=== PATIENT | female | born 1960 | race Caucasian/White ===

== ENCOUNTER 2020-07-29 10:15 | Inpatient (IN) | payer BC ==
[~2020-07-29] VITALS: Ht 162.5 cm; Wt 118.1 kg
[2020-07-29] MEDS ORDERED: CALCIUM CARBONATE 500 MG (TUMS) TAB.CHEW PO PRN (10:30)
[2020-07-29] MEDS ORDERED: FLEET ENEMA ADULT 1 EA BTL PR PRN (10:30)
[2020-07-29] MEDS ORDERED: DOCUSATE SODIUM 100 MG (COLACE) CAP PO PRN (10:30)
[2020-07-29] MEDS ORDERED: guaiFENesin/CODEINE (ROBITUSSIN AC) 10ML UDC PO PRN (10:30)
[2020-07-29] MEDS ORDERED: BISACODYL 10 MG SUPP (DULCOLAX) PR PRN (10:30)
[2020-07-29] MEDS ORDERED: ALPRAZolam 0.25 MG (XANAX) TAB PO PRN (10:30)
[2020-07-29] MEDS ORDERED: ACETAMINOPHEN 500 MG TAB (TYLENOL) PO PRN (10:30)
[2020-07-29] MEDS ORDERED: diphenhydrAMINE 25 MG TAB (BENADRYL) PO PRN (10:30)
[2020-07-29] MEDS ORDERED: ONDANSETRON 4 MG (ZOFRAN) ORAL DISSOLVE TAB PO PRN (10:30)
[2020-07-29] MEDS ORDERED: LOPERAMIDE 2 MG (IMODIUM) TABLET PO PRN (10:30)
[2020-07-29] MEDS ORDERED: LACTULOSE SYRUP 10GM/15ML (ENULOSE) 30ML UDC PO PRN (10:30)
[2020-07-29] MEDS: ENOXAPARIN 40 MG/0.4 ML (LOVENOX) SYR SC SCH ×2 (10:30→21:27)
--- NOTE | 2020-07-29 11:30 | NUR ---
Flor Burger admitted to room 224-1, with an admitting diagnosis of Pneumonia, on 07/29/20 from via private vehicle, accompanied by mother.FLOR BURGER introduced to surroundings, call light, bed controls, phone, TV, temperature control, lights, meal times, smoking policy, visitor policy, side rail policy, bathrooms and showers. Patient Rights given to patient in the handbook.FLOR BURGER verbalizes understanding that [facility] is not responsible for the loss or damage to any personal effects or valuables that are kept in the patients possession during their hospitalization. The following Patient Care Plans were discussed with the Patient: Discharge Planning, Risk for falls, pneumonia. FLOR BURGER verbalizes understanding of Interdisciplinary Patient Education. Patient and/or family were informed about the Rapid Response Team and its purpose. Patient received Patient Rights Booklet, which includes Privacy Act Statement and Data Collection Information Summary.
--- NOTE | 2020-07-29 12:10 | Physical Therapy Evaluation ---
PT Evaluation-General Medical Diagnosis Admission Date Jul 29, 2020 at 11:30 Medical Diagnosis: pneumonia; debility Onset Date: Jul 29, 2020 Therapy Diagnosis Therapy Diagnosis: weakness;abn gait Precautions Precautions/Isolations: Standard Precautions Referral Physician: Jd Reason for Referral: Evaluation/Treatment Medical History Additional Medical History hypoxia, hx of lumbar pain with radicular symptoms right leg, obesity Current History Recent acute hospital stay with pneumonia and bacteremia, ARF with hypoxia, elevated troponin, MSSA, sepsis. Pt had a lengthy hospital stay which resulted in significant functional weakness. Admitted to ARU for skilled therapy intervention to progress to return home as before. Reviewed History: Yes Social History Home: Single Level Current Living Status: Spouse Entry Into Home: Stairs Without Railing PT Steps Into Home: 1 PT Steps Inside Home: 0 Uses the door frame to enter home. Prior Prior Level of Function SCALE: Activities may be completed with or without assistive devices. 0-Lqkmllhmqr-rtwrril completes the activity by him/herself with no assistance from a helper. 5-Set-up or Clean-up Assistance-helper sets up or cleans up; patient completes activity. [place] assists only prior to or following the activity. 4-Supervision or Touching Assistance-helper provides verbal cues and/or touching/steadying and/or contact guard assistance as patient completes activity. Assistance may be provided throughout the activity or intermittently. 3-Partial/Moderate Assistance-helper does LESS THAN HALF the effort. [place] lift s, holds or supports trunk or limbs, but provides less than half the effort. 2-Substantial/Maximal Assistance-helper does MORE THAN HALF the effort. [place] lifts or holds trunk or limbs and provides more than half the effort. 7-Nrceonioj-glmufh does ALL the effort. Patient does none of the effort to complete the activity. Or, the assistance of 2 or more helpers is required for the patient to complete the activity. If activity was not attempted, code reason: 7-Patient Refused. 9-Not Applicable-not attempted and the patient did not perform the activity before the current illness, exacerbation or injury. 10-Not Attempted due to Environmental Limitations-(lack of equipment, weather restraints, etc.). 88-Not Attempted due to Medical Conditions or Safety Concerns. Bed Mobility: 6 Transfers (B,C,W/C): 6 Gait: 6 Stairs: 6 Wheelchair Mobility: 9 Indoor Mobility (Ambulation): Independent Stairs: Independent Independent at PLOF; works a job that she goes in and out of people's home . Active PLOF PT Evaluation-Current Subjective Agrees to PT. Reports she has not done much mobility [place]. Pain Numeric Pain Scale: 8 Location: Lower Location Body Site: Back Pt/Family Goals Her goal is to return home with her spouse and eventually back to work. Objective Patient Orientation: Person, Place, Time, Situation ROM/Strength ROM Lower Extremities WFL Strength Lower Extremities B LE strength is grossly 4-/5 with decreased functional act tolerance. Integumentary/Posture Integumentary Refer to nursing notes for assessment. Bowel Incontinence: No Bladder Incontinence: No Posture normal and symmetrical Neuromuscular (Tone, Coordination, Reflexes) intact and without noted deficits. Sensory Vision: Wears Glasses Hearing: Functional Sensation Right Lower Extremit: Intact Sensation Left Lower Extremity: Intact Transfers Roll Left to Right (QC): 3 Sit to Lying (QC): 3 Lying to Sitting/Side of Bed(Q: 3 Sit to Stand (QC): 3 Chair/Zfh-ul-Nchgi Xfer(QC): 3 Toilet Transfer (QC): 3 Car Transfer (QC): 3 Min assist with functional transfers and takes extra time; requires intermittent cues for sequencing and task segmentation. Takes more than one attempt to stand. Gait Does the Patient Walk?: Yes Mode of Locomotion: Walk Anticipated Mode of Locomotion: Walk Walk 10 feet (QC): 3 (min assist for balance and safety.) Walk 50 ft with 2 Turns(QC): 3 Walk 150 ft (QC): 88 (unable/unsafe to attempt to walk further than 50 ft. ) Walking 10ft/uneven surface-QC: 3 (min assist for balance and safety. ) Distance: 50 ft x 4 reps. Gait Assistive Device: FWW Comments/Gait Description Slow gait with slight forward flexion at hips with decreased step length and foot clearance. Unsteady with functional weakness noted; min to close CGA for safety due to decreased functional activity tolerance as well as right leg pain. Wheelchair Training Does the Pt Use a Wheelchair?: No Wheel 50 ft with 2 turns (QC): 9 Wheel 150 ft (QC): 9 Stairs 1 Step (curb) (QC): 88 (approached step but pt unable to safely attempt; fall risk noted. ) 4 Steps (QC): 88 12 Steps (QC): 88 Balance Sitting Static: Normal Sitting Dynamic: Normal Standing Static: Fair Standing Dynamic: Fair Picking up an Object (QC): 88 (functional weakness and balance deficit limit safety to attempt this task) Treatment Co treat with OT due to the need for skill of 2 clinicians to effectively and safely perform mobility tasks. OT addressed use and placment of UE as PT addressed LE mobility, transfers and gait progression. PT and OT alike provide verbal and tactile cues for patient to complete task. Several sit to stand transfers, sitting EOB and walking that required UE use, core strength / balance. Assessment/Needs Pt admitted to ARU post acute hospital stay that was lengthy. She presents with gross functional weakness and balance deficits paired with decreased functional activity tolerance that impairs bed mobility, transfers and gait. She will benefit from skilled therapy services to address these deficits to allow her to return to indep mobility at home. She is motivated and compliant and was at a high PLOF befor hospital stay. Rehab Potential: Good PT Short Term Goals Short Term Goals Time Frame: Aug 05, 2020 Lying to sitting on side of be: 4 Sit to stand: 4 Walk 50 feet with two turns: 4 Walk 150 feet: 4 1 step (curb): 3 PT Retirement Goals Retirement Goals PT Retirement Goals Time Frame: Aug 19, 2020 Roll Left & Right (QC): 6 Sit to Lying (QC): 6 Lying-Sitting on Side/Bed(QC): 6 Sit to Stand (QC): 6 Chair/Fur-mi-Akoyu Xfer(QC): 6 Toilet Transfer (QC): 6 Car Transfer (QC): 6 Does the Patient Walk: Yes Walk 10 feet (QC): 6 Walk 50ft with 2 Turns (QC): 6 Walk 150 ft (QC): 6 Walking 10ft on Uneven Surface: 5 1 Step (curb) (QC): 6 4 Steps (QC): 6 12 Steps (QC): 5 Picking up an Object (QC): 5 Does the Pt use WC or Scooter?: No Wheel 50 feet with 2 turns (QC: 9 Wheel 150 feet: 9 PT Plan Problem List Problem List: Activity Tolerance, Functional Strength, Safety, Balance, Gait, Transfer, Bed Mobility Treatment/Plan Treatment Plan: Continue Plan of Care Treatment Plan: Bed Mobility, Education, Functional Activity Sandra, Functional Strength, Group Therapy, Gait, Safety, Therapeutic Exercise, Transfers Treatment Duration: Aug 19, 2020 Frequency: At least 5 of 7 days/Wk (IRF) Estimated Hrs Per Day: 1.5 hours per day Patient and/or Family Agrees t: Yes Safety Risks/Education Patient Education: Transfer Techniques, Safety Issues Teaching Recipient: Patient Teaching Methods: Demonstration, Discussion Response to Teaching: Reinforcement Needed Discharge Recommendations Therapy Discharge Recommendati: Post Acute PT Time/GCodes Time In: 1130 Time Out: 1230 (OT eval 1150-1200Co treat 2857-1178 (30 min)) Total Billed Treatment Time: 50 Total Billed Treatment visit EVM 20 FA 30 VENTURA JUARES PT Jul 29, 2020 12:10
[2020-07-29 12:16] VITALS: BP 152/57
--- NOTE | 2020-07-29 13:54 | Progress Note ---
GALE VEGA MED STUDENT 07/29/20 1354: Progress Note H&P CC: weakness & right low back pain radiating to leg HPI: 59 yo F presents with CC of generalized weakness and right lower back pain. Patient states symptoms of right low back pain started approximately 07/07. The pain is described as a sharp pain that goes down the right leg during certain movements.It is rated a 7/10 during these episodes. Nothing makes pain worse or better. Associated symptoms include decreased appetite. She and her went to a local clinic when symptoms did not improve. She was sent home with dx of a pinched nerve. The following day the pain increased to the point of going to the ER. She was again discharged with dx of a pinched nerve. During the following days she began experiencing SOB and was admitted to [facility] from ER on 07/11. Patient explains that during her hospital stay she experienced episodes of visual hallucinations (ants & people in her room). Hallucinations have since resolved. 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 FH: * Father passed at 59 yo with hx of HTN and heart disease * Mother healthy * Brother COPD/ HTN ROS: * General: decreased appetite, reports 35 lbs weight loss since approximately 07/07 * HEENT: no symptoms reported * Cardio: no symptoms reported * Resp: no symptoms reported * Abdominal: no symptoms reported * Extremity: right side leg pain secondary to radiation from back, bad knees * Neuro: no symptoms reported Exam: * General: morbidly obese, no apparent distress, well appearing, mood/ affect congruent * HEENT: erythematous pharynx, no cervical lymphadenopathy or tenderness, neck supple, full movement of neck * Cardio: RRR w/o murmur, rub, or gallop, UE/ LE cap refil < 3 sec * Resp: CTAB, no accessory muscle use, no abnormal breath sounds * Abdominal: hyperactive bowel sounds, tenderness to palpation, no masses, soft * Extremity: LE edema/ pedal edema, weakness, UE/ LE strength +5/5 bilateral, movements smooth and fluid * Neuro: CN II-XII grossly intact, Brachioradialis reflexes +1/4 bilateral, Achilles reflexes +1/4 bilateral, UE/ LE sensation intact Assessment: * MSSA bacteremia * Elevated troponin * Pneumonia * Esophageal thrush * CHF * Morbid obesity * Generalized weakness * Essential HTN * Pulmonary HTN Plan: * PT/ OT therapy * Ambulation * Pain management * DVT prophylaxis * Antibiotics * Salt restriction * Diuresis * Monitor troponin level JANESSA LLANES DO 07/30/20 0459: Supervisory-Addendum Brief Verification & Attestation Participated in pt care: history, MDM, physical Personally performed: exam, history, MDM, supervision of care Care discussed with: Medical Student Procedures: n/a Results interpretation: Verified all documentation Verification and Attestation of Medical Student E/M Service A medical student performed and documented this service in my presence. I reviewed and verified all information documented by the medical student and made modifications to such information, when appropriate. I personally performed the physical exam and medical decision making. Janessa Llanes, Jul 30, 2020,04:59 GALE [employer]GA MED STUDENT Jul 29, 2020 13:54 JANESSA LLANES DO Jul 30, 2020 04:59
--- NOTE | 2020-07-29 14:27 | Occupational Therapy Eval ---
OT Evaluation-General/PLF Medical Diagnosis Admission Date Jul 29, 2020 at 11:30 Medical Diagnosis: pneumonia; debility Onset Date: Jul 29, 2020 Therapy Diagnosis Therapy Diagnosis: Weakness, decreased ADL skills Precautions Precautions/Isolations: Standard Precautions Referral Physician: Jd Girard Reason: Activity Tolerance, Self Care, Evaluation/Treatment, Strengthening/ROM Medical History Additional Medical History psych disorder, gastric banding, sleep apnea, hypotension Current History Pt. came to hospital with bilateral pneumonia, UTI, sepsis, low sodium Reviewed History: Yes Social History Home: Single Level Current Living Status: Spouse Entry Into Home: Stairs Without Railing Steps Into Home: 1 Steps Inside Home: 0 ADL-Prior Level of Function SCALE: Activities may be completed with or without assistive devices. 5-Emorlxfxyn-gfifxce completes the activity by him/herself with no assistance from a helper. 5-Set-up or Clean-up Assistance-helper sets up or cleans up; patient completes activity. [place] assists only prior to or following the activity. 4-Supervision or Touching Assistance-helper provides verbal cues and/or touching/steadying and/or contact guard assistance as patient completes activity. Assistance may be provided throughout the activity or intermittently. 3-Partial/Moderate Assistance-helper does LESS THAN HALF the effort. [place] lifts, holds or supports trunk or limbs, but provides less than half the effort. 2-Substantial/Maximal Assistance-helper does MORE THAN HALF the effort. [place] lifts or holds trunk or limbs and provides more than half the effort. 5-Wtguzmnjj-knjusq does ALL the effort. Patient does none of the effort to complete the activity. Or, the assistance of 2 or more helpers is required for the patient to complete the activity. If activity was not attempted, code reason: 7-Patient Refused. 9-Not Applicable-not attempted and the patient did not perform the activity before the current illness, exacerbation or injury. 10-Not Attempted due to Environmental Limitations-(lack of equipment, weather restraints, etc.). 88-Not Attempted due to Medical Conditions or Safety Concerns. ADL PLOF Comments Pt. was fully independent with daily skills prior to this hospitalization. 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 reports pain in back and down right LE. Reports 8/10 pain. Nursing aware and checking medications. Mental Status/Objective Patient Orientation: Person, Place Current Upper Extremity ROM WFL ADL-Treatment Eating (QC): 4 (per pt. Pt. states that she also does not have appetite.) Oral Hygiene (QC): 7 (Already performed per pt.) Shower/Bathe Self (QC): 7 (Already performed at other facility.) Upper Body Dressing (QC): 7 Lower Body Dressing (QC): 7 On/Off Footwear (QC): 3 (Min assist to slide on shoes.) Toileting Hygiene (QC): 7 Other Treatments Pt. seen for occupational therapy evaluation, and then partial co-treatment with PT due to needed skill of two clinicians during mobility and assessment. PT facilitated transfer training while OT assessed ADL skills. Pt. fatigued and reporting 8/10 pain in back. Transferred supine-sit with mod assist, and sit- stand with min/mod x 2. Practiced donning slip on shoes, and required min assist with this. Attempted step, and ambulating over uneven surface. Pt. demonstrates overall weakness, and requires increased time with transfers and tasks. Please see PT note. Pt. back in reclining chair after session with all needs met. Pt. awaiting lunch tray but states that she is not hungry at this time. Education OT Patient Education: Correct positioning, Modified ADL techniques, Progress toward Goal/Update tx plan, Purpose of tx/functional activities, Reviewed precautions, Rehab process, Transfer techniques Teaching Recipient: Patient Teaching Methods: Demonstration, Discussion Response to Teaching: Verbalize Understanding, Return Demonstration OT Short Term Goals Short Term Goals Time Frame: Aug 05, 2020 Eatin Oral hygiene: 5 Toileting hygiene: 3 Shower/bathe self: 3 Upper body dressin Lower body dressin Putting on/taking off footwear: 4 OT Long-Term Goals Crew Dispatcher Goals Time Frame: Aug 12, 2020 Eating (QC): 6 Oral Hygiene (QC): 6 Toileting Hygiene (QC): 6 Shower/Bathe Self (QC): 4 Upper Body Dressing (QC): 6 Lower Body Dressing (QC): 6 On/Off Footwear (QC): 6 Additional Goals: 1-Demonstrate ADL Tasks, 2-Verbalize Understanding, 3- ImproveStrength/Sandra 1=Demonstrate adherence to instructed precautions during ADL tasks. 2=Patient will verbalize/demonstrate understanding of assistive devices/modifications for ADL. 3=Patient will improve strength/tolerance for activity to enable patient to perform ADL's. OT Education/Plan Problem List/Assessment Assessment: Decreased Activ Tolerance, Decreased UE Strength, Dependent T ransfers, Impaired Bed Mobility, Impaired Funct Balance, Impaired I ADL's, Impaired Self-Care Skills Discharge Recommendations Plan/Recommendations: Continue POC Therapy Discharge Recommendati: Home & Family, Post Acute OT Equpiment Recommendations-D/C: Hip Kit Treatment Plan/Plan of Care Treatment,Training & Education: Yes Patient would benefit from OT for education, treatment and training to promote independence in ADL's, mobility, safety and/or upper extremity function for ADL's. Plan of Care: ADL Retraining, Functional Mobility, UE Funct Exercise/Act Treatment Duration: Aug 12, 2020 Frequency: At least 5 of 7 days/Wk (IRF) Estimated Hrs Per Day: 1.5 hours per day Agreement: Yes Rehab Potential: Good Time/GCodes Start Time: 11:50 Stop Time: 12:30 Total Time Billed (hr/min): 40 Billed Treatment Time 9195-9252 1, EVM x 10minutes 2412-1449 ADL x 15minutes, FA x 15minutes (cotreatment with PT. Please see above note for designated roles.) SEEMA CALLES OT Jul 29, 2020 14:27
--- NOTE | 2020-07-29 15:32 | Occupational Ther Daily Note ---
OT Current Status-Daily Note Subjective Pt seen in recliner. Pt alert/ oriented. Pt agrees to OT tx session, states no pain though a h/o nerve pain which limits standing/ LE ability. Based on plan of tx, pt given a heating pad with 8 layers in sciatic nn area for 20 min. Mental Status/Objective Patient Orientation: Normal For Age ADL-Treatment Therapy Code Descriptions/Definitions Functional [place] Measure: 0=Not Assessed/NA 4=Minimal Assistance 1=Total Assistance 5=Supervision or Setup 2=Maximal Assistance 6=Modified [place] 3=Moderate Assistance 7=Complete IndependenceSCALE: Activities may be completed with or without assistive devices. 4-Vszryfprcy-nwqqhlo completes the activity by him/herself with no assistance from a helper. 5-Set-up or Clean-up Assistance-helper sets up or cleans up; patient completes activity. [place] assists only prior to or following the activity. 4-Supervision or Touching Assistance-helper provides verbal cues and/or touching/steadying and/or contact guard assistance as patient completes activity. Assistance may be provided throughout the activity or intermittently. 3-Partial/Moderate Assistance-helper does LESS THAN HALF the effort. [place] lifts, holds or supports trunk or limbs, but provides less than half the effort. 2-Substantial/Maximal Assistance-helper does MORE THAN HALF the effort. [place] lifts or holds trunk or limbs and provides more than half the effort. 1-Enruwfyih-uipxvp does ALL the effort. Patient does none of the effort to complete the activity. Or, the assistance of 2 or more helpers is required for the patient to complete the activity. If activity was not attempted, code reason: 7-Patient Refused. 9-Not Applicable-not attempted and the patient did not perform the activity before the current illness, exacerbation or injury. 10-Not Attempted due to Environmental Limitations-(lack of equipment, weather restraints, etc.). 88-Not Attempted due to Medical Conditions or Safety Concerns. Eating (QC): 6 Toileting Hygiene (QC): 7 Toilet Transfer (QC): 7 Other Treatment Pt denies ADLs. Pt states a desire to return home, stating PLOF. Pt states she had not been utilizing the w/c at prior hospital, states has been standing/ use of walker. Pt given heating pad under bottom for 20 min. Pt completes UE reaching/ in hand manipulation task with pegs and 1# wrist weight donned bilaterally. Pt has a decreased activity tolerance, requesting break after ~45 seconds of activity. Pt stands 6x during session, pt stands for 30-45 seconds first 3 times with CGA, requires raised recliner and min A x2 during sit to stand. Pt unable to doff hands from walker during stance. Pt returns to sit, each time with cues to reach back for arm rest. Pt states an anxiety during standing and questions how long she may be here. Pt educated on typical duration and variability based on pt's status. Pt given HEP for UE theraband ex, demonstration and min cues utilized during return demonstration. Pt left with PT end of session, all needs met, call light in reach. Education OT Patient Education: Correct positioning, Exercise program, Home exercise program, Progress toward Goal/Update tx plan, Purpose of tx/functional activities, Rehab process, Safety issues, Transfer techniques Teaching Recipient: Patient Teaching Methods: Demonstration, Discussion Response to Teaching: Verbalize Understanding, Return Demonstration, Reinforcement Needed OT Short Term Goals Short Term Goals Time Frame: Aug 05, 2020 Eatin Oral hygiene: 5 Toileting hygiene: 3 Shower/bathe self: 3 Upper body dressin Lower body dressin Putting on/taking off footwear: 4 OT Secondary Social Studies Teacher Goals [facility] Goals Time Frame: Aug 12, 2020 Eating (QC): 6 Oral Hygiene (QC): 6 Toileting Hygiene (QC): 6 Shower/Bathe Self (QC): 4 Upper Body Dressing (QC): 6 Lower Body Dressing (QC): 6 On/Off Footwear (QC): 6 Additional Goals: 1-Demonstrate ADL Tasks, 2-Verbalize Understanding, 3-ImproveStrength/Sandra 1=Demonstrate adherence to instructed precautions during ADL tasks. 2=Patient will verbalize/demonstrate understanding of assistive devices/modifications for ADL. 3=Patient will improve strength/tolerance for activity to enable patient to perform ADL's. OT Education/Plan Problem List/Assessment Assessment: Decreased Activ Tolerance, Decreased UE Strength, Dependent Transfers, Impaired Funct Balance, Impaired I ADL's, Impaired Self-Care Skills Discharge Recommendations Plan/Recommendations: Continue POC Therapy Discharge Recommendati: Home & Family, Post Acute OT Treatment Plan/Plan of Care Treatment,Training & Education: Yes Patient would benefit from OT for education, treatment and training to promote independence in ADL's, mobility, safety and/or upper extremity function for ADL's. Plan of Care: ADL Retraining, Functional Mobility, UE Funct Exercise/Act Treatment Duration: Aug 12, 2020 Frequency: At least 5 of 7 days/Wk (IRF) Estimated Hrs Per Day: 1.5 hours per day Agreement: Yes Rehab Potential: Good Time/GCodes Start Time: 13:15 Stop Time: 14:15 Total Time Billed (hr/min): 60 Billed Treatment Time 1, FA, EX 3 (60) NICKY BROOKE OTR Jul 29, 2020 15:32
--- NOTE | 2020-07-29 15:36 | Physical Therapy Daily Note ---
PT Daily Note-Current Subjective Pt sitting in room as finishing with OT upon arrival. Pt agrees to PT but reports very fatigued. Pain Numeric Pain Scale: 4 Location: Lower Location Body Site: Back Pain Description: Ache Mental Status Patient Orientation: Person, Place, Situation Transfers SCALE: Activities may be completed with or without assistive devices. 5-Xlbutndseu-voovrgh completes the activity by him/herself with no assistance from a helper. 5-Set-up or Clean-up Assistance-helper sets up or cleans up; patient completes activity. [place]o assists only prior to or following the activity. 4-Supervision or Touching Assistance-helper provides verbal cues and/or touching/steadying and/or contact guard assistance as patient completes activity. Assistance may be provided throughout the activity or intermittently. 3-Partial/Moderate Assistance-helper does LESS THAN HALF the effort. [place]o lifts, holds or supports trunk or limbs, but provides less than half the effort. 2-Substantial/Maximal Assistance-helper does MORE THAN HALF the effort. [place] lifts or holds trunk or limbs and provides more than half the effort. 4-Sxhniacdj-wrbqhw does ALL the effort. Patient does none of the effort to complete the activity. Or, the assistance of 2 or more helpers is required for the patient to complete the activity. If activity was not attempted, code reason: 7-Patient Refused. 9-Not Applicable-not attempted and the patient did not perform the activity before the current illness, exacerbation or injury. 10-Not Attempted due to Environmental Limitations-(lack of equipment, weather restraints, etc.). 88-Not Attempted due to Medical Conditions or Safety Concerns. Sit to Lying (QC): 3 Sit to Stand (QC): 3 Toilet Transfer (QC): 3 Weight Bearing Full Weight Bearing Full Weight Bearing Wheelchair Training Does the Pt Use a Wheelchair?: No Exercises Seated Therapy Exercises: Ankle pumps, Long arc quads, Hip flexion, Kicking activity Seated Reps: 15 Treatments Completes Seated EX with written HEP given/reviewed by CHEMICAL TREATMENT PLANT TECHNICIAN, reports needing to use BSC. After finishing, pt TF from BSC to EOB then to Supine in bed, repositioned as needed to comfort, all needs met, call light in hand. Assessment Current Status: Fair Progress Pt demonstrates weakness and fatigue. PT Short Term Goals Short Term Goals Time Frame: Aug 05, 2020 Lying to sitting on side of be: 4 Sit to stand: 4 Walk 50 feet with two turns: 4 Walk 150 feet: 4 1 step (curb): 3 PT Sleeve Tailor Goals Sleeve Tailor Goals PT Sleeve Tailor Goals Time Frame: Aug 19, 2020 Roll Left & Right (QC): 6 Sit to Lying (QC): 6 Lying-Sitting on Side/Bed(QC): 6 Sit to Stand (QC): 6 Chair/[id number] Xfer(QC): 6 Toilet Transfer (QC): 6 Car Transfer (QC): 6 Does the Patient Walk: Yes Walk 10 feet (QC): 6 Walk 50ft with 2 Turns (QC): 6 Walk 150 ft (QC): 6 Walking 10ft on Uneven Surface: 5 1 Step (curb) (QC): 6 4 Steps (QC): 6 12 Steps (QC): 5 Picking up an Object (QC): 5 Does the Pt use WC or Scooter?: No Wheel 50 feet with 2 turns (QC: 9 Wheel 150 feet: 9 PT Plan Problem List Problem List: Activity Tolerance, Functional Strength, Balance, Transfer Treatment/Plan Treatment Plan: Continue Plan of Care Treatment Plan: Bed Mobility, Education, Functional Activity Sandra, Functional Strength, Group Therapy, Gait, Safety, Therapeutic Exercise, Transfers Treatment Duration: Aug 19, 2020 Frequency: At least 5 of 7 days/Wk (IRF) Estimated Hrs Per Day: 1.5 hours per day Patient and/or Family Agrees t: Yes Safety Risks/Education Patient Education: Transfer Techniques, Issued Written HEP, Correct Positioning, Safety Issues Teaching Recipient: Patient Teaching Methods: Discussion Response to Teaching: Verbalize Understanding Time/GCodes Time In: 1415 Time Out: 1455 Total Billed Treatment Time: 40 Total Billed Treatment 1, EX (15m) & FA x2 (25m) JASMEET FLAHERTY CHEMICAL TREATMENT PLANT TECHNICIAN Jul 29, 2020 15:36
--- NOTE | 2020-07-29 17:01 | PM&R Post Admission Assessment ---
PM&R Date of Visit: Jul 29, 2020 Time of Visit: 17:15 History of Present Illness CC: Severe debility following critical illness and hospital stay for 20 days HPI: Reviewed [facility] chart and H&P per medical student. Patient has arrived to [facility] and is settling in. Patient denies pain at this current time. BM moving but needs some more stool softners. Checked meds and labs. PLOF working part time and used no assistive devices. H&P by medical student Sukhdev Paige CC: weakness & right low back pain radiating to leg HPI: 59 yo F presents with CC of generalized weakness and right lower back pain. Patient states symptoms of right low back pain started approximately 07/07. The pain is described as a sharp pain that goes down the right leg during certain movements.It is rated a 7/10 during these episodes. Nothing makes pain worse or better. Associated symptoms include decreased appetite. She and her went to a local clinic when symptoms did not improve. She was sent home with dx of a pinched nerve. The following day the pain increased to the point of going to the ER. She was again discharged with dx of a pinched nerve. During the following days she began experiencing SOB and was admitted to [facility] from ER on 07/11. Patient explains that during her hospital stay she experienced episodes of visual hallucinations (ants & people in her room). Hallucinations have since resolved. PMH: * Anemia * High cholesterol * Hypothyroidism * Obesity * GRUPO * Sleep apnea * HTN PSH: * Tonsillectomy * Colonoscopy * Gastric device * Cervical/ thoracic epidural Allergies: * Ciprofloxacin (itching) * Penicillins (rash) * No known environmental or food allergy SH: * with 1 adopted daughter, no current or hx of tobacco use, no current or hx of recreational drug use, employed at [employer] FH: * Father passed at 59 yo with hx of HTN and heart disease * Mother healthy * Brother COPD/ HTN ROS: * General: decreased appetite, reports 35 lbs weight loss since approximately 07/07 * HEENT: no symptoms reported * Cardio: no symptoms reported * Resp: no symptoms reported * Abdominal: no symptoms reported * Extremity: right side leg pain secondary to radiation from back, bad knees * Neuro: no symptoms reported Exam: * General: morbidly obese, no apparent distress, well appearing, mood/ affect congruent * HEENT: erythematous pharynx, no cervical lymphadenopathy or tenderness, neck supple, full movement of neck * Cardio: RRR w/o murmur, rub, or gallop, UE/ LE cap refil < 3 sec * Resp: CTAB, no accessory muscle use, no abnormal breath sounds * Abdominal: hyperactive bowel sounds, tenderness to palpation, no masses, soft * Extremity: LE edema/ pedal edema, weakness, UE/ LE strength +5/5 bilateral, movements smooth and fluid * Neuro: CN II-XII grossly intact, Brachioradialis reflexes +1/4 bilateral, Achilles reflexes +1/4 bilateral, UE/ LE sensation intact Assessment: * MSSA bacteremia * Elevated troponin * Pneumonia * Esophageal thrush * CHF * Morbid obesity * Generalized weakness * Essential HTN * Pulmonary HTN Plan: * PT/ OT therapy * Ambulation * Pain management * DVT prophylaxis * Antibiotics * Salt restriction * Diuresis * Monitor troponin level [facility] notes copied and pasted: Hospitalist Progress Note Note date:07/28/2020 ADMIT DATE07/11/2020 HospitalLOS: 17 days Primary Diagnosis-MSSA bacteremia Subjective: HPI-Angie Roberts a 59 y.o.femalewho was admitted to [facility] for evaluation and management of shortness of breath. Initially she was found to be hypoxic in the ER with oxygen saturation in mid 80s. Chest x-ray showed pulmonary vascular congestion with bilateral fairly diffuse airspace disease, right worse than left. It also showed right upper lung consolidation consistent with pneumonia. Initial testing also showed elevated d-dimer, CTA negative for pulmonary embolism. It did show coronary artery calcification, enlarged pulmonary artery suggesting pulmonary hypertension, diffuse bilateral airspace disease most pronounced of the bilateral perihilar and upper lung consistent with pneumonia and enlarged fatty liver. Echocardiogram showed pulmonary hypertension, diastolic dysfunction, left ventricular hypertrophy, normal systolic function and aortic regurgitation. Elevated troponin, no ST changes concerning for STEMI. She was then started on heparin drip and cardiology was consulted.As per cardiology the troponin elevation was most likely due to her pulmonary status and there was no need for heparin drip. Noted to have pharyngeal thrush. Started on nystatin magic mouth wash and fluconazole. Has completed 7 days of therapy. Today, patient has no complaints.Was finally told that she had been approved for inpatient rehab x7 days. She is excited about this news. No chest pain, shortness of breath, dizziness, cough, palpitations, nausea vomiting, diarrhea, fevers or chills. ROS as above Objective: BP (!) 166/76 (BP Location: Right arm, Patient Position (BP): Supine) | Pulse 77 | Temp 98.9 F (37.2 C) (Oral) | Resp 18 | Ht 5' 4" (1.626 m) | Wt 129.7 kg (286 lb) | LMP 02/21/2014 Comment: | SpO2 95% | BMI 49.09 kg/m The range of BP in the last 24 hours is:BP: (130-166)/(66-76) Intake/Output Summary (Last 24 hours) at 07/28/2020 1838 Last data filed at 07/28/2020 1052 Gross per 24 hour Intake 550 ml Output 1250 ml Net -700 ml Physical Exam: Constitutional: See Vitals above.noacute distress. HEENT: No scleral icterus or conjunctival injection. Oral mucosa moist, Cardiovascular:RRR without murmur, no JVD, no edema Respiratory: no respiratory distress. Auscultation: CTAB Gastrointestinall: Abdomen Soft, Non-tender, Non-distended Musculoskeletal: No gross deformity noted Neurologic: No focal deficit noted Psychiatric: Alert and Oriented x 3. Normal judgement Ancillary Testing No results found for this or any previous visit (from the past 24 hour(s)). Reviewed all imaging reports in [facility] over the last 24 hours Facility-Administered Medications as of 07/28/2020 Medication Dose Frequency Provider Last Rate Last Dose ondansetron (ZOFRAN) 4 mg/2 mL injection 4 mg 4 mg q 6 hour PRN Stacy Hearn MD 4 mg at 07/26/20 1049 docusate sodium (COLACE) capsule 100 mg 100 mg BID PRN Stacy Hearn MD sodium chloride (OCEAN) 0.65 % nasal soln 2 [place] 2 [place] q 15 min PRN Siddhartha Collier MD 2 [place] at 07/19/20 1027 [COMPLETED] ceFAZolin (ANCEF,KEFZOL) 2000 mg in sodium chloride 0.9% 60 mL IVPB (PREMIX) 2,000 mg 2,000 mg q 8 hour Citlali Cali MD Stopped at 07/28/20 1810 [COMPLETED] iopamidoL (ISOVUE-300) 61 % injection (drawn from multi-use bulk pack) 133 mL 133 mL Intra-Proc Once Rai Tovar MD 133 mL at 07/16/20 1045 [COMPLETED] iohexol (OMNIPAQUE) 300 mg/mL oral solution 30 mL 30 mL Pre-Proc Once Rai Tovar MD 30 mL at 07/16/20 0827 [COMPLETED] sodium chloride 0.9% bolus solution 100 mL 100 mL ONCE Rai Tovar MD 6,000 mL/hr at 07/16/20 1043 100 mL at 07/16/20 1043 [COMPLETED] sodium chloride flush injection 10 mL 10 mL ONCE Rai Tovar MD 10 mL at 07/16/20 1041 vancomycin (FIRVANQ) oral solution 125 mg 125 mg q 12 hour (BID) Citlali Cali MD 125 mg at 07/28/20 0815 [COMPLETED] sodium chloride 0.9% bolus solution 100 mL 100 mL ONCE Rai Tovar MD sodium chloride flush injection 10 mL 10 mL BID Citlali Cali MD 10 mL at 07/28/20 1017 sodium chloride flush injection 10 mL 10 mL See Admin Notes Citlali Cali MD 10 mL at 07/26/20 1049 sodium chloride 0.9 % 250 mL flush bag 25 mL 25 mL See Admin Notes Citlali Cali MD Stopped at 07/19/20 1846 metoprolol tartrate (LOPRESSOR) tablet 50 mg 50 mg BID Siddhartha Collier MD 50 mg at 07/28/20 0815 dextrose 5 % in water 250 mL flush bag 25 mL 25 mL See Admin Notes Siddhartha Collier MD [COMPLETED] heparin injection 4,000 Units 4,000 Units ONCE Siddhartha Collier MD 4,000 Units at 07/12/20 0716 [COMPLETED] SODIUM CHLORIDE 0.9 % (FLUSH) INJECTION SYRINGE (CABINET OVERRIDE) 10 mL at 07/12/20 0832 [COMPLETED] heparin injection 4,000 Units 4,000 Units ONCE Siddhartha Collier MD 4,000 Units at 07/12/20 1424 [COMPLETED] heparin injection 4,000 Units 4,000 Units ONCE Siddhartha Collier MD 4,000 Units at 07/12/205 lisinopriL (PRINIVIL) tablet 20 mg 20 mg BID Siddhartha Collier MD 20 mg at 07/28/20 0815 [COMPLETED] lisinopriL (PRINIVIL) tablet 10 mg 10 mg ONCE Siddhartha Collier MD 10 mg at 07/12/207 levalbuterol (XOPENEX) 0.63 mg/3 mL inhalation solution 0.63 mg 0.63 mg Resp q 6 h PRN Siddhartha Collier MD [COMPLETED] potassium chloride (KLOR-CON) SR tablet 40 mEq 40 mEq ONCE Siddhartha Collier MD 40 mEq at 07/12/20 235 enoxaparin (LOVENOX) injection 70 mg 0.5 mg/kg q 24 hour Siddhartha Collier MD 70 mg at 07/27/20 2147 [COMPLETED] acetaminophen (TYLENOL) tablet 1,000 mg 1,000 mg ONCE Ron Sellers MD 1,000 mg at 07/11/20 0824 lidocaine (LIDODERM) 5 % topical patch 1 Patch 1 Patch Daily Andrew Sotelo PA-C 1 Patch at 07/28/20 0817 [COMPLETED] ibuprofen (MOTRIN) tablet 600 mg 600 mg ONCE Ron Sellers MD 600 mg at 07/11/20 0824 [COMPLETED] iopamidoL (ISOVUE-370) 76 % injection (single-use vial) 100 mL 100 mL Intra-Proc Once Ron Sellers MD 83 mL at 07/11/20 1037 [COMPLETED] sodium chloride 0.9% bolus solution 100 mL 100 mL ONCE Ron Sellers MD Stopped at 07/11/20 1031 [COMPLETED] cefTRIAXone (ROCEPHIN) 2,000 mg in sodium chloride 0.9% 50 mL IVPB (MBP) 2,000 mg ONCE Ron Sellers MD Stopped at 07/11/20 1127 [COMPLETED] sodium chloride 0.9% bolus solution 1,641 mL 30 mL/kg ([place]) ONCE Ron Sellers MD Stopped at 07/11/20 1530 buPROPion HCL (WELLBUTRIN SR) SR 12 hour tablet 100 mg 100 mg BID Andrew Sotelo PA-C 100 mg at 07/28/20 0815 DULoxetine (CYMBALTA) capsule 60 mg 60 mg Daily Andrew Sotelo PA-C 60 mg at 07/28/20 0815 cyclobenzaprine (FLEXERIL) tablet 10 mg 10 mg TID PRN Andrew Sotelo PA-C 10 mg at 07/28/20 1742 levothyroxine (SYNTHROID) tablet 125 mcg 125 mcg Daily EARLY Andrew Sotelo PA-C 125 mcg at 07/28/20 0425 pantoprazole (PROTONIX) tablet 40 mg 40 mg AC Daily Breakfast Andrew Sotelo PA-C 40 mg at 07/28/20 0814 dextromethorphan-guaiFENesin (ROBITUSSIN DM) 10-100 mg/5 mL oral solution 10 mL 10 mL q 4 hour PRN Andrew Sotelo PA-C hydrALAZINE (APRESOLINE) 20 mg/mL injection 10 mg 10 mg q 6 hour PRN Andrew Sotelo PA-C 10 mg at 07/14/20 0820 SEPSIS ANTIBIOTIC ALERT TO PHARMACY 1 Each See Admin Notes Andrew Sotelo PA- C acetaminophen (TYLENOL) tablet 650 mg 650 mg q 6 hour PRN Andrew Sotelo PA-C 650 mg at 07/23/20 1643 HYDROcodone-acetaminophen (NORCO) 5-325 mg per tablet 1 Tablet 1 Tablet q 4 hour PRN Andrew Sotelo PA-C 1 Tablet at 07/28/20 0814 naloxone (NARCAN) 0.4 mg/mL injection 0.1 mg 0.1 mg See Admin Notes Andrew Sotelo PA-C w bisacodyL (DULCOLAX) rectal suppository 10 mg 10 mg Daily PRN Andrew Sotelo PA-C [COMPLETED] SODIUM CHLORIDE 0.9 % (FLUSH) INJECTION SYRINGE (CABINET OVERRIDE) 10 mL at 07/11/20 1331 [COMPLETED] pneumococcal polysaccharide vaccine (PPSV23) (PNEUMOVAX 23) injection 0.5 mL 0.5 mL ONCE Stacy Hearn MD 0.5 mL at 07/15/20 1007 [COMPLETED] SODIUM CHLORIDE 0.9 % (FLUSH) INJECTION SYRINGE (CABINET OVERRIDE) 10 mL at 07/11/20 1616 Assessment: Principal Problem: MSSA bacteremia Active Problems: Essential hypertension Morbid obesity with BMI of 50.0-59.9, adult Obstructive sleep apnea syndrome Pneumonia of both lungs due to infectious organism Bandemia Hyponatremia Pulmonary hypertension Thrombocytosis Esophageal thrush Resolved Problems: Hypoxia (07/11/2020) Sinus tachycardia (07/11/2020) Elevated troponin (07/11/2020) Acute CHF (congestive heart failure) (07/11/2020) MSSA (methicillin susceptible Staphylococcus aureus) septicemia (07/15/2020) Sepsis with organ dysfunction () Sepsis due to pneumonia () Plan: 1. MSSA bacteremia: 2. Chronic diastolic heart failure: Blood cultures MSSA. Repeat blood cultures 07/15 no growth to date. CEZAR results reviewed with the patient: No evidence of endocarditis Continuecefazolin for MSSA bacteremia,continue p.o. vancomycin for C. difficile prophylaxis. Initially she was started on heparin drip for elevated troponin but reviewing the cardiology consult note, although they do not specify clearly to discontinue heparin drip but seems like there is no concern regarding possible cardiac etiology of elevated troponin, troponin elevation likely secondary to pneumonia and shortness of breath Continue home CPAP overnightcontinue to wean oxygen. Patient with evidence of volume overload. 5. Nausea: Zofran PRN. 6. Back spasm:Continue Flexeril prn. 7. Thrombocytosis:peripheral smear no neoplasm..referral to hematology on discharge. 8. Hyponatremia: Encourage p.o. fluid intake. Patient appears slightly volume depleted. 9. Essential hypertension: Continue metoprololand lisinopril. Discontinue clonidine -monitor for rebound tachycardia. This was not a home medication. 10. Obesity:Body mass index is 53.69 kg/m.Is color excess. Lifestyle modification. DVT Prophylaxis:Lovenox Code Status:Full Code Disposition:Insurance authorization received for inpatient rehab. Patient will be accepted to facility tomorrow morning before 11. -Expected Discharge to:Home -Follow up appointments needed:pcp -Discharge needs:pending hospital course. 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) Alcohol Use: Denies Use Recreational Drug Use: No Smoking Status: Never a Smoker Physical Abuse Screen: No Sexual Abuse: No Recent Foreign Travel: No Contact w/other who traveled: No Recent Hopitalizations: No Recent Infectious Disease Expo: No Immunizations Up To Date Pediatric: Yes Seasonal Allergies Seasonal Allergies: No Past Medical History Respiratory: Sleep Apnea Currently Using CPAP: Yes Currently Using BIPAP: No Cardiac: High Cholesterol, Hypertension Sexually Transmitted Disease: No HIV/AIDS: No Gastrointestinal: Polyps Musculoskeletal: Arthritis Are Your Blood Sugars Over 250: No History of Blood Disorders: No Adverse Reaction to Blood [place]: No Family History Cardiovascular disease G8 BROTHER Congenital heart disease Prior Level of Function Bed Mobility: 6 Transfers: 6 Gait: 6 Stairs: 6 Wheelchair Mobility: 9 Indoor Mobility (Ambulation): Independent Stairs: Independent Self Care: Independent Functional Cognition: Unknown 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 ) Walking 10ft on uneven surface: 3 (min assist for balance and safety. ) Gait Assistive Device: FWW Does the Pt Use a Wheelchair: No Wheel 50 ft with 2 turns: 9 Wheel 150 ft: 9 1 Step (curb): 88 (approached step but pt unable to safely attempt; fall risk noted. ) 4 Steps: 88 12 Steps: 88 Picking up an Object: 88 (functional weakness and balance deficit limit safety to attempt this task) Eatin Oral Hygiene: 7 (Already performed per pt.) Shower/Bathe Self: 7 (Already performed at other facility.) Upper Body Dressin Lower Body Dressin On/Off Footwear: 3 (Min assist to slide on shoes.) Toileting Hygiene: 7 Toilet Transfer: 7 PM&R Allergy/Meds/Data Review Allergies Coded Allergies: No Allergy Information Available (Unverified , 07/29/20) Home Medications Scheduled Furosemide (Furosemide), 20 MG PO DAILY, (Reported) Levothyroxine Sodium (Levothyroxine Sodium), 125 MCG PO DAILY, (Reported) Lisinopril (Lisinopril), 20 MG PO DAILY, (Reported) Metoprolol Tartrate (Metoprolol Tartrate), 50 MG PO BID, (Reported) Scheduled PRN Cyclobenzaprine HCl (Cyclobenzaprine HCl), 10 MG PO BID PRN for MUSCLE SPASMS, (Reported) Current Medications Current Medications Reviewed Review of Systems Constitutional: see HPI, malaise, weakness EENTM: no symptoms reported Respiratory: no symptoms reported Cardiovascular: no symptoms reported Gastrointestinal: constipation Genitourinary: no symptoms reported Musculoskeletal: back pain Skin: no symptoms reported Psychiatric/Neurological: Depressed All Other Systems Reviewed Negative Unless Noted: Yes Physical Exam Physical Exam Vital Signs Vital Signs - First Documented 07/29/20 12:16 Temp 36.2 Pulse 73 Resp 20 B/P (MAP) 152/57 Pulse Ox 95 O2 Delivery Room Air Capillary Refill : Height, Weight, BMI Height: '" Weight: lbs. oz. kg; 47.60 BMI Method: General Appearance: No Apparent Distress, WD/WN, Chronically ill, Obese Eyes: Bilateral Eye Normal Inspection, Bilateral Eye PERRL HEENT: PERRL/EOMI, Normal ENT Inspection, Pharynx Normal Neck: Full Range of Motion, Normal Inspection, Non Tender, Supple, Carotid Bruit Respiratory: Chest Non Tender, Lungs Clear, Normal Breath Sounds, No Accessory Muscle Use, No Respiratory Distress Cardiovascular: Regular Rate, Rhythm, No Edema, No Gallop, No JVD, No Murmur, Normal Peripheral Pulses Gastrointestinal: Normal Bowel Sounds, No Organomegaly, No Pulsatile Mass, Non Tender, Soft Back: Normal Inspection, Decreased Range of Motion, Muscle Spasm, Vertebral Tenderness Extremity: Normal Capillary Refill, Normal Inspection, Normal Range of Motion, Non Tender, No Calf Tenderness, No Pedal Edema Neurologic/Psychiatric: Alert, Oriented x3, No Motor/Sensory Deficits, Normal Mood/Affect, 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 Norm as Tested, Abnormal Gait, Motor Weakness (legs 4/5) Skin: Normal Color, Warm/Dry Lymphatic: No Adenopathy PM&R Medical Assessment & Plan REHAB/MEDICAL ASSESSMENT AND PLAN: REHAB IMPAIRMENT GROUP: Critical illness myopathy ETIOLOGIC DIAGNOSIS: Critical illness myopathy The comorbidities that impact the patients function and/or functional outcome by: Severe back pain limits activity, recent MSSA bacteremia, Type 2 [place] REHAB PLAN: The patient is being admitted to our comprehensive inpatient rehabilitation facility and can tolerate the intensity of service consisting of at least: 180 minutes of therapy a day, 5 out of 7 days a week Rehab treatment will consist of: PT OT will aggressively treat back spasms and increase core muscles in order to regain function of torso and ambulate safely The patient/family has a good understanding of our discharge process and will benefit from an interdisciplinary inpatient rehabilitation program. The patient has potential to make improvement and is in need of at least two of the following multidisciplinary therapies including but not limited to physical, occupational, speech, and prosthetics and orthotics. Additionally the patient will need services from respiratory, nutritional services, wound care, psychology, etc. (Customize this to each patient). Given the patients complex condition and risk of further medical complications, rehabilitation services cannot be safely or effectively provided at a lower level of care such as a senior care facility. BARRIERS TO DISCHARGE: Severe debility ESTIMATED LOS: 9 days DISPOSITION: Home RELEVANT CHANGES SINCE PREADMISSION SCREENING: I have compared the patients medical and functional status at the time of the preadmission screening and there are: no changes PROGNOSIS: Good REHABILITATION GOALS: 1. PT OT will aggressively treat back spasms and increase core muscles in order to regain function of torso and ambulate safely All the above goals were reviewed with the patient and he/she is in agreement. By signing this document, I acknowledge that I have personally performed a full physical examination on this patient within 24 hours of admission to this inpatient rehabilitation facility and have determined the patient to be able to tolerate the above course of treatment at an intensive level for a reasonable period of time. I will be completing a detailed individualized Plan of Care for this patient by day #4 of the patients stay based upon the Preadmission Screen, the Post-Admission Evaluation, and the therapy evaluations. Admission Dx/Comorbidities: (1) Debility ICD Codes: R53.81 - Other malaise (2) Back pain ICD Codes: M54.9 - Dorsalgia, unspecified (3) Type 2 myocardial infarction ICD Codes: I21.A1 - Myocardial infarction type 2 (4) GRUPO on CPAP ICD Codes: G47.33 - Obstructive sleep apnea (adult) (pediatric); Z99.89 - Dependence on other enabling machines and devices (5) Obesity, morbid, BMI 40.0-49.9 ICD Codes: E66.01 - Morbid (severe) obesity due to excess calories (6) Edema ICD Codes: R60.9 - Edema, unspecified (7) MSSA (methicillin susceptible Staphylococcus aureus) septicemia ICD Codes: A41.01 - Sepsis due to Methicillin susceptible Staphylococcus aureus KRYSTIAN LLANES DO Jul 29, 2020 17:01
[2020-07-29] MEDS ORDERED: FURO20TA4 PO (17:13)
[2020-07-29] MEDS ORDERED: CYCL10TA9 PO (17:13)
[2020-07-29] MEDS ORDERED: METO50TA15 PO (17:13)
[2020-07-29] MEDS ORDERED: LEVO125T6 PO (17:13)
[2020-07-29] MEDS ORDERED: LISI-552 PO (17:13)
[2020-07-29 18:00] VITALS: BP 142/72
[2020-07-29] MEDS: DOCUSATE SODIUM 100 MG (COLACE) CAP PO SCH (20:12)
[2020-07-29] MEDS: SENNA W/DOCUSATE (SENOKOT S) TABLET PO SCH (20:13)
[2020-07-29] MEDS: polyethylene glycoL POWDER 17 GM (MIRALAX) PACK PO SCH (20:13)
[2020-07-29] MEDS: MELATONIN 3 MG TABLET PO PRN (21:27)
[2020-07-29] MEDS: meTOprolol TARTRATE 50 MG (LOPRESSOR) TAB PO SCH (21:27)
[2020-07-30 05:30] VITALS: BP 117/63
[2020-07-30 06:27] LABS: BASOPHILS % (AUTO) 1 % (0-10); EOSINOPHILS # (AUTO) 0.1 10^3/uL (0.0-0.3); EOSINOPHILS % (AUTO) 1 % (0-10); HEMATOCRIT 35 % (35-52); HEMOGLOBIN 10.9 G/DL (11.5-16.0); LYMPHOCYTES # (AUTO) 1.4 X 10^3 (1.0-4.0); LYMPHOCYTES % (AUTO) 31 % (12-44); MEAN CORPUSCULAR HEMOGLOBIN 27 PG (25-34); MEAN CORPUSCULAR HGB CONC 31 G/DL (32-36); MEAN CORPUSCULAR VOLUME 87 FL (80-99); MEAN PLATELET VOLUME 8.7 FL (7.4-10.4); MONOCYTES # (AUTO) 0.8 X 10^3 (0.0-1.0); MONOCYTES % (AUTO) 18 % (0-12); NEUTROPHILS # (AUTO) 2.1 X 10^3 (1.8-7.8); NEUTROPHILS % (AUTO) 49 % (42-75); PLATELET COUNT 551 10^3/uL (130-400); WHITE BLOOD COUNT 4.3 10^3/uL (4.3-11.0)
[2020-07-30 06:46] LABS: ALANINE AMINOTRANSFERASE 6 U/L (0-55); ALBUMIN 2.9 GM/DL (3.2-4.5); ALKALINE PHOSPHATASE 110 U/L (40-136); BILIRUBIN,TOTAL 0.3 MG/DL (0.1-1.0); BUN/CREATININE RATIO 13; CALCIUM 8.3 MG/DL (8.5-10.1); CARBON DIOXIDE 24 MMOL/L (21-32); CHLORIDE 100 MMOL/L (98-107); CREATININE SERUM 0.64 MG/DL (0.60-1.30); GFR ESTIMATED > 60; GLUCOSE 92 MG/DL (70-105); POTASSIUM 3.7 MMOL/L (3.6-5.0); SODIUM 137 MMOL/L (135-145)
[2020-07-30] MEDS: FUROSEMIDE 20 MG (LASIX) TAB PO SCH (08:39)
[2020-07-30] MEDS: LEVOTHYROXINE 125 MCG (LEVOTHROID) TABLET PO SCH (08:39)
[2020-07-30] MEDS: ENOXAPARIN 40 MG/0.4 ML (LOVENOX) SYR SC SCH ×2 (08:39→21:43)
[2020-07-30] MEDS: SENNA W/DOCUSATE (SENOKOT S) TABLET PO SCH ×2 (08:39→21:43)
[2020-07-30] MEDS: lisINopril 20 MG (PRINIVIL) TABLET PO SCH (08:39)
[2020-07-30] MEDS: DOCUSATE SODIUM 100 MG (COLACE) CAP PO SCH ×2 (08:39→21:43)
[2020-07-30] MEDS: meTOprolol TARTRATE 50 MG (LOPRESSOR) TAB PO SCH ×2 (08:39→21:43)
[2020-07-30] MEDS: polyethylene glycoL POWDER 17 GM (MIRALAX) PACK PO SCH ×2 (09:35→21:43)
[2020-07-30] MEDS ORDERED: FLUT9.9S NSEACH (10:27)
[2020-07-30] MEDS ORDERED: LEVA0.6334 IH (10:27)
[2020-07-30] MEDS ORDERED: TRAM50TA3 PO (10:27)
[2020-07-30] MEDS ORDERED: ACET325T38 PO (10:27)
[2020-07-30] MEDS ORDERED: METO50TA15 PO (10:27)
[2020-07-30] MEDS ORDERED: OMEP-401 PO (10:27)
[2020-07-30] MEDS ORDERED: CELE100C84 PO (10:27)
[2020-07-30] MEDS ORDERED: GUAI5LIQ11 PO (10:27)
[2020-07-30] MEDS ORDERED: BUPR100T8 PO (10:27)
[2020-07-30] MEDS ORDERED: DCS100C PO (10:27)
[2020-07-30] MEDS ORDERED: IBUP-1773 PO (10:27)
[2020-07-30] MEDS ORDERED: LIDO700A45 TP (10:27)
--- NOTE | 2020-07-30 10:32 | NUR ---
THE MED REC WAS ENTERED USING THE [facility] DISCHARGE ORDERS ON THE MEDICATION PORTION OF THE DISCHARGE IT LISTS BUPROPION [id number] AND DULOXETINE 60MG. THE DULOXETINE IS PAST DUE FOR A REFILL AND LOOKS IF THE PCP SWITCHED HER FROM DULOXETINE TO BUPROPION. THE ONLY ONE I PUT ON THE MED REC WAS BUPROPION AND I LEFT A MESSAGE WITH THE PRESCRIBER AND WILL UPDATE THE MED REC/NOTES NEEDED Addendum: 08/06/20 at 0954 by MARGOTH REEVES [facility] SPOKE WITH THE PT AND WENT THRU THE EXT MED HISTORY TO SET THE MED REC TO WHAT THE PT WAS TAKING PRIOR TO [facility]. MEDICATIONS THAT HAVE BEEN REMOVED DUE TO PT NOT TAKING PRIOR TO [facility]: ROBITUSSIN DM DOCUSATE FUROSEMIDE 20MG LIDOCAINE 5% PATCH LEVALBUTEROL 0.63MG/3ML METOPROLOL TART 50MG MEDICATIONS THAT WERE ADDED TO THE MED REC: CYMBALTA 60MG- WHEN THE PT WAS FIRST ADMITTED I WENT TO SPEAK WITH HER AND WHEN I ASKED HER ABOUT THIS MEDICATION SHE SHOOK HER HEAD AND SAID IT DIDNT SOUND FAMILIAR. WHEN I SPOKE WITH HER AGAIN ON 08-05-2020 TO COMPLETE THE MED REC PT SAYS SHE DOES TAKE NEEDED FOR PAIN MEDICATIONS THAT HAVE BEEN CHANGED: CYCLOBENZAPRINE 10MG- PT WAS TAKING UP TO TID PRN LISINOPRIL-PT WAS TAKING 10MG BID PRIOR TO [facility] (THEY CHANGED THIS TO 20MG ONCE DAILY) OMEPRAZOLE 20MG- PT ONLY TAKES THIS PRN HOWEVER ON THE [facility] DISCHARGE IT IS SCHEDULED
--- NOTE | 2020-07-30 11:09 | PM&R Progress Note ---
Subjective HPI/CC On Admission Date Seen by Provider: Jul 30, 2020 Time Seen by Provider: 11:15 Subjective/Events-last exam Patient settling in RIght back and leg pain improved Worse CPAP last night Dr Cabrera consulted for night time polyuria and incontinence 2+ edema lower legs still KRISTEN wraps placed due to intolerance to GERARDO hose Hgb 10.4 Iron pending Checked meds and labs Conferred with RN Reviewed therapy notes Review of Systems General: Fatigue, Malaise Musculoskeletal: back pain Neurological: Weakness, Incoordination Objective Exam Vital Signs Vital Signs Date Time Temp Pulse Resp B/P (MAP) Pulse Ox O2 Delivery O2 Flow Rate FiO2 07/30/20 20:00 94 Room Air 07/30/20 16:42 37.4 77 16 142/66 (91) Capillary Refill : Less Than 3 Seconds General Appearance: No Apparent Distress, WD/WN, Chronically ill, Obese HEENT: PERRL/EOMI, Normal ENT Inspection, Pharynx Normal Neck: Full Range of Motion, Normal Inspection, Non Tender, Supple, Carotid Bruit Respiratory: Chest Non Tender, Lungs Clear, Normal Breath Sounds, No Accessory Muscle Use, No Respiratory Distress Cardiovascular: Regular Rate, Rhythm, No Edema, No Gallop, No JVD, No Murmur, Normal Peripheral Pulses Gastrointestinal: Normal Bowel Sounds, No Organomegaly, No Pulsatile Mass, Non Tender, Soft Back: Normal Inspection, Decreased Range of Motion, Muscle Spasm, Vertebral Tenderness Extremity: Normal Capillary Refill, Normal Inspection, Normal Range of Motion, Non Tender, No Calf Tenderness, No Pedal Edema Neurologic/Psychiatric: Alert, Oriented x3, No Motor/Sensory Deficits, Normal Mood/Affect, sales developer II-XII Norm as Tested, Abnormal Gait, Motor Weakness (legs 4/5) Skin: Normal Color, Warm/Dry Lymphatic: No Adenopathy Results/Procedures Lab Laboratory Tests 07/30/20 05:57 Patient resulted labs reviewed. FIM Transfers Therapy Code Descriptions/Definitions Functional [place] Measure: 0=Not Assessed/NA 4=Minimal Assistance 1=Total Assistance 5=Supervision or Setup 2=Maximal Assistance 6=Modified [place] 3=Moderate Assistance 7=Complete IndependenceSCALE: Activities may be completed with or without assistive devices. 2-Ghzfiuzvdw-krnxrxq completes the activity by him/herself with no assistance from a helper. 5-Set-up or Clean-up Assistance-helper sets up or cleans up; patient completes activity. [place] assists only prior to or following the activity. 4-Supervision or Touching Assistance-helper provides verbal cues and/or touching/steadying and/or contact guard assistance as patient completes activity. Assistance may be provided throughout the activity or intermittently. 3-Partial/Moderate Assistance-helper does LESS THAN HALF the effort. [place] lifts, holds or supports trunk or limbs, but provides less than half the effort. 2-Substantial/Maximal Assistance-helper does MORE THAN HALF the effort. [place] lifts or holds trunk or limbs and provides more than half the effort. 9-Amxtcdfnr-dwytkz does ALL the effort. Patient does none of the effort to complete the activity. Or, the assistance of 2 or more helpers is required for the patient to complete the activity. If activity was not attempted, code reason: 7-Patient Refused. 9-Not Applicable-not attempted and the patient did not perform the activity before the current illness, exacerbation or injury. 10-Not Attempted due to Environmental Limitations-(lack of equipment, weather restraints, etc.). 88-Not Attempted due to Medical Conditions or Safety Concerns. Roll Left to Right (QC): 3 Sit to Lying (QC): 3 Sit to Stand (QC): 3 Chair/Pgg-nr-Ailwt Xfer(QC): 3 Car Transfer (QC): 3 Gait Training Does the Patient Walk?: Yes Walk 10 feet (QC): 3 (min assist for balance and safety.) Walk 50 ft with 2 Turns(QC): 3 Walk 150 ft (QC): 88 (unable/unsafe to attempt to walk further than 50 ft. ) Walking 10ft/uneven surface-QC: 3 (min assist for balance and safety. ) Gait Assistive Device: FWW Wheelchair Training Does the Pt Use a Wheelchair?: No Wheel 50 ft with 2 turns (QC): 9 Wheel 150 ft (QC): 9 Stair Training 1 Step (curb) (QC): 88 (approached step but pt unable to safely attempt; fall risk noted. ) 4 Steps (QC): 88 12 Steps (QC): 88 Balance Picking up an Object (QC): 88 (functional weakness and balance deficit limit safety to attempt this task) ADL-Treatment Eating (QC): 6 Oral Hygiene (QC): 7 (Already performed per pt.) Shower/Bathe Self (QC): 7 (Already performed at other facility.) Upper Body Dressing (QC): 7 Lower Body Dressing (QC): 7 On/Off Footwear (QC): 3 (Min assist to slide on shoes.) Toileting Hygiene (QC): 7 Toilet Transfer (QC): 7 Assessment/Plan Assessment and Plan Assess & Plan/Chief Complaint Assessment: Severe back pain with debility after 20 days hospital course at [facility] MSSA bacteremia HTN HLP Thrombocytosis Obesity GRUPO on CPAP Plan: Monitor labs Check iron level IRF protocol Fall risk (1) Debility (2) Back pain (3) Type 2 myocardial infarction (4) GRUPO on CPAP (5) Obesity, morbid, BMI 40.0-49.9 (6) Edema (7) MSSA (methicillin susceptible Staphylococcus aureus) septicemia KRYSTIAN LLANES DO Jul 30, 2020 11:09
--- NOTE | 2020-07-30 11:10 | Individualized Plan of Care ---
Individualized Plan of Care Rehab Nursing IPOC Order Admission Date Jul 29, 2020 at 11:30 Current Orders Orders Admission Order(Inpt,Obs,Sdc) (07/29/20 10:28) Vital Signs: Per Unit Policy ( 08,16,00 (07/29/20 10:28) Wallace Burt 09,21 (07/29/20 10:28) Sequential Compression Device Q4H (07/29/20 10:28) Methodologist-Inpt Rehab Con (07/29/20 10:28) Rehab Nursing Orders-Ipoc (07/29/20 10:28) Physical Therapy Rehab Orders (07/29/20 10:28) Occupational Therapy Rehab Ord (07/29/20 10:28) Speech Therapy Rehab Orders (07/29/20 10:28) Cbc With Automated Diff (07/30/20 06:00) Comprehensive Metabolic Panel (07/30/20 06:00) General/Regular (07/29/20 Lunch) Intake & Output 06,14,22 (07/29/20 10:28) Precautions (Aru) (07/29/20 10:28) Rehab-Intensity Of Therapy (07/29/20 10:28) Initiate Admission Nursing Pro .admission (07/29/20 10:28) Acetaminophen Tablet (Tylenol Tablet) (07/29/20 10:30) Alprazolam Tablet (Xanax Tablet) (07/29/20 10:30) Calcium Carbonate Chew Tablet (Antacid C (07/29/20 10:30) Diphenhydramine Tablet (Benadryl Tablet) (07/29/20 10:30) Docusate Sodium Capsule (Colace Capsule) (07/29/20 21:00) Docusate Sodium Capsule (Colace Capsule) (07/29/20 10:30) Bisacodyl Suppository (Dulcolax Supposit (07/29/20 10:30) Lactulose Oral Solution (Enulose Oral So (07/29/20 10:30) Na Phos/Na Biphos Enema (Fleet Enema Erlin (07/29/20 10:30) Guaifenesin/Codeine Syrup (Robitussin Ac (07/29/20 10:30) Loperamide Tablet (Imodium Tablet) (07/29/20 10:30) Enoxaparin Injection (Lovenox Injection) (07/29/20 10:30) Melatonin Tablet (Melatonin Tablet) (07/29/20 10:30) Polyethylene Glycol Powder Pkt (Miralax (07/29/20 21:00) Ondansetron Oral Dissolve Tab (Zofran (07/29/20 10:30) Senna S Tablet (Senokot S Tablet) (07/29/20 21:00) Initiate Admission Nursing Pro .admission (07/29/20 10:28) Admission Arrival Bed Request (07/29/20 11:52) Patient Visit (07/29/20 ) Pt Eval Moderate Complexity (07/29/20 ) Functional Activities, Ea 15 (07/29/20 ) Patient Visit (07/29/20 ) Exercise Therap, Ea 15 Min (07/29/20 ) Functional Activities, Ea 15 (07/29/20 ) Cyclobenzaprine Tablet (Flexeril Tablet) (07/29/20 17:15) Furosemide Tablet (Lasix Tablet) (07/30/20 09:00) Levothyroxine Tablet (Synthroid Tablet) (07/30/20 09:00) Lisinopril Tablet (Zestril Tablet) (07/30/20 09:00) Metoprolol Tartrate (Ir) Tab (Lopressor (07/29/20 21:00) Consult Urology (07/30/20 11:10) Iron Test (Fe) (07/30/20 11:10) Acetaminophen Tablet/Caplet (Tylenol T (07/30/20 12:00) Bupropion Sr 12 Hr Tablet (Wellbutrin Sr (07/30/20 21:00) Docusate Sodium Capsule (Colace Capsule) (07/30/20 21:00) Ibuprofen Tablet (Motrin Tablet) (07/30/20 12:00) Lidocaine 4% Patch (Salonpas 4% Patch) (07/31/20 09:00) Metoprolol Tartrate (Ir) Tab (Lopressor (07/30/20 21:00) Tramadol Tablet (Ultram Tablet) (07/30/20 12:00) Fluticasone Nasal [place] (Flonase Nasal S (07/30/20 12:54) Guaifenesin/Dm Syrup (Robitussin Dm Syru (07/30/20 13:00) Albuterol Pre-Mix Nebs (Rt) (Proventil (07/30/20 13:00) Pantoprazole Tablet (Protonix Tablet) (07/31/20 09:00) Imipramine Tablet (Tofranil Tablet) (07/30/20 21:00) Patch Removal (Patch Removal) (07/30/20 21:00) Patient Visit (07/30/20 ) Functional Activities, Ea 15 (07/30/20 ) Patient Visit (07/30/20 ) Functional Activities, Ea 15 (07/30/20 ) Wheelchair Mgmt/Propulsn 15min (07/30/20 ) Patient Visit (07/30/20 ) Speech Sound Lang Comp (07/30/20 ) Rehab Nursing Orders: Ongoing Assess. of Cognitive Status, Ongoing Assess. of Function Status, Bladder Management, Bladder Scan, Bladder Training, Bowel Management, Bowel Training, Disease Management & Educaiton, DVT Prophylaxis, Fall Prevention, Fluid/Electrolyte/Nutrition Mgmt, Infection Prevention, Medication Management & Education, Management of Risks & Complications, Management of Skin Intergrity, Nutrition Management, Pain Management, Patient/Family Support, Safety Management Intensity of Therapy to be met Patient to be seen: Min.3h per day/5 of 7d PT IPOC Problem List: Activity Tolerance, Functional Strength, Balance, Transfer Treatment Plan: Continue Plan of Care Bed Mobility, Education, Functional Activity Sandra, Functional Strength, Group Therapy, Gait, Safety, Therapeutic Exercise, Transfers Treatment Duration: Aug 19, 2020 Frequency: At least 5 of 7 days/Wk (IRF) Estimated Hrs Per Day: 1.5 hours per day OT IPOC Problems: Decreased Activ Tolerance, Decreased UE Strength, Dependent Transfers, Impaired Funct Balance, Impaired I ADL's, Impaired Self-Care Skills OT Treatment, Training and Edu: Yes Plan of Care: ADL Retraining, Functional Mobility, UE Funct Exercise/Act Treatment Duration: Aug 12, 2020 Frequency: At least 5 of 7 days/Wk (IRF) Estimated Hrs Per Day: 1.[address] IPOC Speech Therapy Treatment Plan: Modify Plan, See Comments Treatment Duration: Jul 30, 2020 Frequency: Modified Program (IRF) Estimated Hrs Per Day: Other Methodologist/Case Mgmt Methodologist/Case Managemen: Discharge Planning Dietitian/Umbrella Repairer Dietitian/Umbrella Repairer to monitor nutritional status and make changes and/or recommendations as needed and work with speech pathology on dietary upgrades as the occur. Physician IPOC Medical Issues being managed closely and that require the 24 hour availability of a physician: Patient s/p 20 days course for MSSA bacteremia and Type 2 SD will need close monitoring for decompensation while recovering in rehab Medical Issues: Bowel/Bladder Function, DVT Prophylaxis, Falls Precautions, Fluid/Electrolyte/Nutrition Balance, Infection Protection, Pain Management Brief Synthesis of Preadmission Screen, Post-Admission Evaluation, and Therapy Evaluations: PT OT will focus on stretching back and legs and enable her to regain ADL function in order to return home with family. Medical Prognosis: Good Anticipated Length of Stay: 10 days KRYSTIAN LLANES DO Jul 30, 2020 11:10
[2020-07-30] MEDS ORDERED: IBUPROFEN 600 MG (MOTRIN) TAB PO PRN (12:00)
[2020-07-30] MEDS ORDERED: ACETAMINOPHEN 325 MG TABLET PO PRN (12:00)
--- NOTE | 2020-07-30 12:00 | Occupational Ther Daily Note ---
OT Current Status-Daily Note Subjective Pt alert sitting in recliner when OT entered. Pt agreed to therapy. No c/o pain reported. Mental Status/Objective Patient Orientation: Person, Place, Time, Situation ADL-Treatment Co-treat with PT from [id number] (60 mins) 2 skilled clinicians required due to decrease in LE/UE strength, increased pain with mobility and skilled instruction for pain control and modifications. PT focusing on transfers, bed mobility, and gait while OT is focusing on functional transfers/bed mobility and ADLs. Pt completed sponge bath while seated in recliner. After set up of items, pt was able to cleanse upper arms, chest, and abdomen. Assisted with cleansing buttocks (assist x2 for standing and cleansing), upper legs, and lower legs. Pt doffed/donned upper body dressing independently after set up. Pt requested to keep pants since she had just put them on this am. Assisted with hiking brief/pants over hips. When doffing GERARDO hose, noticed skin abrasions on B LE. CHEN wrapped B LE with KRISTEN wraps to decrease edema. Pt requires assistance to don/doff socks. Educated pt on sock aide to don socks, pt able to demonstrate understanding. Pt requires lift chair for sit-stand with assist x2 for safety. Pt then ambulated to bathroom using FWW with CGA. BSC placed over toilet to increase height. Assist x1 with standing while assist x1 to manipulate clothing and cleansing. Pt stood at sink to cleanse hands and complete oral care with CGA. Will introduce more AE for lower body dressing. After session, pt sitting in recliner with call light/phone in reach. All needs met in room. Therapy Code Descriptions/Definitions Functional [place] Measure: 0=Not Assessed/NA 4=Minimal Assistance 1=Total Assistance 5=Supervision or Setup 2=Maximal Assistance 6=Modified [place] 3=Moderate Assistance 7=Complete IndependenceSCALE: Activities may be completed with or without assistive devices. 4-Nxnbmrnyjw-lyijmxp completes the activity by him/herself with no assistance from a helper. 5-Set-up or Clean-up Assistance-helper sets up or cleans up; patient completes activity. [place] assists only prior to or following the activity. 4-Supervision or Touching Assistance-helper provides verbal cues and/or touching/steadying and/or contact guard assistance as patient completes activity. Assistance may be provided throughout the activity or intermittently. 3-Partial/Moderate Assistance-helper does LESS THAN HALF the effort. [place] lifts, holds or supports trunk or limbs, but provides less than half the effort. 2-Substantial/Maximal Assistance-helper does MORE THAN HALF the effort. [place] lifts or holds trunk or limbs and provides more than half the effort. 0-Nioscjuac-uipena does ALL the effort. Patient does none of the effort to complete the activity. Or, the assistance of 2 or more helpers is required for the patient to complete the activity. If activity was not attempted, code reason: 7-Patient Refused. 9-Not Applicable-not attempted and the patient did not perform the activity before the current illness, exacerbation or injury. 10-Not Attempted due to Environmental Limitations-(lack of equipment, weather restraints, etc.). 88-Not Attempted due to Medical Conditions or Safety Concerns. Eating (QC): 6 (Using clinical judgement, pt able to complete own meal set up and use regular utensils to eat.) Oral Hygiene (QC): 4 Bathing Location: L Arm, R Arm, L Upper Leg, R Upper Leg, Chest, Abdomen Shower/Bathe Self (QC): 1 (Assist x2 to cleanse buttocks) Upper Body Dressing (QC): 5 Lower Body Dressing (QC): 1 (Assist x2 to stand and to manipulate clothing.) On/Off Footwear: 2 Toileting Hygiene (QC): 1 Toilet Transfer (QC): 4 OT Short Term Goals Short Term Goals Time Frame: Aug 05, 2020 Eatin Oral hygiene: 5 Toileting hygiene: 3 Shower/bathe self: 3 Upper body dressin Lower body dressin Putting on/taking off footwear: 4 OT Emergency Medicine Physician Assistant Goals Emergency Medicine Physician Assistant Goals Time Frame: Aug 12, 2020 Eating (QC): 6 Oral Hygiene (QC): 6 Toileting Hygiene (QC): 6 Shower/Bathe Self (QC): 4 Upper Body Dressing (QC): 6 Lower Body Dressing (QC): 6 On/Off Footwear (QC): 6 Additional Goals: 1-Demonstrate ADL Tasks, 2-Verbalize Understanding, 3- ImproveStrength/Sandra 1=Demonstrate adherence to instructed precautions during ADL tasks. 2=Patient will verbalize/demonstrate understanding of assistive devices/modifications for ADL. 3=Patient will improve strength/tolerance for activity to enable patient to perform ADL's. OT Education/Plan Problem List/Assessment Assessment: Decreased Activ Tolerance, Decreased Safety Aware, Decreased UE Strength, Impaired Bed Mobility, Impaired Coordination, Impaired Funct Balance, Impaired I ADL's, Impaired Self-Care Skills Discharge Recommendations Plan/Recommendations: Continue POC Treatment Plan/Plan of Care Patient would benefit from OT for education, treatment and training to promote independence in ADL's, mobility, safety and/or upper extremity function for AD L's. Plan of Care: ADL Retraining, Functional Mobility, UE Funct Exercise/Act Treatment Duration: Aug 12, 2020 Frequency: At least 5 of 7 days/Wk (IRF) Estimated Hrs Per Day: 1.5 hours per day Agreement: Yes Rehab Potential: Good Time/GCodes Start Time: 10:15 Stop Time: 11:15 Total Time Billed (hr/min): 60 Billed Treatment Time 1 visit-ADL 4 (60 min) co-treat with PT 60 min VENTURA MILES Jul 30, 2020 12:00
--- NOTE | 2020-07-30 12:14 | Physical Therapy Daily Note ---
PT Daily Note-Current Subjective Pt sitting in recliner upon arrival. Pt agrees to PT/OT co-treat. Pain Numeric Pain Scale: 6 Location: Lower Location Body Site: Back Pain Description: Ache Mental Status Patient Orientation: Person, Place, Situation Transfers SCALE: Activities may be completed with or without assistive devices. 3-Cqlwyasqkx-uasspur completes the activity by him/herself with no assistance from a helper. 5-Set-up or Clean-up Assistance-helper sets up or cleans up; patient completes activity. [place] assists only prior to or following the activity. 4-Supervision or Touching Assistance-helper provides verbal cues and/or touching/steadying and/or contact guard assistance as patient completes activity. Assistance may be provided throughout the activity or intermittently. 3-Partial/Moderate Assistance-helper does LESS THAN HALF the effort. [place] lifts, holds or supports trunk or limbs, but provides less than half the effort. 2-Substantial/Maximal Assistance-helper does MORE THAN HALF the effort. [place] lifts or holds trunk or limbs and provides more than half the effort. 6-Hbxydmglb-qpuzsn does ALL the effort. Patient does none of the effort to complete the activity. Or, the assistance of 2 or more helpers is required for the patient to complete the activity. If activity was not attempted, code reason: 7-Patient Refused. 9-Not Applicable-not attempted and the patient did not perform the activity before the current illness, exacerbation or injury. 10-Not Attempted due to Environmental Limitations-(lack of equipment, weather restraints, etc.). 88-Not Attempted due to Medical Conditions or Safety Concerns. Sit to Lying (QC): 2 Sit to Stand (QC): 2 Chair/Nwd-xm-Qthwi Xfer(QC): 2 Weight Bearing Full Weight Bearing Full Weight Bearing Wheelchair Training Does the Pt Use a Wheelchair?: No Treatments Co-treat with PT from [id number] (60 mins) 2 skilled clinicians required due to decrease in LE/UE strength, increased pain with mobility and skilled instruction for pain control and modifications. PT focusing on transfers, bed mobility, and gait while OT is focusing on functional transfers/bed mobility and ADLs. Pt completed sponge bath while seated in recliner. After set up of items, pt was able to cleanse upper arms, chest, and abdomen. Assisted with cleansing buttocks (assist x2 for standing and cleansing), upper legs, and lower legs. Pt doffed/donned upper body dressing independently after set up. Pt requested to keep pants since she had just put them on this am. Assisted with hiking brief/pants over hips. When doffing GERARDO hose, noticed skin abrasions on B LE. CHEN wrapped B LE with KRISTEN wraps to decrease edema. Pt requires assistance to don/doff socks. Educated pt on sock aide to don socks, pt able to demonstrate understanding. Pt requires lift chair for sit-stand with assist x2 for safety. Pt then ambulated to bathroom using FWW with CGA. BSC placed over toilet to increase height. Assist x1 with standing while assist x1 to manipulate clothing and cleansing. Pt stood at sink to cleanse hands and complete oral care with CGA. Will introduce more AE for lower body dressing. After session, pt sitting in recliner with call light/phone in reach. All needs met in room. Assessment Current Status: Fair Progress Pt fatigues easily and needs frequent RB. Pt reports pain with increased movement. PT Short Term Goals Short Term Goals Time Frame: Aug 05, 2020 Lying to sitting on side of be: 4 Sit to stand: 4 Walk 50 feet with two turns: 4 Walk 150 feet: 4 1 step (curb): 3 PT Computer Numerical Control Machinist Goals Group Home Goals PT Group Home Goals Time Frame: Aug 19, 2020 Roll Left & Right (QC): 6 Sit to Lying (QC): 6 Lying-Sitting on Side/Bed(QC): 6 Sit to Stand (QC): 6 Chair/Alt-pe-Vtheg Xfer(QC): 6 Toilet Transfer (QC): 6 Car Transfer (QC): 6 Does the Patient Walk: Yes Walk 10 feet (QC): 6 Walk 50ft with 2 Turns (QC): 6 Walk 150 ft (QC): 6 Walking 10ft on Uneven Surface: 5 1 Step (curb) (QC): 6 4 Steps (QC): 6 12 Steps (QC): 5 Picking up an Object (QC): 5 Does the Pt use WC or Scooter?: No Wheel 50 feet with 2 turns (QC: 9 Wheel 150 feet: 9 PT Plan Problem List Problem List: Activity Tolerance, Functional Strength, Safety, Balance, Gait, Transfer, Bed Mobility Treatment/Plan Treatment Plan: Continue Plan of Care Treatment Plan: Bed Mobility, Education, Functional Activity Sandra, Functional Strength, Group Therapy, Gait, Safety, Therapeutic Exercise, Transfers Treatment Duration: Aug 19, 2020 Frequency: At least 5 of 7 days/Wk (IRF) Estimated Hrs Per Day: 1.5 hours per day Patient and/or Family Agrees t: Yes Safety Risks/Education Patient Education: Transfer Techniques, Correct Positioning, Safety Issues Teaching Recipient: Patient Teaching Methods: Discussion Response to Teaching: Verbalize Understanding Time/GCodes Time In: 1015 Time Out: 1115 Total Billed Treatment Time: 60 Total Billed Treatment 1, FA x4 (60m) JASMEET FLAHERTY PELT GRADER Jul 30, 2020 12:14
[2020-07-30] MEDS ORDERED: FLUTICASONE NASAL SPRAY (FLONASE) 16 GM BTL NS PRN (12:54)
[2020-07-30] MEDS ORDERED: RT-ALBUTEROL SULF 2.5 MG/3 ML PRE-MIX VIAL INH PRN (13:00)
[2020-07-30] MEDS ORDERED: guaiFENesin/DM (ROBITUSSIN DM) 10 ML UDC PO PRN (13:00)
--- NOTE | 2020-07-30 14:10 | Occupational Ther Daily Note ---
OT Current Status-Daily Note Subjective Pt laying in bed. Pt stated that she just woke up from nap. No c/o pain reported. Mental Status/Objective Patient Orientation: Person, Unable to Assess, Time, Situation ADL-Treatment Co-treat with PT from [id number] (30 mins) 2 skilled clinicians required due to decrease in LE/UE strength, increased pain with mobility and skilled instruction for pain control and modifications. PT focusing on transfers, bed mobility, and gait while OT is focusing on functional transfers/bed mobility and ADLs. Pt stated that she needed to use the restroom, but doesn't feel like she can make it to the toilet. Bed cota was placed under pt with assist to hold pt to the R while CHEN placed bed cota. Assist x2 for cleansing, one for holding pt as she rolled to L side and other assisting with cleansing. Pt then required max encouragement to transfer from raised HOB to EOB, assist x2. Pt then SPT from EOB to w/c with CGA. Pt taken to gym. Therapy Code Descriptions/Definitions Functional Brown Measure: 0=Not Assessed/NA 4=Minimal Assistance 1=Total Assistance 5=Supervision or Setup 2=Maximal Assistance 6=Modified Brown 3=Moderate Assistance 7=Complete IndependenceSCALE: Activities may be completed with or without assistive devices. 1-Imysdbwzqr-mremmyy completes the activity by him/herself with no assistance from a helper. 5-Set-up or Clean-up Assistance-helper sets up or cleans up; patient completes activity. [place] assists only prior to or following the activity. 4-Supervision or Touching Assistance-helper provides verbal cues and/or touching/steadying and/or contact guard assistance as patient completes activity. Assistance may be provided throughout the activity or intermittently. 3-Partial/Moderate Assistance-helper does LESS THAN HALF the effort. [place] lifts, holds or supports trunk or limbs, but provides less than half the effort. 2-Substantial/Maximal Assistance-helper does MORE THAN HALF the effort. [place] lifts or holds trunk or limbs and provides more than half the effort. 3-Qpvwpdotu-fntywe does ALL the effort. Patient does none of the effort to complete the activity. Or, the assistance of 2 or more helpers is required for the patient to complete the activity. If activity was not attempted, code reason: 7-Patient Refused. 9-Not Applicable-not attempted and the patient did not perform the activity before the current illness, exacerbation or injury. 10-Not Attempted due to Environmental Limitations-(lack of equipment, weather restraints, etc.). 88-Not Attempted due to Medical Conditions or Safety Concerns. Other Treatment Once in gym, pt completed 10 reps of reaching object and taking it across arch while standing using FWW with CGA for functional dyanmic balance and strengthing B UE for daily task. Pt taken back to room. Sit-stand from w/c to FWW with CGA. Ambulated to recliner. After therapy, call light/phone in reach. All needs met. OT Short Term Goals Short Term Goals Time Frame: Aug 05, 2020 Eatin Oral hygiene: 5 Toileting hygiene: 3 Shower/bathe self: 3 Upper body dressin Lower body dressin Putting on/taking off footwear: 4 OT Chcf Goals Career Development Specialist Goals Time Frame: Aug 12, 2020 Eating (QC): 6 Oral Hygiene (QC): 6 Toileting Hygiene (QC): 6 Shower/Bathe Self (QC): 4 Upper Body Dressing (QC): 6 Lower Body Dressing (QC): 6 On/Off Footwear (QC): 6 Additional Goals: 1-Demonstrate ADL Tasks, 2-Verbalize Understanding, 3-ImproveStrength/Sandra 1=Demonstrate adherence to instructed precautions during ADL tasks. 2=Patient will verbalize/demonstrate understanding of assistive devices/modifications for ADL. 3=Patient will improve strength/tolerance for activity to enable patient to perform ADL's. OT Education/Plan Problem List/Assessment Assessment: Decreased Activ Tolerance, Decreased UE Strength, Edema, Impaired Coordination, Impaired Funct Balance, Impaired I ADL's, Impaired Self-Care Skills Discharge Recommendations Plan/Recommendations: Continue POC Treatment Plan/Plan of Care Patient would benefit from OT for education, treatment and training to promote independence in ADL's, mobility, safety and/or upper extremity function for ADL's. Plan of Care: ADL Retraining, Functional Mobility, UE Funct Exercise/Act Treatment Duration: Aug 12, 2020 Frequency: At least 5 of 7 days/Wk (IRF) Estimated Hrs Per Day: 1.5 hours per day Agreement: Yes Rehab Potential: Good Time/GCodes Start Time: 13:30 Stop Time: 14:00 Total Time Billed (hr/min): 30 Billed Treatment Time 1 visit-ADL (22 mins) EX (8 min)Co treat with PT:[id number] (30 mins) VENTURA IMLES Jul 30, 2020 14:10
--- NOTE | 2020-07-30 14:12 | ST Cognitive Linguistic Eval ---
Speech Evaluation-General Medical Diagnosis pneumonia; debility Onset Date: Jul 29, 2020 Therapy Diagnosis Therapy Diagnosis: Cognitive-communication Referral Referring Physician: Dr. Miles Medical History Reviewed History: Yes Social History Current Living Status: Spouse Speech PLF-Current Status Prior Level of Function Patient lives in the home with her . 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 Subjective Patient was pleasant and cooperative with the cognitive assessment. Language Eval: Auditory Comprehends Simple Yes/No Ques: Functional Indent/Objects Multiple [place]: Functional Ident/Pics in Multiple [place]: Functional Follows 1-Step Commands: Functional Follows Complex Directions: Functional Follows General Conversations: Functional Language Eval: Verbal Language Completes Spontaneous Greeting: Functional Produces Auto, Serial Info: Functional Imitates Simple Words/Phrases: Functional Word Finding: Functional Requests Basic Needs: Functional States Basic Personal Info: Functional Expresses Complex Ideas: Functional Objective Cognitive Domain Attention: WNL Memory: WNL Problem Solving: Functional Executive Functions: WNL Visuospatial Skills: WNL Composite Severity Rating: WNL Clock Drawing Severity Rating: WNL Objective Formal/Standardized Tests [facility] Mental Status ([facility]) Results 29/30, within normal range of function Oral Motor/Speech Production Within Normal Limits Impression Patient is a pleasant 59 y/o female who was admitted to the ARU due to debility. Patient was given the UMS with a score of 29/30 obtained. This score is within the normal range of function and does not indicate further ST services. Speech Patient Assess Expression of Ideas/Wants: Expression (4) Understanding Verbal Content: Understands (4) Brief Interview-Mental Status: Yes Repetition of Three Words: Three (3) Temporal Orientation: Year: Correct (3) Temporal Orientation: Month: Accurate within 5 days(2) Temporal Orientation: Day: Correct (1) Recall : Wear to say "Sock": Yes, no cue required (2) Recall : Color: Yes, after cueing (1) Recall : Bed: Yes, no cue required (2) Memory/Recall Ability: Current season, Location of own room Speech-Plan Patient/Family Goals Patient/Family Goals: Patient plans on returning to her home with friends and family for support as needed. Treatment Plan Speech Therapy Treatment Plan: Discontinue ST Treatment Duration: Jul 30, 2020 Frequency: 1 time per week Estimated Hrs Per Day: .25 hour per day Rehab Potential: Good Barriers to Learning: None identified Pt/Family Agrees to Plan: Yes Safety Risks/Education Teaching Recipient: Patient Teaching Methods: Discussion Response to Teaching: Verbalize Understanding Education Topics Provided: Safety within her room, communication of wants/needs Time Speech Therapy Time In: 09:15 Speech Therapy Time Out: 09:30 Total Billed Time: 15 Billed Treatment Time 1, MYKEL Winters Jul 30, 2020 14:12
--- NOTE | 2020-07-30 15:07 | NUR ---
Initial Spiritual Care visit made by CORNELIUS Mckeon.
--- NOTE | 2020-07-30 15:13 | NUR ---
"RD ASSESSMENT PMHx: hypercholesterolemia; hypothyroidism; HTN PT INTERACTION: Pt was awake and pleasant during nutrition assessment. Pt states current appetite is not good, and has been this way for the last 21 days. Note avg PO intake 100% x2meal, per chart review. Pt states following a regular diet at home, and has no issues with chewing/swallowing food. Pt states recent issues with nausea, but not vomiting, constipation, or diarrhea, and that her last BM was 07/30. Note pt currently on bowel regimen of colace BID; senna BID; and miralax BID, per chart review. Pt states recent 30# wt loss x21d. Note unable to determine recent wt hx, per chart review. Upon visual assessment, pt appears to very well nourished with no visible signs of muscle/fat wasting and a BMI of 47.6 (Obese class III for age). Given current PO intake, no nutrition needs at this time (NO-1.1) ABNORMAL NUTRITION-RELATED LAB VALUES LOW: Ca 8.3; alb 2.9 HIGH: Est. kcal needs: 1375 kcal | 25 kcal/kg IBW, based on IBW of 54.5 kg (120#) Est. Pro needs: 65 g Pro | 1.2 g Pro/kg IBW PES STATEMENT: INTERVENTION: Continue with current diet order of Regular diet. Will continue to follow and reassess as pt needs, intake, and status change. MONITOR/EVALUATE: PO Intake; Plan of Care; Hydration Status; Weight Status; Lab Values Sage Castro, MS, RD, LD"
--- NOTE | 2020-07-30 15:20 | CONSULTATION REPORT ---
DATE OF SERVICE: 07/30/2020 ATTENDING PHYSICIAN: Janessa Miles DO SUMMARY: After reviewing the patient's record and interviewing her, this is a 59-year-old lady with multiple medical problems and was transferred from [facility] and was complaining of nocturnal enuresis. She does okay during the daytime. She denies that on a regular basis at home. It has been a nuisance to her. She denies any other voiding symptoms. No UTIs. IMPRESSION: Nocturnal enuresis, new onset. PLAN: We will start her on a low dose imipramine 25 mg at bedtime and we will watch her for any interaction, especially with TRAMADOL. The plan was agreed upon by Dr. Miles. Job ID: [id number] DocumentID: [id number] Dictated Date: 07/30/2020 12:21:45 Diet Consultant Date: 07/30/2020 13:25:53 Dictated By: SHASHANK JACOME MD MTDD
--- NOTE | 2020-07-30 15:47 | Physical Therapy Daily Note ---
PT Daily Note-Current Subjective Pt laying Supine in bed upon arrival. Pt agrees to PT/OT co-treat. Mental Status Patient Orientation: Person, Place, Situation Transfers SCALE: Activities may be completed with or without assistive devices. 3-Mwryaqwouo-rzosckz completes the activity by him/herself with no assistance from a helper. 5-Set-up or Clean-up Assistance-helper sets up or cleans up; patient completes activity. [place] assists only prior to or following the activity. 4-Supervision or Touching Assistance-helper provides verbal cues and/or touching/steadying and/or contact guard assistance as patient completes activity. Assistance may be provided throughout the activity or intermittently. 3-Partial/Moderate Assistance-helper does LESS THAN HALF the effort. [place] lif ts, holds or supports trunk or limbs, but provides less than half the effort. 2-Substantial/Maximal Assistance-helper does MORE THAN HALF the effort. [place] lifts or holds trunk or limbs and provides more than half the effort. 0-Rpayayeou-tbxfgm does ALL the effort. Patient does none of the effort to complete the activity. Or, the assistance of 2 or more helpers is required for the patient to complete the activity. If activity was not attempted, code reason: 7-Patient Refused. 9-Not Applicable-not attempted and the patient did not perform the activity before the current illness, exacerbation or injury. 10-Not Attempted due to Environmental Limitations-(lack of equipment, weather restraints, etc.). 88-Not Attempted due to Medical Conditions or Safety Concerns. Roll Left & Right (QC): 3 Lying to Sitting/Side of Bed(Q: 2 Sit to Stand (QC): 3 Chair/Cel-mw-Yeald Xfer(QC): 2 Weight Bearing Full Weight Bearing Full Weight Bearing Wheelchair Training Does the Pt Use a Wheelchair?: Yes Type of Wheelchair: Manual Treatments Co-treat with PT from [id number] (30 mins) 2 skilled clinicians required due to decrease in LE/UE strength, increased pain with mobility and skilled instruction for pain control and modifications. PT focusing on transfers, bed mobility, and gait while OT is focusing on functional transfers/bed mobility and ADLs. Pt stated that she needed to use the restroom, but doesn't feel like she can make it to the toilet. Bed cota was placed under pt with assist to hold pt to the R while CHEN placed bed cota. Assist x2 for cleansing, one for holding pt as she rolled to L side and other assisting with cleansing. Pt then required max encouragement to transfer from raised HOB to EOB, assist x2. Pt then SPT from EOB to w/c with CGA. Pt taken to gym. Assessment Current Status: Fair Progress Pt demonstrates increased weakness in afternoon sessions, fatigues quicker. PT Short Term Goals Short Term Goals Time Frame: Aug 05, 2020 Lying to sitting on side of be: 4 Sit to stand: 4 Walk 50 feet with two turns: 4 Walk 150 feet: 4 1 step (curb): 3 PT Alf Goals Alf Goals PT Alf Goals Time Frame: Aug 19, 2020 Roll Left & Right (QC): 6 Sit to Lying (QC): 6 Lying-Sitting on Side/Bed(QC): 6 Sit to Stand (QC): 6 Chair/Ria-wd-Etkzj Xfer(QC): 6 Toilet Transfer (QC): 6 Car Transfer (QC): 6 Does the Patient Walk: Yes Walk 10 feet (QC): 6 Walk 50ft with 2 Turns (QC): 6 Walk 150 ft (QC): 6 Walking 10ft on Uneven Surface: 5 1 Step (curb) (QC): 6 4 Steps (QC): 6 12 Steps (QC): 5 Picking up an Object (QC): 5 Does the Pt use WC or Scooter?: No Wheel 50 feet with 2 turns (QC: 9 Wheel 150 feet: 9 PT Plan Problem List Problem List: Activity Tolerance, Functional Strength, Safety, Balance, Gait, Transfer, Bed Mobility Treatment/Plan Treatment Plan: Continue Plan of Care Treatment Plan: Bed Mobility, Education, Functional Activity Sandra, Functional Strength, Group Therapy, Gait, Safety, Therapeutic Exercise, Transfers Treatment Duration: Aug 19, 2020 Frequency: At least 5 of 7 days/Wk (IRF) Estimated Hrs Per Day: 1.5 hours per day Patient and/or Family Agrees t: Yes Safety Risks/Education Patient Education: Transfer Techniques, Correct Positioning, W/C Management, Safety Issues Teaching Recipient: Patient Teaching Methods: Discussion Response to Teaching: Verbalize Understanding Time/GCodes Time In: 1330 Time Out: 1400 Total Billed Treatment Time: 30 Total Billed Treatment 1, FA (20m) & WC (10m) JASMEET FLAHERTY CUP TRIMMING MACHINE OPERATOR Jul 30, 2020 15:47
[2020-07-30 16:42] VITALS: BP 142/66
[2020-07-30] MEDS: CYCLOBENZAPRINE 10 MG (FLEXERIL) TAB PO PRN (19:48)
[2020-07-30] MEDS: buPROPion SR 100 MG (WELLBUTRIN SR) TAB PO SCH (21:42)
[2020-07-30] MEDS: IMIPRAMINE 25 MG (TOFRANIL) TAB PO SCH (21:42)
[2020-07-30] MEDS: MELATONIN 3 MG TABLET PO PRN (21:43)
[2020-07-30] MEDS: LIDOCAINE PATCH REMOVAL TP SCH (21:43)
[2020-07-31 05:54] VITALS: BP 140/72
[2020-07-31 08:00] VITALS: BP 128/70
--- NOTE | 2020-07-31 08:49 | Physical Therapy Daily Note ---
PT Daily Note-Current Subjective Pt. in bed, agrees to Rx. Pt. shares her recent medical crisis and states she feels she is making progress already, c/o incont of urine and no appetite. Pt states she has pain in her knees and this was previous to this as well Pain Numeric Pain Scale: 6 Location: Right (bilat) Location Body Site: Knee Pain Description: Ache Appearance pt. requested toileting , had BM, loose, gelatinous, and bloody, nursing called to assess Mental Status Patient Orientation: Normal For Age Transfers SCALE: Activities may be completed with or without assistive devices. 8-Zxjozqukru-sbfyakj completes the activity by him/herself with no assistance from a helper. 5-Set-up or Clean-up Assistance-helper sets up or cleans up; patient completes activity. [place] assists only prior to or following the activity. 4-Supervision or Touching Assistance-helper provides verbal cues and/or touching/steadying and/or contact guard assistance as patient completes activity. Assistance may be provided throughout the activity or intermittently. 3-Partial/Moderate Assistance-helper does LESS THAN HALF the effort. [place] lifts, holds or supports trunk or limbs, but provides less than half the effort. 2-Substantial/Maximal Assistance-helper does MORE THAN HALF the effort. [place] lifts or holds trunk or limbs and provides more than half the effort. 7-Picwighyw-gxidxw does ALL the effort. Patient does none of the effort to complete the activity. Or, the assistance of 2 or more helpers is required for the patient to complete the activity. If activity was not attempted, code reason: 7-Patient Refused. 9-Not Applicable-not attempted and the patient did not perform the activity before the current illness, exacerbation or injury. 10-Not Attempted due to Environmental Limitations-(lack of equipment, weather restraints, etc.). 88-Not Attempted due to Medical Conditions or Safety Concerns. Roll Left & Right (QC): 4 Sit to Lying (QC): 5 Sit to Stand (QC): 4 Chair/Spj-tt-Erpcs Xfer(QC): 4 Toilet Transfer (QC): 5 emphasis on sit to stand with proper use of hands and wt shift, improving Weight Bearing Full Weight Bearing Full Weight Bearing Gait Training Does the Patient Walk?: Yes Walk 10 feet (QC): 4 Walk 50 ft with 2 Turns(QC): 4 Gait Persons Needed: 1 Gait Assistive Device: FWW Exercises Supine Ex: Ankle pumps, Quad Set, Rolling, Heel Slides Supine Reps: 12 Seated Therapy Exercises: Ankle pumps, Sit to stand, Long arc quads, Hip flexion, Hip abd/add Seated Reps: 12 Treatments fatigues quickly, pain in LEs limits participation, weak LEs limiting bed mob Assessment Current Status: Good Progress PT Short Term Goals Short Term Goals Time Frame: Aug 05, 2020 Lying to sitting on side of be: 4 Sit to stand: 4 Walk 50 feet with two turns: 4 Walk 150 feet: 4 1 step (curb): 3 PT Nurse Practitioner Per Diem Goals Nurse Practitioner [place] Goals PT Nurse Practitioner Per Diem Goals Time Frame: Aug 19, 2020 Roll Left & Right (QC): 6 Sit to Lying (QC): 6 Lying-Sitting on Side/Bed(QC): 6 Sit to Stand (QC): 6 Chair/Kfb-uo-Ezoam Xfer(QC): 6 Toilet Transfer (QC): 6 Car Transfer (QC): 6 Does the Patient Walk: Yes Walk 10 feet (QC): 6 Walk 50ft with 2 Turns (QC): 6 Walk 150 ft (QC): 6 Walking 10ft on Uneven Surface: 5 1 Step (curb) (QC): 6 4 Steps (QC): 6 12 Steps (QC): 5 Picking up an Object (QC): 5 Does the Pt use WC or Scooter?: No Wheel 50 feet with 2 turns (QC: 9 Wheel 150 feet: 9 PT Plan Treatment/Plan Treatment Plan: Continue Plan of Care Treatment Plan: Bed Mobility, Education, Functional Activity Sandra, Functional Strength, Group Therapy, Gait, Safety, Therapeutic Exercise, Transfers Treatment Duration: Aug 19, 2020 Frequency: At least 5 of 7 days/Wk (IRF) Estimated Hrs Per Day: 1.5 hours per day Patient and/or Family Agrees t: Yes Safety Risks/Education Patient Education: Gait Training, Transfer Techniques, Correct Positioning, Disease Process, Safety Issues Teaching Recipient: Patient Teaching Methods: Demonstration, Discussion Response to Teaching: Verbalize Understanding, Return Demonstration, Reinforcement Needed Time/GCodes Time In: 800 Time Out: 845 Total Billed Treatment Time: 45 Total Billed Treatment 1,FA15,GT15,EX15 LUIS EDUARDO MCKEON PTA Jul 31, 2020 08:49
[2020-07-31] MEDS: PANTOPRAZOLE 20 MG TABLET (PROTONIX) PO SCH (08:54)
[2020-07-31] MEDS: LEVOTHYROXINE 125 MCG (LEVOTHROID) TABLET PO SCH (08:55)
[2020-07-31] MEDS: FUROSEMIDE 20 MG (LASIX) TAB PO SCH (08:55)
[2020-07-31] MEDS: polyethylene glycoL POWDER 17 GM (MIRALAX) PACK PO SCH ×2 (08:56→19:57)
[2020-07-31] MEDS: meTOprolol TARTRATE 50 MG (LOPRESSOR) TAB PO SCH ×2 (08:56→21:06)
[2020-07-31] MEDS: lisINopril 20 MG (PRINIVIL) TABLET PO SCH (08:56)
[2020-07-31] MEDS: buPROPion SR 100 MG (WELLBUTRIN SR) TAB PO SCH ×2 (08:56→21:06)
[2020-07-31] MEDS: ENOXAPARIN 40 MG/0.4 ML (LOVENOX) SYR SC SCH ×2 (08:58→21:06)
[2020-07-31] MEDS: LIDOCAINE 4% (SALONPAS) PATCH TP SCH (08:58)
[2020-07-31] MEDS: SENNA W/DOCUSATE (SENOKOT S) TABLET PO SCH ×2 (08:59→21:09)
[2020-07-31] MEDS: DOCUSATE SODIUM 100 MG (COLACE) CAP PO SCH ×2 (08:59→21:09)
--- NOTE | 2020-07-31 09:00 | NUR ---
MEDICATED WITH ULTRAM FOR LOW BACK PAIN. STATES FLEXERIL HELPS BACK PAIN ALSO. POOR APPETITE - STATES THAT WAY SINCE ADMITTED INTO HOSPITAL THE END OF JUNE. VENOFER TO BE STARTED TODAY. ORDER OBTAINED FOR MIDLINE. DR. LLANES AWARE OF PTC NOTING POSSIBLE BLOOD IN STOOL THIS AM.
--- NOTE | 2020-07-31 09:31 | PM&R Progress Note ---
Subjective HPI/CC On Admission Date Seen by Provider: Jul 31, 2020 Time Seen by Provider: 09:30 Subjective/Events-last exam 08/01/20: at bedside today Flexeril helps back pain Used CPAP last night BM+ No falls Feels improved Fogginess in thought process noted at times Midline placed for IV iron and she has not received iron before IV but has anemia fdc Patient settling in RIght back and leg pain improved Worse CPAP last night Dr Cabrera consulted for night time polyuria and incontinence 2+ edema lower legs still KRISTEN wraps placed due to intolerance to GERARDO hose Hgb 10.4 Iron pending Checked meds and labs Conferred with RN Reviewed therapy notes Review of Systems General: Fatigue, Malaise Neurological: Weakness Objective Exam Vital Signs Vital Signs Date Time Temp Pulse Resp B/P (MAP) Pulse Ox O2 Delivery O2 Flow Rate FiO2 08/01/20 05:12 36.4 68 20 121/58 (79) 94 Room Air Capillary Refill : Less Than 3 Seconds General Appearance: No Apparent Distress, WD/WN, Chronically ill, Obese HEENT: PERRL/EOMI, Normal ENT Inspection, Pharynx Normal Neck: Full Range of Motion, Normal Inspection, Non Tender, Supple, Carotid Bruit Respiratory: Chest Non Tender, Lungs Clear, Normal Breath Sounds, No Accessory Muscle Use, No Respiratory Distress Cardiovascular: Regular Rate, Rhythm, No Edema, No Gallop, No JVD, No Murmur, Normal Peripheral Pulses Gastrointestinal: Normal Bowel Sounds, No Organomegaly, No Pulsatile Mass, Non Tender, Soft Back: Normal Inspection, Decreased Range of Motion, Muscle Spasm, Vertebral Tenderness Extremity: Normal Capillary Refill, Normal Inspection, Normal Range of Motion, Non Tender, No Calf Tenderness, No Pedal Edema Neurologic/Psychiatric: Alert, Oriented x3, No Motor/Sensory Deficits, Normal Mood/Affect, branch maker II-XII Norm as Tested, Abnormal Gait, Motor Weakness (legs 4/5) Skin: Normal Color, Warm/Dry Lymphatic: No Adenopathy Results/Procedures Lab Patient resulted labs reviewed. FIM Transfers Therapy Code Descriptions/Definitions Functional [place] Measure: 0=Not Assessed/NA 4=Minimal Assistance 1=Total Assistance 5=Supervision or Setup 2=Maximal Assistance 6=Modified [place] 3=Moderate Assistance 7=Complete IndependenceSCALE: Activities may be completed with or without assistive devices. 5-Mebnpdhzzl-xcrwpsx completes the activity by him/herself with no assistance from a helper. 5-Set-up or Clean-up Assistance-helper sets up or cleans up; patient completes activity. [place] assists only prior to or following the activity. 4-Supervision or Touching Assistance-helper provides verbal cues and/or touching/steadying and/or contact guard assistance as patient completes activity. Assistance may be provided throughout the activity or intermittently. 3-Partial/Moderate Assistance-helper does LESS THAN HALF the effort. [place] lifts, holds or supports trunk or limbs, but provides less than half the effort. 2-Substantial/Maximal Assistance-helper does MORE THAN HALF the effort. [place] lifts or holds trunk or limbs and provides more than half the effort. 0-Toxlpswbs-kgysji does ALL the effort. Patient does none of the effort to complete the activity. Or, the assistance of 2 or more helpers is required for the patient to complete the activity. If activity was not attempted, code reason: 7-Patient Refused. 9-Not Applicable-not attempted and the patient did not perform the activity before the current illness, exacerbation or injury. 10-Not Attempted due to Environmental Limitations-(lack of equipment, weather restraints, etc.). 88-Not Attempted due to Medical Conditions or Safety Concerns. Roll Left to Right (QC): 4 Sit to Lying (QC): 5 Sit to Stand (QC): 4 Chair/Jhd-ot-Qbvoa Xfer(QC): 4 Car Transfer (QC): 3 Gait Training Does the Patient Walk?: Yes Walk 10 feet (QC): 4 Walk 50 ft with 2 Turns(QC): 4 Walk 150 ft (QC): 88 (unable/unsafe to attempt to walk further than 50 ft. ) Walking 10ft/uneven surface-QC: 3 (min assist for balance and safety. ) Gait Persons Needed: 1 Gait Assistive Device: FWW Wheelchair Training Does the Pt Use a Wheelchair?: Yes Wheel 50 ft with 2 turns (QC): 9 Wheel 150 ft (QC): 9 Type of Wheelchair: Manual Stair Training 1 Step (curb) (QC): 88 (approached step but pt unable to safely attempt; fall risk noted. ) 4 Steps (QC): 88 12 Steps (QC): 88 Balance Picking up an Object (QC): 88 (functional weakness and balance deficit limit safety to attempt this task) ADL-Treatment Eating (QC): 6 (Using clinical judgement, pt able to complete own meal set up and use regular utensils to eat.) Oral Hygiene (QC): 4 Bathing Location: L Arm, R Arm, L Upper Leg, R Upper Leg, Chest, Abdomen Shower/Bathe Self (QC): 1 (Assist x2 to cleanse buttocks) Upper Body Dressing (QC): 5 Lower Body Dressing (QC): 1 (Assist x2 to stand and to manipulate clothing.) On/Off Footwear (QC): 2 Toileting Hygiene (QC): 1 Toilet Transfer (QC): 4 Assessment/Plan Assessment and Plan Assess & Plan/Chief Complaint Assessment: Severe back pain with debility after 20 days hospital course at [facility] MSSA bacteremia HTN HLP Thrombocytosis Obesity GRUPO on CPAP Plan: Monitor labs Check iron level IRF protocol Fall risk 08/01/20: IV iron infusion ordered after midline Pain control IRF protocol (1) Debility (2) Back pain (3) Type 2 myocardial infarction (4) GRUPO on CPAP (5) Obesity, morbid, BMI 40.0-49.9 (6) Edema (7) MSSA (methicillin susceptible Staphylococcus aureus) septicemia KRYSTIAN LLANES DO Jul 31, 2020 09:31
--- NOTE | 2020-07-31 09:54 | Progress Note - Urology ---
Progress Note-Urology Progress Notes/Assess & Plan Progress/Assessment & Plan DOING MUCH BETTER. TOLERATES IMIPRAMINE WELL Final Diagnosis NOCTURNAL ENURESIS SHASHANK JACOME MD Jul 31, 2020 09:54
--- NOTE | 2020-07-31 09:59 | Occupational Ther Daily Note ---
OT Current Status-Daily Note Subjective Pt laying in bed when OT entered. Nursing in room. Pt agreed to showering. No c/o pain reported. Mental Status/Objective Patient Orientation: Person, Place, Time, Situation ADL-Treatment Pt supine to EOB with max A. Pt transferred from EOB to [facility] with raised bed, CGA for standing. Pt ambulated to shower bench using [facility] with CGA. Once at shower bench, pt sit-stand to doff brief using grab rails, CHEN assisted threading down hips. Pt was able to pull B feet out of brief. Pt required shower bench, hand rails, long handled sponge, hand held shower, and supervision for safety to complete shower. Pt was able to cleanse upper arms, upper/lower legs, chest, abdomen, and emilia area. After shower, pt SPT from shower bench to w/ with CGA. Pt then donned brief using dressing stick, after set up. Pt was able to thread R leg into pants, required assist from CHEN to hold open L leg pant so pt could lift foot into hole. Pt able to thread pants/briefs to knees. Sit-stand from w/ using grab rails with CGA, pt then was able to hike briefs/pants over hips using both B UE. After set up, pt able to don bra and shirt by self. Pt then wheeled to sink and completed oral hygiene while seated at sink. Pt then wheeled to room. CHEN wrapped B LE with KRISTEN wraps to decrease edema. Edema has decreased from yesterday. After set up, pt able to don socks using sock aid. Pt then sit- stand from w/c to [facility] with CGA [facility]. After therapy, pt sitting in recliner. Call light/phone in reach. All needs met. Therapy Code Descriptions/Definitions Functional [place] Measure: 0=Not Assessed/NA 4=Minimal Assistance 1=Total Assistance 5=Supervision or Setup 2=Maximal Assistance 6=Modified [place] 3=Moderate Assistance 7=Complete IndependenceSCALE: Activities may be completed with or without assistive devices. 7-Qvdfgrvadg-tplqhws completes the activity by him/herself with no assistance from a helper. 5-Set-up or Clean-up Assistance-helper sets up or cleans up; patient completes activity. [place] assists only prior to or following the activity. 4-Supervision or Touching Assistance-helper provides verbal cues and/or touching/steadying and/or contact guard assistance as patient completes activity. Assistance may be provided throughout the activity or intermittently. 3-Partial/Moderate Assistance-helper does LESS THAN HALF the effort. [place] lifts, holds or supports trunk or limbs, but provides less than half the effort. 2-Substantial/Maximal Assistance-helper does MORE THAN HALF the effort. [place] lifts or holds trunk or limbs and provides more than half the effort. 5-Bdpfnwuvq-tbbuev does ALL the effort. Patient does none of the effort to complete the activity. Or, the assistance of 2 or more helpers is required for the patient to complete the activity. If activity was not attempted, code reason: 7-Patient Refused. 9-Not Applicable-not attempted and the patient did not perform the activity before the current illness, exacerbation or injury. 10-Not Attempted due to Environmental Limitations-(lack of equipment, weather restraints, etc.). 88-Not Attempted due to Medical Conditions or Safety Concerns. Oral Hygiene (QC): 6 Bathing Location: L Arm, R Arm, L Upper Leg, R Upper Leg, L Lower Leg (including foot), R Lower Leg (including foot), Chest, Abdomen, Perineal Area Shower/Bathe Self (QC): 3 Upper Body Dressing (QC): 5 Lower Body Dressing (QC): 3 On/Off Footwear: 5 Education OT Patient Education: Use of adapted equipment Teaching Recipient: Patient Teaching Methods: Demonstration, Discussion Response to Teaching: Verbalize Understanding, Return Demonstration, Reinf orcement Needed OT Short Term Goals Short Term Goals Time Frame: Aug 05, 2020 Eatin Oral hygiene: 5 Toileting hygiene: 3 Shower/bathe self: 3 Upper body dressin Lower body dressin Putting on/taking off footwear: 4 OT Shelter Goals Car Conditioner Goals Time Frame: Aug 12, 2020 Eating (QC): 6 Oral Hygiene (QC): 6 Toileting Hygiene (QC): 6 Shower/Bathe Self (QC): 4 Upper Body Dressing (QC): 6 Lower Body Dressing (QC): 6 On/Off Footwear (QC): 6 Additional Goals: 1-Demonstrate ADL Tasks, 2-Verbalize Understanding, 3- ImproveStrength/Sandra 1=Demonstrate adherence to instructed precautions during ADL tasks. 2=Patient will verbalize/demonstrate understanding of assistive devices/modifications for ADL. 3=Patient will improve strength/tolerance for activity to enable patient to perform ADL's. OT Education/Plan Problem List/Assessment Assessment: Decreased Activ Tolerance, Decreased Safety Aware, Impaired Funct Balance, Impaired I ADL's, Impaired Self-Care Skills Discharge Recommendations Plan/Recommendations: Continue POC Treatment Plan/Plan of Care Patient would benefit from OT for education, treatment and training to promote independence in ADL's, mobility, safety and/or upper extremity function for ADL's. Plan of Care: ADL Retraining, Functional Mobility, UE Funct Exercise/Act Treatment Duration: Aug 12, 2020 Frequency: At least 5 of 7 days/Wk (IRF) Estimated Hrs Per Day: 1.5 hours per day Agreement: Yes Rehab Potential: Good Time/GCodes Start Time: 09:00 Stop Time: 10:00 Total Time Billed (hr/min): 60 Billed Treatment Time 1 visit-ADL 4(60 mins) VENTURA MILES Jul 31, 2020 09:59
[2020-07-31] MEDS: CYCLOBENZAPRINE 10 MG (FLEXERIL) TAB PO PRN (12:26)
--- NOTE | 2020-07-31 14:30 | NUR ---
MIDLINE INSERTED INTO RIGHT UPPER ARM BY DAY SURG NURSE. ASPIRATES BLOOD AND FLUSHES WELL.
--- NOTE | 2020-07-31 14:36 | Therapy Group Daily Note ---
Therapy Daily Group Note Patient Education Topic Exercises, Other List Below (transfer skills, bed mobility, ARU description) Exercises LE Seated Exercise, UE Exercise Session Ratio (pt:therapist): 4:1 Goal of Session: Education on ARU Expectations, UE/LE Strengthing, Safety with Transfers Goal Met for this Session: Yes Pt Benefit of Group: Contributions to Others, Increased Functional Safety, Increased Functional Strength, Improved Cognition, Recognition of Peers, Socialization Other/Notes Pt transported via w/c to OT/PT group [facility]. Group consisted of introductions (name, place living, best advice given), socialization, seated UE/LE exercises, educational topics of ARU description/bed mobility and transfers. Pt introduced self appropriately and actively listened to peers. Pt acknowledged understanding of educational topics by contributing to group discussions and given personal strategies. Pt held peer to peer conversations and was able to give positive affirmations about self and peers. After group, pt lying in bed with call light/phone in reach. All needs met in room. Start Time: 13:00 Stop Time: 14:15 Total Billed Treatment Time: 75 Total Billed Treatment 1-VENTURA CARDOZA Jul 31, 2020 14:36
[2020-07-31] MEDS: IRON SUCROSE 200 MG/10 ML (VENOFER) VIAL IV SCH (15:05)
--- NOTE | 2020-07-31 15:19 | NUR ---
CM/SS ADMISSION Patient was admitted to ARU 07/29/20 from [facility] for Severe Debility Critical Illness. Patient has been hospitalized 20 days prior to arrival here. Other comorbidities are, in part, back pain, [place] type 2, GRUPO on CPAP, morbid obesity, edema, MSSA septicemia. Patient was employed and functioned independently prior to onset of low back pain and the decline that followed. Patient resides at home with her spouse Mert Burger and plans to return there when able. Patient had low back pain radiating down right leg starting around 07/07. She presented to a clinic and the next day to [facility], diagnosed with a pinched nerve both times. On the third day she developed SOB and presented back to [facility] at which time she was admitted to the hospital. PCP: Dr. Mariel Cárdenas, [place], [place] PH: [phone] [facility] INS[facility]ANCE: [facility] DME: Patient has tub transfer bench and FWW, both hand me downs that she has been using during this period of decline. BARRIERS TO DISCHARGE: Weak and deconditioned, lengthy hospital stay. Insurance coverage appears positive and anticipated post hospital services and DME appear obtainable. CONTACTS: Mert Jennyfer, Spouse [address] [place] [address] Linda Taylor, Daughter [place], [place] [phone] Patient understands the purpose and process of the weekly patient care conference and that her first review will be 08/05/20.
[2020-07-31 16:00] VITALS: BP 123/59
[2020-07-31] MEDS ORDERED: CATHETER FLUSH 10 ML SYR IV PRN (16:00)
--- NOTE | 2020-07-31 16:00 | NUR ---
URINE DARK PRISCA. FLUIDS ENCOURAGED. CONTINUE TO MONITOR.
[2020-07-31] MEDS: IMIPRAMINE 25 MG (TOFRANIL) TAB PO SCH (21:06)
[2020-07-31] MEDS: MELATONIN 3 MG TABLET PO PRN (21:06)
[2020-07-31] MEDS: LIDOCAINE PATCH REMOVAL TP SCH (21:20)
--- NOTE | 2020-07-31 21:22 | NUR ---
Lidocaine patch removal non-administered due to patient not having one put on this morning.
[2020-07-31] MEDS: CATHETER FLUSH 10 ML SYR IV SCH (21:23)
[2020-08-01 05:12] VITALS: BP 121/58
[2020-08-01] MEDS: CATHETER FLUSH 10 ML SYR IV SCH ×3 (06:36→19:53)
[2020-08-01] MEDS: FUROSEMIDE 20 MG (LASIX) TAB PO SCH (08:50)
[2020-08-01] MEDS: buPROPion SR 100 MG (WELLBUTRIN SR) TAB PO SCH ×2 (08:50→19:48)
[2020-08-01] MEDS: ENOXAPARIN 40 MG/0.4 ML (LOVENOX) SYR SC SCH ×2 (08:50→19:48)
[2020-08-01] MEDS: CYCLOBENZAPRINE 10 MG (FLEXERIL) TAB PO PRN (08:50)
[2020-08-01] MEDS: lisINopril 20 MG (PRINIVIL) TABLET PO SCH (08:50)
[2020-08-01] MEDS: LIDOCAINE 4% (SALONPAS) PATCH TP SCH (08:50)
[2020-08-01] MEDS: meTOprolol TARTRATE 50 MG (LOPRESSOR) TAB PO SCH ×2 (08:50→19:48)
[2020-08-01] MEDS: LEVOTHYROXINE 125 MCG (LEVOTHROID) TABLET PO SCH (08:50)
[2020-08-01] MEDS: PANTOPRAZOLE 20 MG TABLET (PROTONIX) PO SCH (08:52)
[2020-08-01] MEDS: SENNA W/DOCUSATE (SENOKOT S) TABLET PO SCH ×2 (09:00→19:45)
[2020-08-01] MEDS: DOCUSATE SODIUM 100 MG (COLACE) CAP PO SCH ×2 (09:00→19:45)
[2020-08-01] MEDS: polyethylene glycoL POWDER 17 GM (MIRALAX) PACK PO SCH ×2 (09:00→19:45)
--- NOTE | 2020-08-01 09:22 | Physical Therapy Daily Note ---
PT Daily Note-Current Subjective Pt sitting up in recliner with feet elevated due to swelling upon arrival. Pt agrees to PT. Pain Numeric Pain Scale: 5-Moderate Pain Location: Right Location Body Site: Hip Pain Description: Ache Mental Status Patient Orientation: Person, Place, Situation Transfers SCALE: Activities may be completed with or without assistive devices. 7-Azpvronvfu-vyxnnct completes the activity by him/herself with no assistance from a helper. 5-Set-up or Clean-up Assistance-helper sets up or cleans up; patient completes activity. [place] assists only prior to or following the activity. 4-Supervision or Touching Assistance-helper provides verbal cues and/or touching/steadying and/or contact guard assistance as patient completes activity. Assistance may be provided throughout the activity or intermittently. 3-Partial/Moderate Assistance-helper does LESS THAN HALF the effort. [place] lifts, holds or supports trunk or limbs, but provides less than half the effort. 2-Substantial/Maximal Assistance-helper does MORE THAN HALF the effort. [place] lifts or holds trunk or limbs and provides more than half the effort. 4-Pmqjrghpg-kjoxec does ALL the effort. Patient does none of the effort to complete the activity. Or, the assistance of 2 or more helpers is required for the patient to complete the activity. If activity was not attempted, code reason: 7-Patient Refused. 9-Not Applicable-not attempted and the patient did not perform the activity before the current illness, exacerbation or injury. 10-Not Attempted due to Environmental Limitations-(lack of equipment, weather restraints, etc.). 88-Not Attempted due to Medical Conditions or Safety Concerns. Weight Bearing Full Weight Bearing Full Weight Bearing Exercises Supine Ex: Ankle pumps, Quad Set, Glut sets, Heel Slides, Short Arc Quads, Straight leg raise, Hip abd/add Supine Reps: 15 Treatments Completes Supine EX with encouragement and Min A at times with EX. Reviewed written HEP. Pt resting with all needs met, call light in hand. Assessment Current Status: Fair Progress Pt is limited by pain and weakness at this time. PT Short Term Goals Short Term Goals Time Frame: Aug 05, 2020 Lying to sitting on side of be: 4 Sit to stand: 4 Walk 50 feet with two turns: 4 Walk 150 feet: 4 1 step (curb): 3 PT Senior Care Goals Senior Care Goals PT Director Of Land Acquisition Goals Time Frame: Aug 19, 2020 Roll Left & Right (QC): 6 Sit to Lying (QC): 6 Lying-Sitting on Side/Bed(QC): 6 Sit to Stand (QC): 6 Chair/Dri-gh-Tjhfn Xfer(QC): 6 Toilet Transfer (QC): 6 Car Transfer (QC): 6 Does the Patient Walk: Yes Walk 10 feet (QC): 6 Walk 50ft with 2 Turns (QC): 6 Walk 150 ft (QC): 6 Walking 10ft on Uneven Surface: 5 1 Step (curb) (QC): 6 4 Steps (QC): 6 12 Steps (QC): 5 Picking up an Object (QC): 5 Does the Pt use WC or Scooter?: No Wheel 50 feet with 2 turns (QC: 9 Wheel 150 feet: 9 PT Plan Problem List Problem List: Activity Tolerance, Functional Strength Treatment/Plan Treatment Plan: Continue Plan of Care Treatment Plan: Bed Mobility, Education, Functional Activity Sandra, Functional Strength, Group Therapy, Gait, Safety, Therapeutic Exercise, Transfers Treatment Duration: Aug 19, 2020 Frequency: At least 5 of 7 days/Wk (IRF) Estimated Hrs Per Day: 1.5 hours per day Patient and/or Family Agrees t: Yes Safety Risks/Education Patient Education: Issued Written HEP, Correct Positioning, Safety Issues Teaching Recipient: Patient Teaching Methods: Discussion Response to Teaching: Verbalize Understanding Time/GCodes Time In: 815 Time Out: 840 Total Billed Treatment Time: 25 Total Billed Treatment 1, EX x2 (25m) REYNOLDJASMEET MELARA Aug 01, 2020 09:22
--- NOTE | 2020-08-01 12:05 | PM&R Progress Note ---
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 07/31/20: at bedside today Flexeril helps back pain Used CPAP last night BM+ No falls Feels improved Fogginess in thought process noted at times Midline placed for IV iron and she has not received iron before IV but has anemia longterm Patient settling in RIght back and leg pain improved Worse CPAP last night Dr Cabrera consulted for night time polyuria and incontinence 2+ edema lower legs still KRISTEN wraps placed due to intolerance to GERARDO hose Hgb 10.4 Iron pending Checked meds and labs Conferred with RN Reviewed therapy notes Review of Systems Musculoskeletal: back pain Objective Exam Vital Signs Vital Signs Date Time Temp Pulse Resp B/P (MAP) Pulse Ox O2 Delivery O2 Flow Rate FiO2 08/01/20 18:00 36.4 77 16 137/65 (89) 96 Room Air Capillary Refill : Less Than 3 Seconds General Appearance: No Apparent Distress, WD/WN, Chronically ill, Obese HEENT: PERRL/EOMI, Normal ENT Inspection, Pharynx Normal Neck: Full Range of Motion, Normal Inspection, Non Tender, Supple, Carotid Bruit Respiratory: Chest Non Tender, Lungs Clear, Normal Breath Sounds, No Accessory Muscle Use, No Respiratory Distress Cardiovascular: Regular Rate, Rhythm, No Edema, No Gallop, No JVD, No Murmur, Normal Peripheral Pulses Gastrointestinal: Normal Bowel Sounds, No Organomegaly, No Pulsatile Mass, Non Tender, Soft Back: Normal Inspection, Decreased Range of Motion, Muscle Spasm, Vertebral Tenderness Extremity: Normal Capillary Refill, Normal Inspection, Normal Range of Motion, Non Tender, No Calf Tenderness, No Pedal Edema Neurologic/Psychiatric: Alert, Oriented x3, No Motor/Sensory Deficits, Normal Mood/Affect, 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 FIM Transfers Therapy Code Descriptions/Definitions Functional [place] Measure: 0=Not Assessed/NA 4=Minimal Assistance 1=Total Assistance 5=Supervision or Setup 2=Maximal Assistance 6=Modified [place] 3=Moderate Assistance 7=Complete IndependenceSCALE: Activities may be completed with or without assistive devices. 6-Tuafegyndb-puyphkm completes the activity by him/herself with no assistance from a helper. 5-Set-up or Clean-up Assistance-helper sets up or cleans up; patient completes activity. [place] assists only prior to or following the activity. 4-Supervision or Touching Assistance-helper provides verbal cues and/or touching/steadying and/or contact guard assistance as patient completes activity. Assistance may be provided throughout the activity or intermittently. 3-Partial/Moderate Assistance-helper does LESS THAN HALF the effort. [place] lifts, holds or supports trunk or limbs, but provides less than half the effort. 2-Substantial/Maximal Assistance-helper does MORE THAN HALF the effort. [place] lifts or holds trunk or limbs and provides more than half the effort. 3-Fytbjgaox-ziepom does ALL the effort. Patient does none of the effort to complete the activity. Or, the assistance of 2 or more helpers is required for the patient to complete the activity. If activity was not attempted, code reason: 7-Patient Refused. 9-Not Applicable-not attempted and the patient did not perform the activity be fore the current illness, exacerbation or injury. 10-Not Attempted due to Environmental Limitations-(lack of equipment, weather restraints, etc.). 88-Not Attempted due to Medical Conditions or Safety Concerns. Roll Left to Right (QC): 4 Sit to Lying (QC): 5 Sit to Stand (QC): 4 Chair/Mof-ej-Plcsq Xfer(QC): 4 Car Transfer (QC): 3 Gait Training Does the Patient Walk?: Yes Walk 10 feet (QC): 4 Walk 50 ft with 2 Turns(QC): 4 Walk 150 ft (QC): 88 (unable/unsafe to attempt to walk further than 50 ft. ) Walking 10ft/uneven surface-QC: 3 (min assist for balance and safety. ) Gait Persons Needed: 1 Gait Assistive Device: FWW Wheelchair Training Does the Pt Use a Wheelchair?: Yes Wheel 50 ft with 2 turns (QC): 9 Wheel 150 ft (QC): 9 Type of Wheelchair: Manual Stair Training 1 Step (curb) (QC): 88 (approached step but pt unable to safely attempt; fall risk noted. ) 4 Steps (QC): 88 12 Steps (QC): 88 Balance Picking up an Object (QC): 88 (functional weakness and balance deficit limit safety to attempt this task) ADL-Treatment Eating (QC): 6 (Using clinical judgement, pt able to complete own meal set up and use regular utensils to eat.) Oral Hygiene (QC): 6 Bathing Location: L Arm, R Arm, L Upper Leg, R Upper Leg, L Lower Leg (including foot), R Lower Leg (including foot), Chest, Abdomen, Perineal Area Shower/Bathe Self (QC): 3 Upper Body Dressing (QC): 5 Lower Body Dressing (QC): 3 On/Off Footwear (QC): 5 Toileting Hygiene (QC): 1 Toilet Transfer (QC): 4 Assessment/Plan Assessment and Plan Assess & Plan/Chief Complaint Assessment: Severe back pain with debility after 20 days hospital course at [facility] MSSA bacteremia HTN HLP Thrombocytosis Obesity GRUPO on CPAP Plan: Monitor labs Check iron level IRF protocol Fall risk 07/31/20: IV iron infusion ordered after midline Pain control IRF protocol 08/01/20: Continue IV iron infusions via midline Improved overall Pain controlled (1) Debility (2) Back pain (3) Type 2 myocardial infarction (4) GRUPO on CPAP (5) Obesity, morbid, BMI 40.0-49.9 (6) Edema (7) MSSA (methicillin susceptible Staphylococcus aureus) septicemia KRYSTIAN LLANES DO Aug 01, 2020 12:05
[2020-08-01 18:00] VITALS: BP 137/65
[2020-08-01] MEDS: MELATONIN 3 MG TABLET PO PRN (19:48)
[2020-08-01] MEDS: IMIPRAMINE 25 MG (TOFRANIL) TAB PO SCH (19:48)
[2020-08-01] MEDS: LIDOCAINE PATCH REMOVAL TP SCH (19:53)
[2020-08-02] MEDS: CATHETER FLUSH 10 ML SYR IV SCH ×3 (05:06→20:40)
[2020-08-02 05:46] VITALS: BP 136/63
[2020-08-02] MEDS: LIDOCAINE 4% (SALONPAS) PATCH TP SCH (08:12)
[2020-08-02] MEDS: IRON SUCROSE 200 MG/10 ML (VENOFER) VIAL IV SCH (08:12)
[2020-08-02] MEDS: ENOXAPARIN 40 MG/0.4 ML (LOVENOX) SYR SC SCH ×2 (08:12→20:40)
[2020-08-02] MEDS: buPROPion SR 100 MG (WELLBUTRIN SR) TAB PO SCH ×2 (08:13→20:39)
[2020-08-02] MEDS: meTOprolol TARTRATE 50 MG (LOPRESSOR) TAB PO SCH ×2 (08:13→20:40)
[2020-08-02] MEDS: lisINopril 20 MG (PRINIVIL) TABLET PO SCH (08:13)
[2020-08-02] MEDS: LEVOTHYROXINE 125 MCG (LEVOTHROID) TABLET PO SCH (08:13)
[2020-08-02] MEDS: DOCUSATE SODIUM 100 MG (COLACE) CAP PO SCH ×2 (08:13→19:48)
[2020-08-02] MEDS: SENNA W/DOCUSATE (SENOKOT S) TABLET PO SCH ×2 (08:13→19:48)
[2020-08-02] MEDS: CYCLOBENZAPRINE 10 MG (FLEXERIL) TAB PO PRN ×2 (08:13→17:16)
[2020-08-02] MEDS: PANTOPRAZOLE 20 MG TABLET (PROTONIX) PO SCH (08:13)
[2020-08-02] MEDS: FUROSEMIDE 20 MG (LASIX) TAB PO SCH (08:13)
[2020-08-02] MEDS: polyethylene glycoL POWDER 17 GM (MIRALAX) PACK PO SCH ×2 (09:00→19:48)
--- NOTE | 2020-08-02 12:03 | PM&R Progress Note ---
Subjective HPI/CC On Admission Date Seen by Provider: Aug 02, 2020 Time Seen by Provider: 12:15 Subjective/Events-last exam 08/02/20: Patient doing better Spasms noted right back which are profound I reviewed [facility] chart regarding workup for those spasms and it appears that she did not receive an MRI so will order that since this is delaying her recovery and her recent bacteremia will need with and without contrast to be sure there is no seeding of bacteria Nose dry so ordered saline nasal spray CPAP used at bedside and talked about knee braces 08/01/20: Patient doing well today BM Urinary system improved on new meds from Urology Pain controlled 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 07/31/20: at bedside today Flexeril helps back pain Used CPAP last night BM+ No falls Feels improved Fogginess in thought process noted at times Midline placed for IV iron and she has not received iron before IV but has an emia long-term Patient settling in RIght back and leg pain improved Worse CPAP last night Dr Cabrera consulted for night time polyuria and incontinence 2+ edema lower legs still KRISTEN wraps placed due to intolerance to GERARDO hose Hgb 10.4 Iron pending Checked meds and labs Conferred with RN Reviewed therapy notes Objective Exam Vital Signs Vital Signs Date Time Temp Pulse Resp B/P (MAP) Pulse Ox O2 Delivery O2 Flow Rate FiO2 08/02/20 09:00 Room Air 08/02/20 05:46 37.0 75 18 136/63 (87) 95 Capillary Refill : Less Than 3 Seconds General Appearance: No Apparent Distress, WD/WN, Chronically ill, Obese HEENT: PERRL/EOMI, Normal ENT Inspection, Pharynx Normal Neck: Full Range of Motion, Normal Inspection, Non Tender, Supple, Carotid Bruit Respiratory: Chest Non Tender, Lungs Clear, Normal Breath Sounds, No Accessory Muscle Use, No Respiratory Distress Cardiovascular: Regular Rate, Rhythm, No Edema, No Gallop, No JVD, No Murmur, Normal Peripheral Pulses Gastrointestinal: Normal Bowel Sounds, No Organomegaly, No Pulsatile Mass, Non Tender, Soft Back: Normal Inspection, Decreased Range of Motion, Muscle Spasm, Vertebral Tenderness Extremity: Normal Capillary Refill, Normal Inspection, Normal Range of Motion, Non Tender, No Calf Tenderness, No Pedal Edema Neurologic/Psychiatric: Alert, Oriented x3, No Motor/Sensory Deficits, Normal Mood/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 FIM Transfers Therapy Code Descriptions/Definitions Functional [place] Measure: 0=Not Assessed/NA 4=Minimal Assistance 1=Total Assistance 5=Supervision or Setup 2=Maximal Assistance 6=Modified [place] 3=Moderate Assistance 7=Complete IndependenceSCALE: Activities may be completed with or without assistive devices. 8-Rxwxwgxidg-ccjbtnx completes the activity by him/herself with no assistance from a helper. 5-Set-up or Clean-up Assistance-helper sets up or cleans up; patient completes activity. [place] assists only prior to or following the activity. 4-Supervision or Touching Assistance-helper provides verbal cues and/or touching/steadying and/or contact guard assistance as patient completes activity. Assistance may be provided throughout the activity or intermittently. 3-Partial/Moderate Assistance-helper does LESS THAN HALF the effort. [place] lifts, holds or supports trunk or limbs, but provides less than half the effort. 2-Substantial/Maximal Assistance-helper does MORE THAN HALF the effort. [place] lifts or holds trunk or limbs and provides more than half the effort. 2-Vlgezfubu-pjvjzz does ALL the effort. Patient does none of the effort to complete the activity. Or, the assistance of 2 or more helpers is required for the patient to complete the activity. If activity was not attempted, code reason: 7-Patient Refused. 9-Not Applicable-not attempted and the patient did not perform the activity before the current illness, exacerbation or injury. 10-Not Attempted due to Environmental Limitations-(lack of equipment, weather restraints, etc.). 88-Not Attempted due to Medical Conditions or Safety Concerns. Roll Left to Right (QC): 4 Sit to Lying (QC): 5 Sit to Stand (QC): 4 Chair/Pum-de-Ezuob Xfer(QC): 4 Car Transfer (QC): 3 Gait Training Does the Patient Walk?: Yes Walk 10 feet (QC): 4 Walk 50 ft with 2 Turns(QC): 4 Walk 150 ft (QC): 88 (unable/unsafe to attempt to walk further than 50 ft. ) Walking 10ft/uneven surface-QC: 3 (min assist for balance and safety. ) Gait Persons Needed: 1 Gait Assistive Device: FWW Wheelchair Training Does the Pt Use a Wheelchair?: Yes Wheel 50 ft with 2 turns (QC): 9 Wheel 150 ft (QC): 9 Type of Wheelchair: Manual Stair Training 1 Step (curb) (QC): 88 (approached step but pt unable to safely attempt; fall risk noted. ) 4 Steps (QC): 88 12 Steps (QC): 88 Balance Picking up an Object (QC): 88 (functional weakness and balance deficit limit safety to attempt this task) ADL-Treatment Eating (QC): 6 (Using clinical judgement, pt able to complete own meal set up and use regular utensils to eat.) Oral Hygiene (QC): 6 Bathing Location: L Arm, R Arm, L Upper Leg, R Upper Leg, L Lower Leg (including foot), R Lower Leg (including foot), Chest, Abdomen, Perineal Area Shower/Bathe Self (QC): 3 Upper Body Dressing (QC): 5 Lower Body Dressing (QC): 3 On/Off Footwear (QC): 5 Toileting Hygiene (QC): 1 Toilet Transfer (QC): 4 Assessment/Plan Assessment and Plan Assess & Plan/Chief Complaint Assessment: Severe back pain with debility after 20 days hospital course at [facility] MSSA bacteremia HTN HLP Thrombocytosis Obesity GRUPO on CPAP Plan: Monitor labs Check iron level IRF protocol Fall risk 07/31/20: IV iron infusion ordered after midline Pain control IRF protocol 08/01/20: Continue IV iron infusions via midline Improved overall Pain controlled 08/02/20: MRI L-spine with and without IV contrast since [facility] had not completed one due to bacteremia issues taking precedence and this is delaying recovery and participation in her therapy. CPAP use nightly and slept well Knee braces per PT tomorrow recs as requested (1) Debility (2) Back pain (3) Type 2 myocardial infarction (4) GRUPO on CPAP (5) Obesity, morbid, BMI 40.0-49.9 (6) Edema (7) MSSA (methicillin susceptible Staphylococcus aureus) septicemia KRYSTIAN LLANES DO Aug 02, 2020 12:03
[2020-08-02] MEDS ORDERED: DIAZEPAM 5 MG (VALIUM) TABLET PO PRN (17:00)
[2020-08-02] MEDS ORDERED: SALINE NASAL SPRAY (OCEAN) 45 ML BTL PRN (17:30)
[2020-08-02 17:39] VITALS: BP 131/63
[2020-08-02] MEDS: IMIPRAMINE 25 MG (TOFRANIL) TAB PO SCH (20:39)
[2020-08-02] MEDS: LIDOCAINE PATCH REMOVAL TP SCH (20:40)
[2020-08-02] MEDS: MELATONIN 3 MG TABLET PO PRN (20:40)
--- NOTE | 2020-08-03 05:24 | PM&R Progress Note ---
Subjective HPI/CC On Admission Date Seen by Provider: Aug 03, 2020 Time Seen by Provider: 10:00 Subjective/Events-last exam 08/03/20: MRI of the lumbar spine will be done today with Valium taken 1hr before fo 5mg Tolerating IV iron infusions Overall feels like she is doing well 08/02/20: Patient doing better Spasms noted right back which are profound I reviewed [place] chart regarding workup for those spasms and it appears that she did not receive an MRI so will order that since this is delaying her recovery and her recent bacteremia will need with and without contrast to be sure there is no seeding of bacteria Nose dry so ordered saline nasal spray CPAP used at bedside and talked about knee braces 08/01/20: Patient doing well today BM Urinary system improved on new meds from Urology Pain controlled 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 07/31/20: at bedside today Flexeril helps back pain Used CPAP last night BM+ No falls Feels improved Fogginess in thought process noted at times Midline placed for IV iron and she has not received iron before IV but has anemia 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 Patient settling in RIght back and leg pain improved Worse CPAP last night Dr Cabrera consulted for night time polyuria and incontinence 2+ edema lower legs still KRISTEN wraps placed due to intolerance to GERARDO hose Hgb 10.4 Iron pending Checked meds and labs Conferred with RN Reviewed therapy notes Review of Systems General: Fatigue, Malaise Neurological: Weakness Objective Exam Vital Signs Vital Signs Date Time Temp Pulse Resp B/P (MAP) Pulse Ox O2 Delivery O2 Flow Rate FiO2 08/03/20 20:50 Room Air 08/03/20 16:00 36.2 73 16 124/60 (81) 99 Capillary Refill : Less Than 3 Seconds General Appearance: No Apparent Distress, WD/WN, Chronically ill, Obese HEENT: PERRL/EOMI, Normal ENT Inspection, Pharynx Normal Neck: Full Range of Motion, Normal Inspection, Non Tender, Supple, Carotid Bruit Respiratory: Chest Non Tender, Lungs Clear, Normal Breath Sounds, No Accessory Muscle Use, No Respiratory Distress Cardiovascular: Regular Rate, Rhythm, No Edema, No Gallop, No JVD, No Murmur, Normal Peripheral Pulses Gastrointestinal: Normal Bowel Sounds, No Organomegaly, No Pulsatile Mass, Non Tender, Soft Back: Normal Inspection, Decreased Range of Motion, Muscle Spasm, Vertebral Tenderness Extremity: Normal Capillary Refill, Normal Inspection, Normal Range of Motion, Non Tender, No Calf Tenderness, No Pedal Edema Neurologic/Psychiatric: Alert, Oriented x3, No Motor/Sensory Deficits, Normal 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 FIM Transfers Therapy Code Descriptions/Definitions Functional [place] Measure: 0=Not Assessed/NA 4=Minimal Assistance 1=Total Assistance 5=Supervision or Setup 2=Maximal Assistance 6=Modified [place] 3=Moderate Assistance 7=Complete IndependenceSCALE: Activities may be completed with or without assistive devices. 4-Qobrbgypgn-ftojuwn completes the activity by him/herself with no assistance from a helper. 5-Set-up or Clean-up Assistance-helper sets up or cleans up; patient completes activity. [place] assists only prior to or following the activity. 4-Supervision or Touching Assistance-helper provides verbal cues and/or touching/steadying and/or contact guard assistance as patient completes activity. Assistance may be provided throughout the activity or intermittently. 3-Partial/Moderate Assistance-helper does LESS THAN HALF the effort. [place] lifts, holds or supports trunk or limbs, but provides less than half the effort. 2-Substantial/Maximal Assistance-helper does MORE THAN HALF the effort. [place] lifts or holds trunk or limbs and provides more than half the effort. 9-Ufmgzmdwu-qfdyfs does ALL the effort. Patient does none of the effort to complete the activity. Or, the assistance of 2 or more helpers is required for the patient to complete the activity. If activity was not attempted, code reason: 7-Patient Refused. 9-Not Applicable-not attempted and the patient did not perform the activity before the current illness, exacerbation or injury. 10-Not Attempted due to Environmental Limitations-(lack of equipment, weather restraints, etc.). 88-Not Attempted due to Medical Conditions or Safety Concerns. Roll Left to Right (QC): 4 Sit to Lying (QC): 5 Sit to Stand (QC): 4 Chair/Cno-ze-Hcisz Xfer(QC): 4 Car Transfer (QC): 3 Gait Training Does the Patient Walk?: Yes Walk 10 feet (QC): 4 Walk 50 ft with 2 Turns(QC): 4 Walk 150 ft (QC): 88 (unable/unsafe to attempt to walk further than 50 ft. ) Walking 10ft/uneven surface-QC: 3 (min assist for balance and safety. ) Gait Persons Needed: 1 Gait Assistive Device: FWW Wheelchair Training Does the Pt Use a Wheelchair?: Yes Wheel 50 ft with 2 turns (QC): 9 Wheel 150 ft (QC): 9 Type of Wheelchair: Manual Stair Training 1 Step (curb) (QC): 88 (approached step but pt unable to safely attempt; fall risk noted. ) 4 Steps (QC): 88 12 Steps (QC): 88 Balance Picking up an Object (QC): 88 (functional weakness and balance deficit limit safety to attempt this task) ADL-Treatment Eating (QC): 6 (Using clinical judgement, pt able to complete own meal set up and use regular utensils to eat.) Oral Hygiene (QC): 6 Bathing Location: L Arm, R Arm, L Upper Leg, R Upper Leg, L Lower Leg (including foot), R Lower Leg (including foot), Chest, Abdomen, Perineal Area Shower/Bathe Self (QC): 3 Upper Body Dressing (QC): 5 Lower Body Dressing (QC): 3 On/Off Footwear (QC): 5 Toileting Hygiene (QC): 1 Toilet Transfer (QC): 4 Assessment/Plan Assessment and Plan Assess & Plan/Chief Complaint Assessment: Severe back pain with debility after 20 days hospital course at [place] MSSA bacteremia HTN HLP Thrombocytosis Obesity GRUPO on CPAP Plan: Monitor labs Check iron level IRF protocol Fall risk 07/31/20: IV iron infusion ordered after midline Pain control IRF protocol 08/01/20: Continue IV iron infusions via midline Improved overall Pain controlled 08/02/20: MRI L-spine with and without IV contrast since [place] had not completed one due to bacteremia issues taking precedence and this is delaying recovery and participation in her therapy. CPAP use nightly and slept well Knee braces per PT tomorrow recs as requested 08/03/20: Obtain MRI today at the lumbar spine Continue IV iron infusions Could not tolerate MRI due to anxiety even after Valium given and could not fit due to obesity (1) Debility (2) Back pain (3) Type 2 myocardial infarction (4) GRUPO on CPAP (5) Obesity, morbid, BMI 40.0-49.9 (6) Edema (7) MSSA (methicillin susceptible Staphylococcus aureus) septicemia KRYSTIAN LLANES DO Aug 03, 2020 05:24
[2020-08-03] MEDS: CATHETER FLUSH 10 ML SYR IV SCH ×3 (05:51→20:50)
[2020-08-03] MEDS: CYCLOBENZAPRINE 10 MG (FLEXERIL) TAB PO PRN (05:56)
[2020-08-03 06:33] LABS: BASOPHILS % (AUTO) 0 % (0-10); EOSINOPHILS # (AUTO) 0.3 10^3/uL (0.0-0.3); EOSINOPHILS % (AUTO) 5 % (0-10); HEMATOCRIT 34 % (35-52); HEMOGLOBIN 10.5 G/DL (11.5-16.0); LYMPHOCYTES # (AUTO) 1.8 X 10^3 (1.0-4.0); LYMPHOCYTES % (AUTO) 33 % (12-44); MEAN CORPUSCULAR HEMOGLOBIN 27 PG (25-34); MEAN CORPUSCULAR HGB CONC 31 G/DL (32-36); MEAN CORPUSCULAR VOLUME 86 FL (80-99); MEAN PLATELET VOLUME 8.8 FL (7.4-10.4); MONOCYTES # (AUTO) 0.9 X 10^3 (0.0-1.0); MONOCYTES % (AUTO) 16 % (0-12); NEUTROPHILS # (AUTO) 2.5 X 10^3 (1.8-7.8); NEUTROPHILS % (AUTO) 46 % (42-75); PLATELET COUNT 521 10^3/uL (130-400); WHITE BLOOD COUNT 5.4 10^3/uL (4.3-11.0)
[2020-08-03 06:39] VITALS: BP 117/58
[2020-08-03 06:43] LABS: ALBUMIN 2.8 GM/DL (3.2-4.5)
[2020-08-03 06:44] LABS: CHLORIDE 102 MMOL/L (98-107); POTASSIUM 3.8 MMOL/L (3.6-5.0); SODIUM 137 MMOL/L (135-145)
[2020-08-03 06:45] LABS: CALCIUM 8.2 MG/DL (8.5-10.1)
[2020-08-03 06:46] LABS: GLUCOSE 91 MG/DL (70-105); TOTAL PROTEIN 6.6 GM/DL (6.4-8.2)
[2020-08-03 06:47] LABS: CARBON DIOXIDE 24 MMOL/L (21-32)
[2020-08-03 06:48] LABS: BILIRUBIN,TOTAL 0.3 MG/DL (0.1-1.0)
[2020-08-03 06:49] LABS: ALKALINE PHOSPHATASE 110 U/L (40-136)
[2020-08-03 06:50] LABS: CREATININE SERUM 0.64 MG/DL (0.60-1.30); GFR ESTIMATED > 60
[2020-08-03 06:51] LABS: BUN/CREATININE RATIO 14
[2020-08-03 06:53] LABS: ALANINE AMINOTRANSFERASE 7 U/L (0-55)
[2020-08-03 08:00] VITALS: BP 114/61
[2020-08-03] MEDS: meTOprolol TARTRATE 50 MG (LOPRESSOR) TAB PO SCH ×2 (08:06→20:49)
[2020-08-03] MEDS: buPROPion SR 100 MG (WELLBUTRIN SR) TAB PO SCH ×2 (08:06→20:49)
[2020-08-03] MEDS: LEVOTHYROXINE 125 MCG (LEVOTHROID) TABLET PO SCH (08:06)
[2020-08-03] MEDS: PANTOPRAZOLE 20 MG TABLET (PROTONIX) PO SCH (08:06)
[2020-08-03] MEDS: lisINopril 20 MG (PRINIVIL) TABLET PO SCH (08:06)
[2020-08-03] MEDS: FUROSEMIDE 20 MG (LASIX) TAB PO SCH (08:06)
[2020-08-03] MEDS: ENOXAPARIN 40 MG/0.4 ML (LOVENOX) SYR SC SCH ×2 (08:07→20:50)
[2020-08-03] MEDS: polyethylene glycoL POWDER 17 GM (MIRALAX) PACK PO SCH ×2 (08:07→20:51)
[2020-08-03] MEDS: LIDOCAINE 4% (SALONPAS) PATCH TP SCH (08:07)
[2020-08-03] MEDS: DOCUSATE SODIUM 100 MG (COLACE) CAP PO SCH ×2 (08:07→20:51)
[2020-08-03] MEDS: SENNA W/DOCUSATE (SENOKOT S) TABLET PO SCH ×2 (08:08→20:51)
--- NOTE | 2020-08-03 08:51 | Physical Therapy Daily Note ---
PT Daily Note-Current Subjective Pt. up in recliner. States the pain in her right hip and leg has exacerbated to 8-9/10 ken with movement . "It took 3 people to get me out of bed this morning" "I'm having an MRI today" Pain Numeric Pain Scale: 9 Location: Right Location Body Site: Hip (thigh, buttock etc) Pain Description: Stabbing Mental Status Patient Orientation: Normal For Age Transfers SCALE: Activities may be completed with or without assistive devices. 0-Rxpjotmuqh-hvlchpv completes the activity by him/herself with no assistance from a helper. 5-Set-up or Clean-up Assistance-helper sets up or cleans up; patient completes activity. [place] assists only prior to or following the activity. 4-Supervision or Touching Assistance-helper provides verbal cues and/or touching/steadying and/or contact guard assistance as patient completes activity. Assistance may be provided throughout the activity or intermittently. 3-Partial/Moderate Assistance-helper does LESS THAN HALF the effort. [place] lifts, holds or supports trunk or limbs, but provides less than half the effort. 2-Substantial/Maximal Assistance-helper does MORE THAN HALF the effort. [place] lifts or holds trunk or limbs and provides more than half the effort. 9-Yofgurvyk-iqekkq does ALL the effort. Patient does none of the effort to complete the activity. Or, the assistance of 2 or more helpers is required for the patient to complete the activity. If activity was not attempted, code reason: 7-Patient Refused. 9-Not Applicable-not attempted and the patient did not perform the activity before the current illness, exacerbation or injury. 10-Not Attempted due to Environmental Limitations-(lack of equipment, weather restraints, etc.). 88-Not Attempted due to Medical Conditions or Safety Concerns. Roll Left & Right (QC): 2 Sit to Lying (QC): 3 Lying to Sitting/Side of Bed(Q: 2 Sit to Stand (QC): 5 Chair/Zig-ll-Ioodn Xfer(QC): 5 pt. required mod to max assist of RLE sit to supine secondary to RLE pain. After in bed pt.required mod to max assist to roll to side also b/c of pain in RLE, sup to sit max assist of 3 per pat. with this FINANCIAL AIDS OFFICER after pt.was in bed she was unable to get back up secondary to intensifying pain in RLE. Weight Bearing Full Weight Bearing Full Weight Bearing Gait Training Does the Patient Walk?: Yes Walk 10 feet (QC): 4 Walk 50 ft with 2 Turns(QC): 4 Gait Persons Needed: 1 Gait Assistive Device: FWW gait with heavy wt bearing on UEs on FWW pt. ambulated 15ft x 3, 50 ft x 1 in room around bed etc as pt. in such pain she could not attempt out of room . During gait however was less pain than TRFs and seated LE exercises Exercises Seated Therapy Exercises: Ankle pumps, Sit to stand, Long arc quads, Hip flexion (left only), Hip abd/add Seated Reps: 12 (x2) pt. required assist RLE LAQs and was unable to hip flex R in sitting secondary pain c/o. In supine pt. needed assist for heel slides bilat and was unable to roll or push self up in bed . Treatments pt. greatly limited by pain c/o in RLE, this intensified with supine TRF attempts and supine therex. Dr Miles present for visit and explains she hopes to know more about etiology of pain after MRI Assessment Current Status: Fair Progress greatly limited by pain , decreased TRF function secondary to pain limitations, hoping MRI reveals cause PT Short Term Goals Short Term Goals Time Frame: Aug 05, 2020 Lying to sitting on side of be: 4 Sit to stand: 4 Walk 50 feet with two turns: 4 Walk 150 feet: 4 1 step (curb): 3 PT Fdc Goals Pharmacy Buyer Goals PT Pharmacy Buyer Goals Time Frame: Aug 19, 2020 Roll Left & Right (QC): 6 Sit to Lying (QC): 6 Lying-Sitting on Side/Bed(QC): 6 Sit to Stand (QC): 6 Chair/Eak-ll-Kecgy Xfer(QC): 6 Toilet Transfer (QC): 6 Car Transfer (QC): 6 Does the Patient Walk: Yes Walk 10 feet (QC): 6 Walk 50ft with 2 Turns (QC): 6 Walk 150 ft (QC): 6 Walking 10ft on Uneven Surface: 5 1 Step (curb) (QC): 6 4 Steps (QC): 6 12 Steps (QC): 5 Picking up an Object (QC): 5 Does the Pt use WC or Scooter?: No Wheel 50 feet with 2 turns (QC: 9 Wheel 150 feet: 9 PT Plan Treatment/Plan Treatment Plan: Continue Plan of Care Treatment Plan: Bed Mobility, Education, Functional Activity Sandra, Functional Strength, Group Therapy, Gait, Safety, Therapeutic Exercise, Transfers Treatment Duration: Aug 19, 2020 Frequency: At least 5 of 7 days/Wk (IRF) Estimated Hrs Per Day: 1.5 hours per day Patient and/or Family Agrees t: Yes Safety Risks/Education Patient Education: Gait Training, Transfer Techniques, Correct Positioning, Disease Process, Safety Issues Teaching Recipient: Patient Teaching Methods: Demonstration, Discussion Response to Teaching: Verbalize Understanding, Return Demonstration, Reinforcement Needed Time/GCodes Time In: 800 Time Out: 900 Total Billed Treatment Time: 60 Total Billed Treatment 1,FA30m,GT10m,EX20m LUIS EDUARDO MCKEON FINANCIAL AIDS OFFICER Aug 03, 2020 08:51
--- NOTE | 2020-08-03 09:00 | NUR ---
NOTIFIED DR. JACOME OF PT'S DYSURIA AND PINK COLORED URINE. NEW ORDERS TO OBTAIN UA AND THAN START MACROBID 100MG BID FOR 7 DAYS.
--- NOTE | 2020-08-03 09:56 | Occupational Ther Daily Note ---
OT Current Status-Daily Note Subjective Pt alert, lying in bed. Pt states that she was not able to get up with PT due to leg spasms and requires 2 person assist to get OOB. ADL-Treatment Pt declined taking shower due to leg spasms in R leg, but agreed to taking sponge bath. Max A x2 to transfer from supine to EOB. After set up of items for sponge bath, pt was able to complete. Pt was able to cleanse upper arms, chest, abdomen, and upper legs. Required long handled sponge to cleanse lower legs. Pt required hospital gown for today due to scheduled MRI. Pt sit-stand from raised EOB to FWW with CGA. Pt then doffed lower body dressing, CHEN assisted with cleansing buttocks. Pt was educated on how to use dressing stick when donning brief. Pt unable to return demonstration, CHEN assisted. Pt sit-stand from raised EOB to FWW, CHEN assisted hiking brief over hips. After set up pt able to don socks using sock aid. While seated at EOB, pt completed oral hygiene after set up of items required. Pt then EOB-supine, mod assist to adjust B LUE. Max A x2 to adjust hips. Therapy Code Descriptions/Definitions Functional [place] Measure: 0=Not Assessed/NA 4=Minimal Assistance 1=Total Assistance 5=Supervision or Setup 2=Maximal Assistance 6=Modified [place] 3=Moderate Assistance 7=Complete IndependenceSCALE: Activities may be completed with or without assistive devices. 5-Byrbloldfn-ydcnkmk completes the activity by him/herself with no assistance from a helper. 5-Set-up or Clean-up Assistance-helper sets up or cleans up; patient completes activity. [place] assists only prior to or following the activity. 4-Supervision or Touching Assistance-helper provides verbal cues and/or touching/steadying and/or contact guard assistance as patient completes activity. Assistance may be provided throughout the activity or intermittently. 3-Partial/Moderate Assistance-helper does LESS THAN HALF the effort. [place] lifts, holds or supports trunk or limbs, but provides less than half the effort. 2-Substantial/Maximal Assistance-helper does MORE THAN HALF the effort. [place] lifts or holds trunk or limbs and provides more than half the effort. 1-Cusmbxwuz-qfdfot does ALL the effort. Patient does none of the effort to complete the activity. Or, the assistance of 2 or more helpers is required for the patient to complete the activity. If activity was not attempted, code reason: 7-Patient Refused. 9-Not Applicable-not attempted and the patient did not perform the activity before the current illness, exacerbation or injury. 10-Not Attempted due to Environmental Limitations-(lack of equipment, weather restraints, etc.). 88-Not Attempted due to Medical Conditions or Safety Concerns. Oral Hygiene (QC): 5 Bathing Location: L Arm, R Arm, L Upper Leg, R Upper Leg, L Lower Leg (including foot), R Lower Leg (including foot), Chest, Abdomen, Perineal Area Shower/Bathe Self (QC): 3 Lower Body Dressing (QC): 3 On/Off Footwear: 5 Other Treatment While laying supine in bed, pt completed 2 sets 10 reps of 5 B UE red theraband exercises to strengthen B UE for functional daily task. Pt required skilled instruction and resting breaks to complete exercises. After therapy, pt laying in bed. Call light/phone in reach. All needs met. Education OT Patient Education: Exercise program, Modified ADL techniques Teaching Recipient: Patient Teaching Methods: Demonstration, Discussion Response to Teaching: Verbalize Understanding, Return Demonstration OT Short Term Goals Short Term Goals Time Frame: Aug 05, 2020 Eatin Oral hygiene: 5 Toileting hygiene: 3 Shower/bathe self: 3 Upper body dressin Lower body dressin Putting on/taking off footwear: 4 OT Pearl Technician Goals Pearl Technician Goals Time Frame: Aug 12, 2020 Eating (QC): 6 Oral Hygiene (QC): 6 Toileting Hygiene (QC): 6 Shower/Bathe Self (QC): 4 Upper Body Dressing (QC): 6 Lower Body Dressing (QC): 6 On/Off Footwear (QC): 6 Additional Goals: 1-Demonstrate ADL Tasks, 2-Verbalize Understanding, 3- ImproveStrength/Sandra 1=Demonstrate adherence to instructed precautions during ADL tasks. 2=Patient will verbalize/demonstrate understanding of assistive devices/modifications for ADL. 3=Patient will improve strength/tolerance for activity to enable patient to perform ADL's. OT Education/Plan Problem List/Assessment Assessment: Decreased Activ Tolerance, Impaired Funct Balance, Impaired I ADL's, Impaired Self-Care Skills Discharge Recommendations Plan/Recommendations: Continue POC Treatment Plan/Plan of Care Patient would benefit from OT for education, treatment and training to promote independence in ADL's, mobility, safety and/or upper extremity function for ADL's. Plan of Care: ADL Retraining, Functional Mobility, UE Funct Exercise/Act Treatment Duration: Aug 12, 2020 Frequency: At least 5 of 7 days/Wk (IRF) Estimated Hrs Per Day: 1.5 hours per day Agreement: Yes Rehab Potential: Good Time/GCodes Start Time: 09:00 Stop Time: 10:00 Total Time Billed (hr/min): 60 Billed Treatment Time 1 visit-ADL 3 (50 mins) EX 1 (10 mins) VENTURA MILES Aug 03, 2020 09:56
--- NOTE | 2020-08-03 11:00 | NUR ---
PT LEFT THE FLOOR TO GET AN MRI.
[2020-08-03 11:36] LABS: BILIRUBIN,URINE NEGATIVE (NEGATIVE); CLARITY,URINE CLEAR; COLOR,URINE YELLOW; GLUCOSE, URINE (UA) NEGATIVE (NEGATIVE); KETONES,URINE NEGATIVE (NEGATIVE); LEUKOCYTE ESTERASE ,URINE 3+ (NEGATIVE); NITRITE,URINE NEGATIVE (NEGATIVE); PH,URINE 7.5 (5-9); PROTEIN,URINE 2+ (NEGATIVE)
[2020-08-03 11:45] LABS: BACTERIA,URINE FEW /HPF; RBC,URINE >100 /HPF; WBC,URINE 50-100 /HPF
[2020-08-03 11:46] LABS: RENAL EPITHELIAL CELLS,URINE RARE /HPF
--- NOTE | 2020-08-03 11:46 | Progress Note - Urology ---
Progress Note-Urology Progress Notes/Assess & Plan Progress/Assessment & Plan HAS SOME DYSURIA AND PINKISH URINE. CHECK UA ?CULTURE AND START ON MACROBID Final Diagnosis UTI SHASHANK JACOME MD Aug 03, 2020 11:46
--- NOTE | 2020-08-03 11:47 | Physical Therapy Daily Note ---
PT Daily Note-Current Subjective Pt. cries and c/o pain R knee and leg at 9/10 . Pt. asks if there would be any ointment she might be able to apply to her right knee to help with pain. This PER DIEM NURSE will inquire with nurse. Pt. expresses concern about 12 yr old grandson she is raising, misses home. Pain Numeric Pain Scale: 9 Location: Right Location Body Site: Knee (lower thigh) Pain Description: Stabbing Appearance tearful, weepy, Mental Status Patient Orientation: Normal For Age Transfers SCALE: Activities may be completed with or without assistive devices. 7-Nyiuorzbub-lnhiwbf completes the activity by him/herself with no assistance from a helper. 5-Set-up or Clean-up Assistance-helper sets up or cleans up; patient completes activity. [place] assists only prior to or following the activity. 4-Supervision or Touching Assistance-helper provides verbal cues and/or touching/steadying and/or contact guard assistance as patient completes activity. Assistance may be provided throughout the activity or intermittently. 3-Partial/Moderate Assistance-helper does LESS THAN HALF the effort. [place] lifts, holds or supports trunk or limbs, but provides less than half the effort. 2-Substantial/Maximal Assistance-helper does MORE THAN HALF the effort. [place] lifts or holds trunk or limbs and provides more than half the effort. 4-Ipmztdhyh-wjmqqt does ALL the effort. Patient does none of the effort to c omplete the activity. Or, the assistance of 2 or more helpers is required for the patient to complete the activity. If activity was not attempted, code reason: 7-Patient Refused. 9-Not Applicable-not attempted and the patient did not perform the activity before the current illness, exacerbation or injury. 10-Not Attempted due to Environmental Limitations-(lack of equipment, weather restraints, etc.). 88-Not Attempted due to Medical Conditions or Safety Concerns. Roll Left & Right (QC): 6 Lying to Sitting/Side of Bed(Q: 6 Sit to Stand (QC): 5 Chair/Cvl-bu-Jgnxn Xfer(QC): 5 Weight Bearing Full Weight Bearing Full Weight Bearing Gait Training Does the Patient Walk?: Yes Walk 10 feet (QC): 5 Walk 50 ft with 2 Turns(QC): 5 Gait Persons Needed: 1 Gait Assistive Device: FWW maintains NWB well. Pt. ambulated with shoe on left , donned herself and felt this made gait safer, more stable and less likely to wt bear on RLE Wheelchair Training Does the Pt Use a Wheelchair?: Yes Wheel 50 ft with 2 turns (QC): 6 Wheel 150 ft (QC): 6 Type of Wheelchair: Manual needs some instruction and cues for maneuvering in tight spaces . Pt. needs assist to manage leg rest on right Exercises Supine Ex: Ankle pumps, Quad Set, Glut sets, Heel Slides (Left only), Short Arc Quads (left only), Scooting (up in bed indep), Straight leg raise (left only), Hip abd/add (left only) Supine Reps: 20 Seated Therapy Exercises: Ankle pumps (bialt), Sit to stand, Long arc quads (left only), Hip flexion Seated Reps: 15 Treatments pain limits mobility , pt. gives full effort, but appears depressed, Assessment Current Status: Good Progress pain limits function PT Short Term Goals Short Term Goals Time Frame: Aug 05, 2020 Lying to sitting on side of be: 4 Sit to stand: 4 Walk 50 feet with two turns: 4 Walk 150 feet: 4 1 step (curb): 3 PT Usp Goals Circular Knitter Goals PT Usp Goals Time Frame: Aug 19, 2020 Roll Left & Right (QC): 6 Sit to Lying (QC): 6 Lying-Sitting on Side/Bed(QC): 6 Sit to Stand (QC): 6 Chair/Esf-gn-Srqon Xfer(QC): 6 Toilet Transfer (QC): 6 Car Transfer (QC): 6 Does the Patient Walk: Yes Walk 10 feet (QC): 6 Walk 50ft with 2 Turns (QC): 6 Walk 150 ft (QC): 6 Walking 10ft on Uneven Surface: 5 1 Step (curb) (QC): 6 4 Steps (QC): 6 12 Steps (QC): 5 Picking up an Object (QC): 5 Does the Pt use WC or Scooter?: No Wheel 50 feet with 2 turns (QC: 9 Wheel 150 feet: 9 PT Plan Treatment/Plan Treatment Plan: Continue Plan of Care Treatment Plan: Bed Mobility, Education, Functional Activity Sandra, Functional Strength, Group Therapy, Gait, Safety, Therapeutic Exercise, Transfers Treatment Duration: Aug 19, 2020 Frequency: At least 5 of 7 days/Wk (IRF) Estimated Hrs Per Day: 1.5 hours per day Patient and/or Family Agrees t: Yes Safety Risks/Education Patient Education: Gait Training, Transfer Techniques, Correct Positioning, W/C Management, Disease Process, Safety Issues Teaching Recipient: Patient Teaching Methods: Demonstration, Discussion Response to Teaching: Verbalize Understanding, Return Demonstration, Reinforcement Needed Time/GCodes Time In: 1100 Time Out: 1200 Total Billed Treatment Time: 60 Total Billed Treatment 1,EX20m,w/c,10m,GT10m,FA20m LUIS EDUARDO MCKEON PER DIEM NURSE Aug 03, 2020 11:47
--- NOTE | 2020-08-03 13:33 | Physical Therapy Daily Note ---
PT Daily Note-Current Subjective Pt. up n recliner , agrees to gait and sup to sit, sit to sup trials and instruction in gym on Rx table. Pain Numeric Pain Scale: 4 Location: Right Location Body Site: Hip Pain Description: Ache Mental Status Patient Orientation: Normal For Age Attachments: Other-See Comments (radha) Transfers SCALE: Activities may be completed with or without assistive devices. 7-Ohfjzafecn-cnrhleu completes the activity by him/herself with no assistance from a helper. 5-Set-up or Clean-up Assistance-helper sets up or cleans up; patient completes activity. [place] assists only prior to or following the activity. 4-Supervision or Touching Assistance-helper provides verbal cues and/or touching/steadying and/or contact guard assistance as patient completes activity. Assistance may be provided throughout the activity or intermittently. 3-Partial/Moderate Assistance-helper does LESS THAN HALF the effort. [place] lifts, holds or supports trunk or limbs, but provides less than half the effort. 2-Substantial/Maximal Assistance-helper does MORE THAN HALF the effort. [place] lifts or holds trunk or limbs and provides more than half the effort. 5-Urezdioix-txxumf does ALL the effort. Patient does none of the effort to complete the activity. Or, the assistance of 2 or more helpers is required for the patient to complete the activity. If activity was not attempted, code reason: 7-Patient Refused. 9-Not Applicable-not attempted and the patient did not perform the activity before the current illness, exacerbation or injury. 10-Not Attempted due to Environmental Limitations-(lack of equipment, weather restraints, etc.). 88-Not Attempted due to Medical Conditions or Safety Concerns. Roll Left & Right (QC): 4 Sit to Lying (QC): 5 Lying to Sitting/Side of Bed(Q: 5 Sit to Stand (QC): 5 Chair/Sxi-yn-Srhmw Xfer(QC): 5 pt. to gym for TRF training on Rx table (firm surface , better leverage than hospital bed) pt. able to TRF sit to sup with instruction utilizing w/c arm as bed rail x 2 trials with rest breaks, Pt. is anxious but states she felt much more comfortable after this Rx, knowing she is on her way to better TRF skills Weight Bearing Full Weight Bearing Full Weight Bearing Gait Training Does the Patient Walk?: Yes Gait Assistive Device: FWW 40ft x 3 FWW CGA to SBA, w/c to follow, needs rest breaks, c/o fatigue Wheelchair Training Does the Pt Use a Wheelchair?: Yes Wheel 50 ft with 2 turns (QC): 4 Type of Wheelchair: Manual instructed in use of brakes, turning efficiently and steering. Assessment Current Status: Good Progress self limiting at times, gives up , needs much encouragement and instruction PT Short Term Goals Short Term Goals Time Frame: Aug 05, 2020 Lying to sitting on side of be: 4 Sit to stand: 4 Walk 50 feet with two turns: 4 Walk 150 feet: 4 1 step (curb): 3 PT Long-Term Goals Rubber Mixer Goals PT Long-Term Goals Time Frame: Aug 19, 2020 Roll Left & Right (QC): 6 Sit to Lying (QC): 6 Lying-Sitting on Side/Bed(QC): 6 Sit to Stand (QC): 6 Chair/Dwe-dq-Jbcvj Xfer(QC): 6 Toilet Transfer (QC): 6 Car Transfer (QC): 6 Does the Patient Walk: Yes Walk 10 feet (QC): 6 Walk 50ft with 2 Turns (QC): 6 Walk 150 ft (QC): 6 Walking 10ft on Uneven Surface: 5 1 Step (curb) (QC): 6 4 Steps (QC): 6 12 Steps (QC): 5 Picking up an Object (QC): 5 Does the Pt use WC or Scooter?: No Wheel 50 feet with 2 turns (QC: 9 Wheel 150 feet: 9 PT Plan Treatment/Plan Treatment Plan: Continue Plan of Care Treatment Plan: Bed Mobility, Education, Functional Activity Sandra, Functional Strength, Group Therapy, Gait, Safety, Therapeutic Exercise, Transfers Treatment Duration: Aug 19, 2020 Frequency: At least 5 of 7 days/Wk (IRF) Estimated Hrs Per Day: 1.5 hours per day Patient and/or Family Agrees t: Yes Safety Risks/Education Patient Education: Gait Training, Transfer Techniques, Correct Positioning, W/C Management, Disease Process, Safety Issues Teaching Recipient: Patient Teaching Methods: Demonstration, Discussion Response to Teaching: Verbalize Understanding, Return Demonstration, Reinforcement Needed Time/GCodes Time In: 1300 Time Out: 1400 Total Billed Treatment Time: 30 Total Billed Treatment 1,Wc10m,FA20m LUIS EDUARDO MCKEON TELESALES ADVISOR Aug 03, 2020 13:33
--- NOTE | 2020-08-03 14:23 | Occupational Ther Daily Note ---
OT Current Status-Daily Note Subjective Pt sitting in w/c when therapy entered. Pt agreed to OT. No c/o pain reported. Mental Status/Objective Patient Orientation: Person, Place, Time Attachments: IV ADL-Treatment Therapy Code Descriptions/Definitions Functional [place] Measure: 0=Not Assessed/NA 4=Minimal Assistance 1=Total Assistance 5=Supervision or Setup 2=Maximal Assistance 6=Modified [place] 3=Moderate Assistance 7=Complete IndependenceSCALE: Activities may be completed with or without assistive devices. 5-Wqqvepchlf-syfogbj completes the activity by him/herself with no assistance from a helper. 5-Set-up or Clean-up Assistance-helper sets up or cleans up; patient completes activity. [place] assists only prior to or following the activity. 4-Supervision or Touching Assistance-helper provides verbal cues and/or touching/steadying and/or contact guard assistance as patient completes activity. Assistance may be provided throughout the activity or intermittently. 3-Partial/Moderate Assistance-helper does LESS THAN HALF the effort. [place] li fts, holds or supports trunk or limbs, but provides less than half the effort. 2-Substantial/Maximal Assistance-helper does MORE THAN HALF the effort. [place] lifts or holds trunk or limbs and provides more than half the effort. 9-Xjswsnmxz-casxot does ALL the effort. Patient does none of the effort to complete the activity. Or, the assistance of 2 or more helpers is required for the patient to complete the activity. If activity was not attempted, code reason: 7-Patient Refused. 9-Not Applicable-not attempted and the patient did not perform the activity before the current illness, exacerbation or injury. 10-Not Attempted due to Environmental Limitations-(lack of equipment, weather restraints, etc.). 88-Not Attempted due to Medical Conditions or Safety Concerns. Other Treatment Pt taken to gym and completed 10 mins of 25 resistive arm bike exercise to strengthen B UE for functional ADL completion. For the first 5 min pt did forward rotation and last 5 mins pt did backward rotation. Pt requested multiple resting break due to fatigue. Pt required skilled instruction to stay on task. Pt was then taken back to room. Pt requested to stay in w/c. After therapy, pt sitting in w/c. Call light/phone in reach. All needs met. OT Short Term Goals Short Term Goals Time Frame: Aug 05, 2020 Eatin Oral hygiene: 5 Toileting hygiene: 3 Shower/bathe self: 3 Upper body dressin Lower body dressin Putting on/taking off footwear: 4 OT Usp Goals Usp Goals Time Frame: Aug 12, 2020 Eating (QC): 6 Oral Hygiene (QC): 6 Toileting Hygiene (QC): 6 Shower/Bathe Self (QC): 4 Upper Body Dressing (QC): 6 Lower Body Dressing (QC): 6 On/Off Footwear (QC): 6 Additional Goals: 1-Demonstrate ADL Tasks, 2-Verbalize Understanding, 3- ImproveStrength/Sandra 1=Demonstrate adherence to instructed precautions during ADL tasks. 2=Patient will verbalize/demonstrate understanding of assistive devices/modifications for ADL. 3=Patient will improve strength/tolerance for activity to enable patient to perform ADL's. OT Education/Plan Problem List/Assessment Assessment: Decreased Activ Tolerance, Decreased UE Strength, Impaired Funct Balance, Impaired I ADL's, Impaired Self-Care Skills Discharge Recommendations Plan/Recommendations: Continue POC Treatment Plan/Plan of Care Patient would benefit from OT for education, treatment and training to promote independence in ADL's, mobility, safety and/or upper extremity function for ADL's. Plan of Care: ADL Retraining, Functional Mobility, UE Funct Exercise/Act Treatment Duration: Aug 12, 2020 Frequency: At least 5 of 7 days/Wk (IRF) Estimated Hrs Per Day: 1.5 hours per day Agreement: Yes Rehab Potential: Good Time/GCodes Start Time: 13:30 Stop Time: 14:00 Total Time Billed (hr/min): 30 Billed Treatment Time 1 visit-EX 2 (30 mins) VENTURA MILES Aug 03, 2020 14:23
[2020-08-03 16:00] VITALS: BP 124/60
[2020-08-03] MEDS: IMIPRAMINE 25 MG (TOFRANIL) TAB PO SCH (20:49)
[2020-08-03] MEDS: NITROFURANTOIN 100 MG (MACROBID) CAPSULE PO SCH (20:50)
[2020-08-03] MEDS: LIDOCAINE PATCH REMOVAL TP SCH (20:51)
[2020-08-04] MEDS: CATHETER FLUSH 10 ML SYR IV SCH ×3 (05:21→20:40)
[2020-08-04 05:49] VITALS: BP 132/60
[2020-08-04] MEDS: ENOXAPARIN 40 MG/0.4 ML (LOVENOX) SYR SC SCH ×2 (08:39→20:40)
[2020-08-04] MEDS: buPROPion SR 100 MG (WELLBUTRIN SR) TAB PO SCH ×2 (08:39→20:39)
[2020-08-04] MEDS: lisINopril 20 MG (PRINIVIL) TABLET PO SCH (08:39)
[2020-08-04] MEDS: SENNA W/DOCUSATE (SENOKOT S) TABLET PO SCH ×2 (08:39→20:38)
[2020-08-04] MEDS: LIDOCAINE 4% (SALONPAS) PATCH TP SCH (08:39)
[2020-08-04] MEDS: DOCUSATE SODIUM 100 MG (COLACE) CAP PO SCH ×2 (08:40→20:38)
[2020-08-04] MEDS: IRON SUCROSE 200 MG/10 ML (VENOFER) VIAL IV SCH (08:40)
[2020-08-04] MEDS: FUROSEMIDE 20 MG (LASIX) TAB PO SCH (08:40)
[2020-08-04] MEDS: polyethylene glycoL POWDER 17 GM (MIRALAX) PACK PO SCH ×2 (08:40→20:38)
[2020-08-04] MEDS: LEVOTHYROXINE 125 MCG (LEVOTHROID) TABLET PO SCH (08:40)
[2020-08-04] MEDS: PANTOPRAZOLE 20 MG TABLET (PROTONIX) PO SCH (08:40)
[2020-08-04] MEDS: meTOprolol TARTRATE 50 MG (LOPRESSOR) TAB PO SCH ×2 (08:42→20:39)
[2020-08-04] MEDS: NITROFURANTOIN 100 MG (MACROBID) CAPSULE PO SCH ×2 (08:42→20:40)
--- NOTE | 2020-08-04 08:43 | PM&R Progress Note ---
Subjective HPI/CC On Admission Date Seen by Provider: Aug 04, 2020 Time Seen by Provider: 10:00 Subjective/Events-last exam 08/04/20: Pt was too obese to undergo MRI yesterday Will likely need to wait until she can go to higher-level at discharge as an outpatient for MRI Overall doing okay Pseudomonas UTI, awaiting culture Appreciate Dr. Cabrera 08/03/20: MRI of the lumbar spine will be done today with Valium taken 1hr before fo 5mg Tolerating IV iron infusions Overall feels like she is doing well 08/02/20: Patient doing better Spasms noted right back which are profound I reviewed [facility] chart regarding workup for those spasms and it appears that she did not receive an MRI so will order that since this is delaying her recovery and her recent bacteremia will need with and without contrast to be sure there is no seeding of bacteria Nose dry so ordered saline nasal spray CPAP used at bedside and talked about knee braces 08/01/20: Patient doing well today BM Urinary system improved on new meds from Urology Pain controlled 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 07/31/20: at bedside today Flexeril helps back pain Used CPAP last night BM+ No falls Feels improved Fogginess in thought process noted at times Midline placed for IV iron and she has not received iron before IV but 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 Patient settling in RIght back and leg pain improved Worse CPAP last night Dr Cabrera consulted for night time polyuria and incontinence 2+ edema lower legs still KRISTEN wraps placed due to intolerance to GERARDO hose Hgb 10.4 Iron pending Checked meds and labs Conferred with RN Reviewed therapy notes Review of Systems General: Fatigue, Malaise Neurological: Weakness Objective Exam Vital Signs Vital Signs Date Time Temp Pulse Resp B/P (MAP) Pulse Ox O2 Delivery O2 Flow Rate FiO2 08/04/20 16:14 36.7 71 16 130/62 (84) 95 Room Air Capillary Refill : Less Than 3 Seconds General Appearance: No Apparent Distress, WD/WN, Chronically ill, Obese HEENT: PERRL/EOMI, Normal ENT Inspection, Pharynx Normal Neck: Full Range of Motion, Normal Inspection, Non Tender, Supple, Carotid Bruit Respiratory: Chest Non Tender, Lungs Clear, Normal Breath Sounds, No Accessory Muscle Use, No Respiratory Distress Cardiovascular: Regular Rate, Rhythm, No Edema, No Gallop, No JVD, No Murmur, Normal Peripheral Pulses Gastrointestinal: Normal Bowel Sounds, No Organomegaly, No Pulsatile Mass, Non Tender, Soft Back: Normal Inspection, Decreased Range of Motion, Muscle Spasm, Vertebral Tenderness Extremity: Normal Capillary Refill, Normal Inspection, Normal Range of Motion, Non Tender, No Calf Tenderness, No Pedal Edema Neurologic/Psychiatric: Alert, Oriented x3, No Motor/Sensory Deficits, Normal Mood/Affect, copywriter II-XII Norm as Tested, Abnormal Gait, Motor Weakness (legs 4/5) Skin: Normal Color, Warm/Dry Lymphatic: No Adenopathy Results/Procedures Lab Patient resulted labs reviewed. FIM Transfers Therapy Code Descriptions/Definitions Functional [place] Measure: 0=Not Assessed/NA 4=Minimal Assistance 1=Total Assistance 5=Supervision or Setup 2=Maximal Assistance 6=Modified [place] 3=Moderate Assistance 7=Complete IndependenceSCALE: Activities may be completed with or without assistive devices. 6-Gopghyefcr-cnciwhh completes the activity by him/herself with no assistance from a helper. 5-Set-up or Clean-up Assistance-helper sets up or cleans up; patient completes activity. [place] assists only prior to or following the activity. 4-Supervision or Touching Assistance-helper provides verbal cues and/or touching/steadying and/or contact guard assistance as patient completes activity. Assistance may be provided throughout the activity or intermittently. 3-Partial/Moderate Assistance-helper does LESS THAN HALF the effort. [place] lifts, holds or supports trunk or limbs, but provides less than half the effort. 2-Substantial/Maximal Assistance-helper does MORE THAN HALF the effort. [place] lifts or holds trunk or limbs and provides more than half the effort. 4-Amkkhijaq-dexbyk does ALL the effort. Patient does none of the effort to complete the activity. Or, the assistance of 2 or more helpers is required for the patient to complete the activity. If activity was not attempted, code reason: 7-Patient Refused. 9-Not Applicable-not attempted and the patient did not perform the activity before the current illness, exacerbation or injury. 10-Not Attempted due to Environmental Limitations-(lack of equipment, weather restraints, etc.). 88-Not Attempted due to Medical Conditions or Safety Concerns. Roll Left to Right (QC): 4 Sit to Lying (QC): 5 Sit to Stand (QC): 5 Chair/Zjo-bu-Qjnlf Xfer(QC): 5 Car Transfer (QC): 3 Gait Training Does the Patient Walk?: Yes Walk 10 feet (QC): 5 Walk 50 ft with 2 Turns(QC): 5 Walk 150 ft (QC): 88 (unable/unsafe to attempt to walk further than 50 ft. ) Walking 10ft/uneven surface-QC: 3 (min assist for balance and safety. ) Gait Persons Needed: 1 Gait Assistive Device: FWW Wheelchair Training Does the Pt Use a Wheelchair?: Yes Wheel 50 ft with 2 turns (QC): 4 Wheel 150 ft (QC): 6 Type of Wheelchair: Manual Stair Training 1 Step (curb) (QC): 88 (approached step but pt unable to safely attempt; fall risk noted. ) 4 Steps (QC): 88 12 Steps (QC): 88 Balance Picking up an Object (QC): 88 (functional weakness and balance deficit limit safety to attempt this task) ADL-Treatment Eating (QC): 6 (Using clinical judgement, pt able to complete own meal set up and use regular utensils to eat.) Oral Hygiene (QC): 5 Bathing Location: L Arm, R Arm, L Upper Leg, R Upper Leg, L Lower Leg (including foot), R Lower Leg (including foot), Chest, Abdomen, Perineal Area Shower/Bathe Self (QC): 3 Upper Body Dressing (QC): 5 Lower Body Dressing (QC): 3 On/Off Footwear (QC): 5 Toileting Hygiene (QC): 1 Toilet Transfer (QC): 4 Assessment/Plan Assessment and Plan Assess & Plan/Chief Complaint Assessment: Severe back pain with debility after 20 days hospital course at [facility] MSSA bacteremia HTN HLP Thrombocytosis Obesity GRUPO on CPAP Plan: Monitor labs Check iron level IRF protocol Fall risk 07/31/20: IV iron infusion ordered after midline Pain control IRF protocol 08/01/20: Continue IV iron infusions via midline Improved overall Pain controlled 08/02/20: MRI L-spine with and without IV contrast since Sharon had not completed one due to bacteremia issues taking precedence and this is delaying recovery and participation in her therapy. CPAP use nightly and slept well Knee braces per PT tomorrow recs as requested 08/03/20: Obtain MRI today at the lumbar spine Continue IV iron infusions Could not tolerate MRI due to anxiety even after Valium given and could not fit due to obesity 08/04/20: Obtain MRI as an outpatient Monitor pain Rehab protocol UCx pending (1) Debility (2) Back pain (3) Type 2 myocardial infarction (4) GRUPO on CPAP (5) Obesity, morbid, BMI 40.0-49.9 (6) Edema (7) MSSA (methicillin susceptible Staphylococcus aureus) septicemia KRYSTIAN LLANES DO Aug 04, 2020 08:43
--- NOTE | 2020-08-04 09:30 | Physical Therapy Daily Note ---
PT Daily Note-Current Subjective Pt sitting in recliner upon arrival. Pt agrees to PT. Pain Numeric Pain Scale: 5-Moderate Pain Location: Right Location Body Site: Thigh Pain Description: Ache Mental Status Patient Orientation: Person, Place, Situation Transfers SCALE: Activities may be completed with or without assistive devices. 8-Azdtxcuaek-taqbwhf completes the activity by him/herself with no assistance from a helper. 5-Set-up or Clean-up Assistance-helper sets up or cleans up; patient completes activity. [place] assists only prior to or following the activity. 4-Supervision or Touching Assistance-helper provides verbal cues and/or touching/steadying and/or contact guard assistance as patient completes activity. Assistance may be provided throughout the activity or intermittently. 3-Partial/Moderate Assistance-helper does LESS THAN HALF the effort. [place] lifts, holds or supports trunk or limbs, but provides less than half the effort. 2-Substantial/Maximal Assistance-helper does MORE THAN HALF the effort. [place] lifts or holds trunk or limbs and provides more than half the effort. 0-Jighybitu-cdwtob does ALL the effort. Patient does none of the effort to complete the activity. Or, the assistance of 2 or more helpers is required for the patient to complete the activity. If activity was not attempted, code reason: 7-Patient Refused. 9-Not Applicable-not attempted and the patient did not perform the activity before the current illness, exacerbation or injury. 10-Not Attempted due to Environmental Limitations-(lack of equipment, weather restraints, etc.). 88-Not Attempted due to Medical Conditions or Safety Concerns. Sit to Stand (QC): 5 Toilet Transfer (QC): 5 Weight Bearing Full Weight Bearing Full Weight Bearing Gait Training Does the Patient Walk?: Yes Distance: 15' x2 Walk 10 feet (QC): 5 Gait Persons Needed: 1 Gait Assistive Device: FWW Slow carson with amb. Exercises Seated Therapy Exercises: Ankle pumps, Sit to stand, Long arc quads, Hip flexion, Kicking activity, Hip abd/add, Glut set Seated Reps: 15 Treatments Completes Seated Ex as Nurse prepares and gives meds. TF to standing to use BR, needing assist for pericare. Dons new brief then TF to standing, amb. back to recliner to rest. Dr Miles checks pt during session. Pt resting at end of tx. Asks & discusses progress and what can be worked on/needed over the next week. All needs met, call light and phone in hand. Assessment Current Status: Fair Progress Still fatiguing quickly but improving with strength of transfers. PT Short Term Goals Short Term Goals Time Frame: Aug 05, 2020 Lying to sitting on side of be: 4 Sit to stand: 4 Walk 50 feet with two turns: 4 Walk 150 feet: 4 1 step (curb): 3 PT Neurology Stroke Physician Goals Care Home Goals PT Care Home Goals Time Frame: Aug 19, 2020 Roll Left & Right (QC): 6 Sit to Lying (QC): 6 Lying-Sitting on Side/Bed(QC): 6 Sit to Stand (QC): 6 Chair/Tmk-oj-Rblrg Xfer(QC): 6 Toilet Transfer (QC): 6 Car Transfer (QC): 6 Does the Patient Walk: Yes Walk 10 feet (QC): 6 Walk 50ft with 2 Turns (QC): 6 Walk 150 ft (QC): 6 Walking 10ft on Uneven Surface: 5 1 Step (curb) (QC): 6 4 Steps (QC): 6 12 Steps (QC): 5 Picking up an Object (QC): 5 Does the Pt use WC or Scooter?: No Wheel 50 feet with 2 turns (QC: 9 Wheel 150 feet: 9 PT Plan Problem List Problem List: Activity Tolerance, Gait Treatment/Plan Treatment Plan: Continue Plan of Care Treatment Plan: Bed Mobility, Education, Functional Activity Sandra, Functional Strength, Group Therapy, Gait, Safety, Therapeutic Exercise, Transfers Treatment Duration: Aug 19, 2020 Frequency: At least 5 of 7 days/Wk (IRF) Estimated Hrs Per Day: 1.5 hours per day Patient and/or Family Agrees t: Yes Safety Risks/Education Patient Education: Correct Positioning, Safety Issues Teaching Recipient: Patient Teaching Methods: Discussion Response to Teaching: Verbalize Understanding Time/GCodes Time In: 815 Time Out: 915 Total Billed Treatment Time: 60 Total Billed Treatment 1, EX (20m), FA x2 (30m) & GT (10m) JASMEET FLAHERTY C DEVELOPER Aug 04, 2020 09:30
--- NOTE | 2020-08-04 09:51 | Progress Note - Urology ---
Progress Note-Urology Progress Notes/Assess & Plan Progress/Assessment & Plan UC SHOWED PSEUDO, SENSITIVITIES PENDING. ALLERGIC TO QUINOLONES. AWAIT RESULTS Final Diagnosis UTI SHASHANK JACOME MD Aug 04, 2020 09:51
[2020-08-04] MEDS: PHENAZOPYRIDINE 100 MG (PYRIDIUM) TABLET PO SCH ×3 (10:55→18:16)
--- NOTE | 2020-08-04 11:31 | Occupational Ther Daily Note ---
OT Current Status-Daily Note Subjective Pt alert, sitting in recliner when OT entered. Pt agreed to therapy. No c/o pain reported. Pt's mother present in room. Mental Status/Objective Patient Orientation: Person, Place, Time, Situation Attachments: IV ADL-Treatment Pt agreed to taking shower. Pt sit-stand from raised recliner to FWW with CGA. Pt then ambulated to shower bench in the bathroom using FWW with CGA. CHEN assisted with wrapping midline. Pt sit-stand from shower bench using grab rails to doff brief. Pt then using dressing stick to thread B feet out brief. Pt used dressing stick to doff socks. Pt required shower bench, long handled sponge, hand held shower head, grab rails to complete shower. Pt was able to cleanse upper arms, upper/lower legs, abdomen, chest, and emilia area. Due to pt fatigue, requested assist to cleanse buttocks. After shower, pt SPT from shower bench to w/c with CGA. Set up for dressing by gathering clothing and placing on FWW. Pt donned shirt by self. Pt reached for lower body dressing on walker and thread B feet using dressing stick. Pt then sit-stand from w/c using grab rails with CGA to hike briefs and pants, pt hiked briefs over hips but became fatigued and sat back down before hiking pants. Pt requested resting break. Pt sit-stand from w/c using grab rails with CGA and requested CHEN to hike pants. Pt reached for socks on walker and donned independently using sock aid. Pt wheeled back to room and requested to stay in w/c. After therapy, pt sitting in w/c. Call light/phone in reach. All needs met. Therapy Code Descriptions/Definitions Functional [place] Measure: 0=Not Assessed/NA 4=Minimal Assistance 1=Total Assistance 5=Supervision or Setup 2=Maximal Assistance 6=Modified [place] 3=Moderate Assistance 7=Complete IndependenceSCALE: Activities may be completed with or without assistive devices. 9-Gbbhwcluxj-yhgfxsg completes the activity by him/herself with no assistance from a helper. 5-Set-up or Clean-up Assistance-helper sets up or cleans up; patient completes activity. [place] assists only prior to or following the activity. 4-Supervision or Touching Assistance-helper provides verbal cues and/or touching/steadying and/or contact guard assistance as patient completes activity. Assistance may be provided throughout the activity or intermittently. 3-Partial/Moderate Assistance-helper does LESS THAN HALF the effort. [place] lifts, holds or supports trunk or limbs, but provides less than half the effort. 2-Substantial/Maximal Assistance-helper does MORE THAN HALF the effort. [place] lifts or holds trunk or limbs and provides more than half the effort. 6-Hhwyuscpt-dbyqur does ALL the effort. Patient does none of the effort to complete the activity. Or, the assistance of 2 or more helpers is required for the patient to complete the activity. If activity was not attempted, code reason: 7-Patient Refused. 9-Not Applicable-not attempted and the patient did not perform the activity be fore the current illness, exacerbation or injury. 10-Not Attempted due to Environmental Limitations-(lack of equipment, weather restraints, etc.). 88-Not Attempted due to Medical Conditions or Safety Concerns. Bathing Location: L Arm, R Arm, L Upper Leg, R Upper Leg, L Lower Leg (including foot), R Lower Leg (including foot), Chest, Abdomen, Perineal Area Shower/Bathe Self (QC): 3 Upper Body Dressing (QC): 6 Lower Body Dressing (QC): 3 On/Off Footwear: 6 Pt had an hour break between OT and PT treatments. Pt fatigues more quickly, which contributes to pt self-limiting herself and not allowing her push her self to complete ADLs. OT Short Term Goals Short Term Goals Time Frame: Aug 05, 2020 Eatin Oral hygiene: 5 Toileting hygiene: 3 Shower/bathe self: 3 Upper body dressin Lower body dressin Putting on/taking off footwear: 4 OT Advertising Account Executive Goals Advertising Account Executive Goals Time Frame: Aug 12, 2020 Eating (QC): 6 Oral Hygiene (QC): 6 Toileting Hygiene (QC): 6 Shower/Bathe Self (QC): 4 Upper Body Dressing (QC): 6 Lower Body Dressing (QC): 6 On/Off Footwear (QC): 6 Additional Goals: 1-Demonstrate ADL Tasks, 2-Verbalize Understanding, 3- ImproveStrength/Sandra 1=Demonstrate adherence to instructed precautions during ADL tasks. 2=Patient will verbalize/demonstrate understanding of assistive devices/modifications for ADL. 3=Patient will improve strength/tolerance for activity to enable patient to perform ADL's. OT Education/Plan Problem List/Assessment Assessment: Decreased Activ Tolerance, Impaired Funct Balance, Impaired I ADL's, Impaired Self-Care Skills Discharge Recommendations Plan/Recommendations: Continue POC Treatment Plan/Plan of Care Patient would benefit from OT for education, treatment and training to promote independence in ADL's, mobility, safety and/or upper extremity function for ADL's. Plan of Care: ADL Retraining, Functional Mobility, UE Funct Exercise/Act Treatment Duration: Aug 12, 2020 Frequency: At least 5 of 7 days/Wk (IRF) Estimated Hrs Per Day: 1.5 hours per day Agreement: Yes Rehab Potential: Good Time/GCodes Start Time: 10:00 Stop Time: 11:00 Total Time Billed (hr/min): 60 Billed Treatment Time 1 visit-ADL 4 (60 mins) VENTURA MILES Aug 04, 2020 11:31
--- NOTE | 2020-08-04 14:06 | Occupational Ther Daily Note ---
OT Current Status-Daily Note Subjective Pt on toilet when OT entered. No c/o pain reported. Mental Status/Objective Patient Orientation: Person, Place, Time, Situation Attachments: IV ADL-Treatment Pt handed bath wipe to complete toilet hygiene. Pt states, "I am not able to reach that far." CHEN assisted with toilet hygiene. Pt threads B feet through lower body dressing using percussion instrument tuner. Pt sit-stand from toilet to FWW with CGA. Pt states that she feels light headed, assist with hiking briefs and pants over hips. Pt then ambulates back to bed using FWW with CGA. Transferred to EOB with CGA. While at EOB pt completed oral hygiene by self, after set up of materials required. Pt then transfers from EOB-supine, assist with bringing R leg onto bed. HOB tilted downward, pt used LE and UE to pull herself towards HOB. Therapy Code Descriptions/Definitions Functional [place] Measure: 0=Not Assessed/NA 4=Minimal Assistance 1=Total Assistance 5=Supervision or Setup 2=Maximal Assistance 6=Modified [place] 3=Moderate Assistance 7=Complete IndependenceSCALE: Activities may be completed with or without assistive devices. 3-Sdsunwbjxi-hidvmgn completes the activity by him/herself with no assistance from a helper. 5-Set-up or Clean-up Assistance-helper sets up or cleans up; patient completes activity. [employer] assists only prior to or following the activity. 4-Supervision or Touching Assistance-helper provides verbal cues and/or touchi ng/steadying and/or contact guard assistance as patient completes activity. Assistance may be provided throughout the activity or intermittently. 3-Partial/Moderate Assistance-helper does LESS THAN HALF the effort. [employer] lifts, holds or supports trunk or limbs, but provides less than half the effort. 2-Substantial/Maximal Assistance-helper does MORE THAN HALF the effort. [employer] lifts or holds trunk or limbs and provides more than half the effort. 4-Vtscthlgh-dkguzh does ALL the effort. Patient does none of the effort to complete the activity. Or, the assistance of 2 or more helpers is required for the patient to complete the activity. If activity was not attempted, code reason: 7-Patient Refused. 9-Not Applicable-not attempted and the patient did not perform the activity before the current illness, exacerbation or injury. 10-Not Attempted due to Environmental Limitations-(lack of equipment, weather restraints, etc.). 88-Not Attempted due to Medical Conditions or Safety Concerns. Oral Hygiene (QC): 5 Other Treatment Pt completed 1 set x10 of 5 B UE red theraband exercises for strengthening UE for functional ADL completion. Pt required skilled instruction of exercises and was able to return demonstration. After therapy, pt laying in bed. Call light/phone in reach. All needs met. OT Short Term Goals Short Term Goals Time Frame: Aug 05, 2020 Eatin Oral hygiene: 5 Toileting hygiene: 3 Shower/bathe self: 3 Upper body dressin Lower body dressin Putting on/taking off footwear: 4 OT Church Warden Goals Church Warden Goals Time Frame: Aug 12, 2020 Eating (QC): 6 Oral Hygiene (QC): 6 Toileting Hygiene (QC): 6 Shower/Bathe Self (QC): 4 Upper Body Dressing (QC): 6 Lower Body Dressing (QC): 6 On/Off Footwear (QC): 6 Additional Goals: 1-Demonstrate ADL Tasks, 2-Verbalize Understanding, 3-ImproveStrength/Sandra 1=Demonstrate adherence to instructed precautions during ADL tasks. 2=Patient will verbalize/demonstrate understanding of assistive devices/modifications for ADL. 3=Patient will improve strength/tolerance for activity to enable patient to perform ADL's. OT Education/Plan Problem List/Assessment Assessment: Decreased Activ Tolerance, Impaired Funct Balance, Impaired I ADL's, Impaired Self-Care Skills Discharge Recommendations Plan/Recommendations: Continue POC Treatment Plan/Plan of Care Patient would benefit from OT for education, treatment and training to promote independence in ADL's, mobility, safety and/or upper extremity function for ADL's. Plan of Care: ADL Retraining, Functional Mobility, UE Funct Exercise/Act Treatment Duration: Aug 12, 2020 Frequency: At least 5 of 7 days/Wk (IRF) Estimated Hrs Per Day: 1.5 hours per day Agreement: Yes Rehab Potential: Good Time/GCodes Start Time: 13:30 Stop Time: 14:00 Total Time Billed (hr/min): 30 Billed Treatment Time 1 visit - ADL 1 (20 mins) EX 1 (10 mins) VENTURA MILES Aug 04, 2020 14:06
--- NOTE | 2020-08-04 14:18 | Physical Therapy Daily Note ---
PT Daily Note-Current Subjective Pt sitting up in bed after lunch upon arrival. Pt ate very little. Pt agrees to PT. Pain Numeric Pain Scale: 5-Moderate Pain Location: Right Location Body Site: Thigh Pain Description: Pressure, Tightness Mental Status Patient Orientation: Person, Place, Situation Transfers SCALE: Activities may be completed with or without assistive devices. 8-Lzhfcrysix-xuvprup completes the activity by him/herself with no assistance from a helper. 5-Set-up or Clean-up Assistance-helper sets up or cleans up; patient completes activity. [place] assists only prior to or following the activity. 4-Supervision or Touching Assistance-helper provides verbal cues and/or touching/steadying and/or contact guard assistance as patient completes activity. Assistance may be provided throughout the activity or intermittently. 3-Partial/Moderate Assistance-helper does LESS THAN HALF the effort. [place] lifts, holds or supports trunk or limbs, but provides less than half the effort. 2-Substantial/Maximal Assistance-helper does MORE THAN HALF the effort. [place] lifts or holds trunk or limbs and provides more than half the effort. 8-Oobpfqwlb-mgstbl does ALL the effort. Patient does none of the effort to complete the activity. Or, the assistance of 2 or more helpers is required for the patient to complete the activity. If activity was not attempted, code reason: 7-Patient Refused. 9-Not Applicable-not attempted and the patient did not perform the activity before the current illness, exacerbation or injury. 10-Not Attempted due to Environmental Limitations-(lack of equipment, weather restraints, etc.). 88-Not Attempted due to Medical Conditions or Safety Concerns. Lying to Sitting/Side of Bed(Q: 4 Sit to Stand (QC): 5 Toilet Transfer (QC): 5 Weight Bearing Full Weight Bearing Full Weight Bearing Gait Training Does the Patient Walk?: Yes Distance: 15' Walk 10 feet (QC): 5 Gait Persons Needed: 1 Gait Assistive Device: FWW Treatments TF from Supine to EOB to standing, amb. to BR. After finishing, pt is assisted in pericare. Pt returns to EOB due to fatigue. OT arrives for tx. All needs met. Assessment Current Status: Fair Progress Pt fatigues easily and needs RB and assist with pericare since she can't reach. PT Short Term Goals Short Term Goals Time Frame: Aug 05, 2020 Lying to sitting on side of be: 4 Sit to stand: 4 Walk 50 feet with two turns: 4 Walk 150 feet: 4 1 step (curb): 3 PT Dial Lathe Operator Goals [facility] Goals PT [facility]it[facility] Goals Time Frame: Aug 19, 2020 Roll Left & Right (QC): 6 Sit to Lying (QC): 6 Lying-Sitting on Side/Bed(QC): 6 Sit to Stand (QC): 6 Chair/Fvb-gr-Axjjy Xfer(QC): 6 Toilet Transfer (QC): 6 Car Transfer (QC): 6 Does the Patient Walk: Yes Walk 10 feet (QC): 6 Walk 50ft with 2 Turns (QC): 6 Walk 150 ft (QC): 6 Walking 10ft on Uneven Surface: 5 1 Step (curb) (QC): 6 4 Steps (QC): 6 12 Steps (QC): 5 Picking up an Object (QC): 5 Does the Pt use WC or Scooter?: No Wheel 50 feet with 2 turns (QC: 9 Wheel 150 feet: 9 PT Plan Problem List Problem List: Activity Tolerance, Gait Treatment/Plan Treatment Plan: Continue Plan of Care Treatment Plan: Bed Mobility, Education, Functional Activity Sandra, Functional Strength, Group Therapy, Gait, Safety, Therapeutic Exercise, Transfers Treatment Duration: Aug 19, 2020 Frequency: At least 5 of 7 days/Wk (IRF) Estimated Hrs Per Day: 1.5 hours per day Patient and/or Family Agrees t: Yes Safety Risks/Education Patient Education: Transfer Techniques, Correct Positioning, Safety Issues Teaching Recipient: Patient Teaching Methods: Discussion Response to Teaching: Verbalize Understanding Time/GCodes Time In: 1300 Time Out: 1330 Total Billed Treatment Time: 30 Total Billed Treatment 1, FA x2 (30m) JASMEET FLAHERTY VENEER SUPERVISOR Aug 04, 2020 14:18
[2020-08-04 16:14] VITALS: BP 130/62
[2020-08-04] MEDS: IMIPRAMINE 25 MG (TOFRANIL) TAB PO SCH (20:39)
[2020-08-04] MEDS: LIDOCAINE PATCH REMOVAL TP SCH (20:40)
[2020-08-05] MEDS: CATHETER FLUSH 10 ML SYR IV SCH ×3 (05:00→20:28)
[2020-08-05 06:27] VITALS: BP 129/60
[2020-08-05 08:00] VITALS: BP 128/60
--- NOTE | 2020-08-05 08:08 | Occupational Ther Daily Note ---
OT Current Status-Daily Note Subjective Pt sitting in recliner when OT entered. Pt agreed to therapy. Pain mentioned when she urinates, nursing notified and stated that she is already on medication for it. Mental Status/Objective Patient Orientation: Person, Place, Time, Situation ADL-Treatment Pt declined shower or sponge bath and changing clothing. Pt requested to use the bathroom. Pt sit-stand from recliner to FWW with CGA. Pt ambulated to toilet in bathroom using FWW with CGA. Transferred to toilet with CGA. Pt completed toilet hygiene by self using toilet aid tongs, CHEN assisted to check if pt cleanse thoroughly and pt was able to use aid adequately. Pt sit-stand from toilet using FWW and hiked lower body dressing over hips with CGA. Pt then ambulated to sink to complete oral hygiene. Pt stated she is fatigued and would like to sit down. Pt completed oral hygiene independently while sitting in w/c. Sit-stand from w/c-FWW and ambulated to gym with CGA. Therapy Code Descriptions/Definitions Functional [place] Measure: 0=Not Assessed/NA 4=Minimal Assistance 1=Total Assistance 5=Supervision or Setup 2=Maximal Assistance 6=Modified [place] 3=Moderate Assistance 7=Complete IndependenceSCALE: Activities may be completed with or without assistive devices. 9-Zxaolxkskk-gsoubrd completes the activity by him/herself with no assistance from a helper. 5-Set-up or Clean-up Assistance-helper sets up or cleans up; patient completes activity. [place] assists only prior to or following the activity. 4-Supervision or Touching Assistance-helper provides verbal cues and/or to uching/steadying and/or contact guard assistance as patient completes activity. Assistance may be provided throughout the activity or intermittently. 3-Partial/Moderate Assistance-helper does LESS THAN HALF the effort. [place] lifts, holds or supports trunk or limbs, but provides less than half the effort. 2-Substantial/Maximal Assistance-helper does MORE THAN HALF the effort. [place] lifts or holds trunk or limbs and provides more than half the effort. 8-Qdpfpdupz-luwlng does ALL the effort. Patient does none of the effort to complete the activity. Or, the assistance of 2 or more helpers is required for the patient to complete the activity. If activity was not attempted, code reason: 7-Patient Refused. 9-Not Applicable-not attempted and the patient did not perform the activity before the current illness, exacerbation or injury. 10-Not Attempted due to Environmental Limitations-(lack of equipment, weather restraints, etc.). 88-Not Attempted due to Medical Conditions or Safety Concerns. Oral Hygiene (QC): 6 Toileting Hygiene (QC): 4 Toilet Transfer (QC): 4 Other Treatment Once in gym, pt completed 15 mins of 15 resistance B UE strengthening task on arm bike for functional ADL completion. Pt required multiple resting breaks due to fatigue. Pt then propelled back to room. Pt then SPT from w/c to recliner with CGA. After therapy, pt sitting in recliner, call/light phone in reach. All needs met. Education OT Patient Education: Use of adapted equipment Teaching Recipient: Patient Teaching Methods: Demonstration, Discussion Response to Teaching: Verbalize Understanding, Return Demonstration OT Short Term Goals Short Term Goals Time Frame: Aug 05, 2020 Eatin Oral hygiene: 5 Toileting hygiene: 3 Shower/bathe self: 3 Upper body dressin Lower body dressin Putting on/taking off footwear: 4 OT Air And Hydronic Balancing Technician Goals Air And Hydronic Balancing Technician Goals Time Frame: Aug 12, 2020 Eating (QC): 6 Oral Hygiene (QC): 6 Toileting Hygiene (QC): 6 Shower/Bathe Self (QC): 4 Upper Body Dressing (QC): 6 Lower Body Dressing (QC): 6 On/Off Footwear (QC): 6 Additional Goals: 1-Demonstrate ADL Tasks, 2-Verbalize Understanding, 3- ImproveStrength/Sandra 1=Demonstrate adherence to instructed precautions during ADL tasks. 2=Patient will verbalize/demonstrate understanding of assistive devices/modifications for ADL. 3=Patient will improve strength/tolerance for activity to enable patient to perform ADL's. OT Education/Plan Problem List/Assessment Assessment: Decreased Activ Tolerance, Decreased UE Strength, Impaired Funct Balance, Impaired I ADL's, Impaired Self-Care Skills Discharge Recommendations Plan/Recommendations: Continue POC Treatment Plan/Plan of Care Patient would benefit from OT for education, treatment and training to promote independence in ADL's, mobility, safety and/or upper extremity function for ADL's. Plan of Care: ADL Retraining, Functional Mobility, UE Funct Exercise/Act Treatment Duration: Aug 12, 2020 Frequency: At least 5 of 7 days/Wk (IRF) Estimated Hrs Per Day: 1.5 hours per day Agreement: Yes Rehab Potential: Good Time/GCodes Start Time: 07:05 Stop Time: 08:05 Total Time Billed (hr/min): 60 Billed Treatment Time 1 visit-ADL 3 (40 mins) EX 1 (20 mins) VENTURA MILES Aug 05, 2020 08:08
[2020-08-05] MEDS: buPROPion SR 100 MG (WELLBUTRIN SR) TAB PO SCH ×2 (08:44→20:28)
[2020-08-05] MEDS: PHENAZOPYRIDINE 100 MG (PYRIDIUM) TABLET PO SCH ×3 (08:44→18:37)
[2020-08-05] MEDS: NITROFURANTOIN 100 MG (MACROBID) CAPSULE PO SCH (08:44)
[2020-08-05] MEDS: FUROSEMIDE 20 MG (LASIX) TAB PO SCH (08:45)
[2020-08-05] MEDS: meTOprolol TARTRATE 50 MG (LOPRESSOR) TAB PO SCH ×2 (08:45→20:28)
[2020-08-05] MEDS: PANTOPRAZOLE 20 MG TABLET (PROTONIX) PO SCH (08:45)
[2020-08-05] MEDS: lisINopril 20 MG (PRINIVIL) TABLET PO SCH (08:45)
[2020-08-05] MEDS: LEVOTHYROXINE 125 MCG (LEVOTHROID) TABLET PO SCH (08:45)
[2020-08-05] MEDS: SENNA W/DOCUSATE (SENOKOT S) TABLET PO SCH ×2 (08:48→19:50)
[2020-08-05] MEDS: ENOXAPARIN 40 MG/0.4 ML (LOVENOX) SYR SC SCH ×2 (08:48→20:28)
[2020-08-05] MEDS: polyethylene glycoL POWDER 17 GM (MIRALAX) PACK PO SCH ×2 (08:48→19:50)
[2020-08-05] MEDS: DOCUSATE SODIUM 100 MG (COLACE) CAP PO SCH ×2 (08:48→19:50)
[2020-08-05] MEDS: LIDOCAINE 4% (SALONPAS) PATCH TP SCH (08:48)
--- NOTE | 2020-08-05 09:10 | PM&R Progress Note ---
Subjective HPI/CC On Admission Date Seen by Provider: Aug 05, 2020 Time Seen by Provider: 09:00 Subjective/Events-last exam 08/05/20: Pseudomonas UTI will be treated with Cefepime Swallowing is okay Pyridium really does not help her bladder Midline will be replaced because Cefepime needs to be completed IV iron infusions will also be restarted 08/04/20: Pt was too obese to undergo MRI yesterday Will likely need to wait until she can go to higher-level at discharge as an outpatient for MRI Overall doing okay Pseudomonas UTI, awaiting culture Appreciate Dr. Cabrera 08/03/20: MRI of the lumbar spine will be done today with Valium taken 1hr before fo 5mg Tolerating IV iron infusions Overall feels like she is doing well 08/02/20: Patient doing better Spasms noted right back which are profound I reviewed [facility] chart regarding workup for those spasms and it appears that she did not receive an MRI so will order that since this is delaying her recovery and her recent bacteremia will need with and without contrast to be sure there is no seeding of bacteria Nose dry so ordered saline nasal spray CPAP used at bedside and talked about knee braces 08/01/20: Patient doing well today BM Urinary system improved on new meds from Urology Pain controlled No significant concerns from 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 07/31/20: at bedside today Flexeril helps back pain Used CPAP last night BM+ No falls Feels improved Fogginess in thought process noted at times Midline placed for IV iron and she has not received iron before IV but has anemia meterman Patient settling in RIght back and leg pain improved Worse CPAP last night Dr Cabrera consulted for night time polyuria and incontinence 2+ edema lower legs still KRISTEN wraps placed due to intolerance to GERARDO hose Hgb 10.4 Iron pending Checked meds and labs Conferred with RN Reviewed therapy notes Review of Systems General: Fatigue, Malaise Neurological: Weakness Objective Exam Vital Signs Vital Signs Date Time Temp Pulse Resp B/P (MAP) Pulse Ox O2 Delivery O2 Flow Rate FiO2 08/05/20 17:27 35.8 72 16 117/53 (74) 96 Room Air Capillary Refill : Less Than 3 Seconds General Appearance: No Apparent Distress, WD/WN, Chronically ill, Obese HEENT: PERRL/EOMI, Normal ENT Inspection, Pharynx Normal Neck: Full Range of Motion, Normal Inspection, Non Tender, Supple, Carotid Bruit Respiratory: Chest Non Tender, Lungs Clear, Normal Breath Sounds, No Accessory Muscle Use, No Respiratory Distress Cardiovascular: Regular Rate, Rhythm, No Edema, No Gallop, No JVD, No Murmur, Normal Peripheral Pulses Gastrointestinal: Normal Bowel Sounds, No Organomegaly, No Pulsatile Mass, Non Tender, Soft Back: Normal Inspection, Decreased Range of Motion, Muscle Spasm, Vertebral Tenderness Extremity: Normal Capillary Refill, Normal Inspection, Normal Range of Motion, Non Tender, No Calf Tenderness, No Pedal Edema Neurologic/Psychiatric: Alert, Oriented x3, No Motor/Sensory Deficits, Normal Mood/Affect, substitute crossing guard II-XII Norm as Tested, Abnormal Gait, Motor Weakness (legs 4/5) Skin: Normal Color, Warm/Dry Lymphatic: No Adenopathy Results/Procedures Lab Patient resulted labs reviewed. FIM Transfers Therapy Code Descriptions/Definitions Functional [place] Measure: 0=Not Assessed/NA 4=Minimal Assistance 1=Total Assistance 5=Supervision or Setup 2=Maximal Assistance 6=Modified [place] 3=Moderate Assistance 7=Complete IndependenceSCALE: Activities may be completed with or without assistive devices. 7-Lbcelipbse-jbsfppp completes the activity by him/herself with no assistance from a helper. 5-Set-up or Clean-up Assistance-helper sets up or cleans up; patient completes activity. [place] assists only prior to or following the activity. 4-Supervision or Touching Assistance-helper provides verbal cues and/or touching/steadying and/or contact guard assistance as patient completes activity. Assistance may be provided throughout the activity or intermittently. 3-Partial/Moderate Assistance-helper does LESS THAN HALF the effort. [place] lifts, holds or supports trunk or limbs, but provides less than half the effort. 2-Substantial/Maximal Assistance-helper does MORE THAN HALF the effort. [place] lifts or holds trunk or limbs and provides more than half the effort. 7-Wwcjxeqef-ugxoae does ALL the effort. Patient does none of the effort to complete the activity. Or, the assistance of 2 or more helpers is required for the patient to complete the activity. If activity was not attempted, code reason: 7-Patient Refused. 9-Not Applicable-not attempted and the patient did not perform the activity before the current illness, exacerbation or injury. 10-Not Attempted due to Environmental Limitations-(lack of equipment, weather restraints, etc.). 88-Not Attempted due to Medical Conditions or Safety Concerns. Roll Left to Right (QC): 4 Sit to Lying (QC): 5 Sit to Stand (QC): 5 Chair/Okn-qj-Vlgqh Xfer(QC): 5 Car Transfer (QC): 3 Gait Training Does the Patient Walk?: Yes Distance: 15' Walk 10 feet (QC): 5 Walk 50 ft with 2 Turns(QC): 5 Walk 150 ft (QC): 88 (unable/unsafe to attempt to walk further than 50 ft. ) Walking 10ft/uneven surface-QC: 3 (min assist for balance and safety. ) Gait Persons Needed: 1 Gait Assistive Device: FWW Wheelchair Training Wheel 50 ft with 2 turns (QC): 4 Wheel 150 ft (QC): 6 Stair Training 1 Step (curb) (QC): 88 (approached step but pt unable to safely attempt; fall risk noted. ) 4 Steps (QC): 88 12 Steps (QC): 88 Balance Picking up an Object (QC): 88 (functional weakness and balance deficit limit safety to attempt this task) ADL-Treatment Eating (QC): 6 (Using clinical judgement, pt able to complete own meal set up and use regular utensils to eat.) Oral Hygiene (QC): 6 Bathing Location: L Arm, R Arm, L Upper Leg, R Upper Leg, L Lower Leg (including foot), R Lower Leg (including foot), Chest, Abdomen, Perineal Area Shower/Bathe Self (QC): 3 Upper Body Dressing (QC): 6 Lower Body Dressing (QC): 3 On/Off Footwear (QC): 6 Toileting Hygiene (QC): 1 Toilet Transfer (QC): 4 Assessment/Plan Assessment and Plan Assess & Plan/Chief Complaint Assessment: Severe back pain with debility after 20 days hospital course at [facility] MSSA bacteremia HTN HLP Thrombocytosis Obesity GRUPO on CPAP Plan: Monitor labs Check iron level IRF protocol Fall risk 07/31/20: IV iron infusion ordered after midline Pain control IRF protocol 08/01/20: Continue IV iron infusions via midline Improved overall Pain controlled 08/02/20: MRI L-spine with and without IV contrast since [facility] had not completed one due to bacteremia issues taking precedence and this is delaying recovery and participation in her therapy. CPAP use nightly and slept well Knee braces per PT tomorrow recs as requested 08/03/20: Obtain MRI today at the lumbar spine Continue IV iron infusions Could not tolerate MRI due to anxiety even after Valium given and could not fit due to obesity 08/04/20: Obtain MRI as an outpatient Monitor pain Rehab protocol UCx pending 08/05/20: Start Cefepime for pseudomonas UTI Replace mid-line Start iron infusions since restarting mid line Monitor loose stools (1) Debility (2) Back pain (3) Type 2 myocardial infarction (4) GRUPO on CPAP (5) Obesity, morbid, BMI 40.0-49.9 (6) Edema (7) MSSA (methicillin susceptible Staphylococcus aureus) septicemia KRYSTIAN LLANES DO Aug 05, 2020 09:10
--- NOTE | 2020-08-05 10:43 | Physical Therapy Daily Note ---
PT Daily Note-Current Subjective Pt. agrees to Rx. States she is feeling better. Her main c/o pain is bilateral knees. Pt. states as she reflects she has not been very active since the pandemic as she use to walk in to the grocery store and for several months she has been ordering and picking it up. Pt. hesitant to walk any functional distance with this ASSISTANT DEAN, asking to sit to rest and stating she isnt anxious to go home as long as she is this tired. This ASSISTANT DEAN explaining that strength and endurance will only come if she pushes herself a bit . Pt. wanted to try her knee braces she brought with her . Pt. donned them indep but the velcro in worn out and they would not stay on in stance and fell off during gait before she got out of her room. Pt. states she doesnt want to walk very far because the popping in her knees bothers her "but they arent really hurting that bad" Pain Numeric Pain Scale: 3 Location: Left Location Body Site: Knee Pain Description: Ache Comment: auudible crepitus bilat knees Mental Status Patient Orientation: Normal For Age Transfers SCALE: Activities may be completed with or without assistive devices. 6-Thucdvsrvq-ubbtdgb completes the activity by him/herself with no assistance from a helper. 5-Set-up or Clean-up Assistance-helper sets up or cleans up; patient completes activity. [place] assists only prior to or following the activity. 4-Supervision or Touching Assistance-helper provides verbal cues and/or touching/steadying and/or contact guard assistance as patient completes activity. Assistance may be provided throughout the activity or intermittently. 3-Partial/Moderate Assistance-helper does LESS THAN HALF the effort. [place] lifts, holds or supports trunk or limbs, but provides less than half the effort. 2-Substantial/Maximal Assistance-helper does MORE THAN HALF the effort. [place] lifts or holds trunk or limbs and provides more than half the effort. 0-Lorivpnjh-zrdogs does ALL the effort. Patient does none of the effort to complete the activity. Or, the assistance of 2 or more helpers is required for the patient to complete the activity. If activity was not attempted, code reason: 7-Patient Refused. 9-Not Applicable-not attempted and the patient did not perform the activity before the current illness, exacerbation or injury. 10-Not Attempted due to Environmental Limitations-(lack of equipment, weather restraints, etc.). 88-Not Attempted due to Medical Conditions or Safety Concerns. Roll Left & Right (QC): 5 Sit to Lying (QC): 5 Lying to Sitting/Side of Bed(Q: 5 Sit to Stand (QC): 6 Chair/Cvq-qf-Ralvw Xfer(QC): 6 Toilet Transfer (QC): 6 pt. needs instruction for sit to sup and sup to sit, pt. seems fearful of falling. requires considerable effort to lift LEs on to bed/Rx table Weight Bearing Full Weight Bearing Full Weight Bearing Gait Training Does the Patient Walk?: Yes Walk 10 feet (QC): 5 Walk 50 ft with 2 Turns(QC): 5 Gait Persons Needed: 1 Gait Assistive Device: FWW pt. heavy wt bearing on FWW secondary to weak LEs and knees Exercises Supine Ex: Bridging, Ankle pumps, Quad Set, Rolling, Glut sets, Heel Slides, Short Arc Quads, Scooting, Straight leg raise, Hip abd/add Supine Reps: 15 Seated Therapy Exercises: Ankle pumps, Sit to stand, Long arc quads, Hip flexion, Hip abd/add Seated Reps: 12 pt. required assist bilat for SLRs, knee flexion limited L>R, knee flexion stretches done , approx L ROM 5 to 60 degrees, R ROM 5 to 85 degrees NuStep Minutes: 9 NuStep Workload: 4 Treatments nustep without use of hands to increase LE strength, Assessment Current Status: Good Progress increased sup to sit and sit to sup function, requires great effort, indep SLR x 6 on left , required mod assist on right PT Short Term Goals Short Term Goals Time Frame: Aug 05, 2020 Lying to sitting on side of be: 4 Sit to stand: 4 Walk 50 feet with two turns: 4 Walk 150 feet: 4 1 step (curb): 3 PT Spa Therapist Goals Senior Living Goals PT Spa Therapist Goals Time Frame: Aug 19, 2020 Roll Left & Right (QC): 6 Sit to Lying (QC): 6 Lying-Sitting on Side/Bed(QC): 6 Sit to Stand (QC): 6 Chair/Cwa-km-Lbxco Xfer(QC): 6 Toilet Transfer (QC): 6 Car Transfer (QC): 6 Does the Patient Walk: Yes Walk 10 feet (QC): 6 Walk 50ft with 2 Turns (QC): 6 Walk 150 ft (QC): 6 Walking 10ft on Uneven Surface: 5 1 Step (curb) (QC): 6 4 Steps (QC): 6 12 Steps (QC): 5 Picking up an Object (QC): 5 Does the Pt use WC or Scooter?: No Wheel 50 feet with 2 turns (QC: 9 Wheel 150 feet: 9 PT Plan Treatment/Plan Treatment Plan: Continue Plan of Care Treatment Plan: Bed Mobility, Education, Functional Activity Sandra, Functional Strength, Group Therapy, Gait, Safety, Therapeutic Exercise, Transfers Treatment Duration: Aug 19, 2020 Frequency: At least 5 of 7 days/Wk (IRF) Estimated Hrs Per Day: 1.5 hours per day Patient and/or Family Agrees t: Yes Safety Risks/Education Patient Education: Gait Training, Transfer Techniques, Correct Positioning, Disease Process, Safety Issues Teaching Recipient: Patient Teaching Methods: Demonstration, Discussion Response to Teaching: Verbalize Understanding, Return Demonstration, Reinforcement Needed Time/GCodes Time In: 945 Time Out: 1045 Total Billed Treatment Time: 60 Total Billed Treatment 1,EX30m,GT15m,FA15m LUIS EDUARDO MCKEON ASSISTANT DEAN Aug 05, 2020 10:43
--- NOTE | 2020-08-05 11:22 | Progress Note - Urology ---
Progress Note-Urology Progress Notes/Assess & Plan Progress/Assessment & Plan START ON CEFEPIME AND WATCH FOR ALLERGIC REACTIONS, HER ALLERGY TO PCN WAS JUST A RASH, NO ANAPHYLAXIS Final Diagnosis UTI SHASHANK JACOME MD Aug 05, 2020 11:22
--- NOTE | 2020-08-05 14:00 | NUR ---
NEW MIDLINE HAS BEEN INSERTED INTO LEFT UPPER ARM. UNABLE TO GET BLOOD RETURN AND PATIENT AT FIRST COMPLAINED OF BURNING WHEN ANTIBIOTIC INSERTED. CHECKED WITH DAY NURSE AND SHE FEELS NEW LINE SHOULD BE FINE. AGAIN, GAVE ANTIBIOTIC SLOWLY AND APPEARED TO GO IN WITHOUT DIFFICULTY. NO SWELLING OR REDNESS AT SITE. HAS ALLERGIC REACTION TO PCN A RASH. TO MONITOR CEFEPIME INFUSION: NO REACTION NOTED. PATIENT HAS HAD A POOR APPETITE SINCE ADMISSION TO [facility]OS[facility]ITALS ON 07-11-20. STATES HAS LOST 40 POUNDS. JORGE WIRE SPOOLER HERE TO TALK TO PATIENT.
[2020-08-05] MEDS: CEFEPIME INJECTION 1,000 MG in WATER (STERILE) FOR INJECTION 10 ML IV SCH ×3 (14:16→23:53)
--- NOTE | 2020-08-05 14:30 | NUR ---
"RD ASSESSMENT PMHx: hypercholesterolemia; hypothyroidism; HTN PT INTERACTION: Pt was awake and pleasant during nutrition follow-up. Pt states she has been eating poorly since last assessment, stating that she doesn't have an appetite. Note avg PO intake 28% x4d, per chart review. Pt states no issues with nausea, vomiting, constipation, or diarrhea since last assessment. Note last BM was 08/05, and pt currently on bowel regimen of colace BID; senna BID; and miralax BID, per chart review. ABNORMAL NUTRITION-RELATED LAB VALUES LOW: Ca 8.2; alb 2.8 HIGH: Est. kcal needs: 1375 kcal | 25 kcal/kg IBW, based on IBW of 54.5 kg (120#) Est. Pro needs: 65 g Pro | 1.2 g Pro/kg IBW PES STATEMENT: Inadequate oral intake (NI-2.1) related to loss of appetite as evidenced by pt interview | avg PO intake 28% x4d INTERVENTION: Continue with current diet order of Regular diet. Add Ensure Clear (vary) to meals TID, for increased kcal intake. Provides 240 kcal and 8 g Pro per serving. Encouraged pt to eat when able. Will continue to follow and reassess as pt needs, intake, and status change. Sage Castro, MS, RD, LD"
--- NOTE | 2020-08-05 14:40 | Therapy Group Daily Note ---
Therapy Daily Group Note Patient Education Topic Home Safety, Home Safety, Exercises, Other List Below (ARU description/expectation ) Session Ratio (pt:therapist): 4:1 Goal of Session: Education on ARU Expectations, Energy Conservation Tech., Home Safety Strategies, UE/LE Strengthing, Other (list) (ARU description/expectation ) Goal Met for this Session: Yes Pt Benefit of Group: Contributions to Others, F/U Use of Strategies @Home, Increased Functional Safety, Increased Functional Strength, Recognition of Peers, Socialization Other/Notes Pt ambulated using FWW for OT/PT group. Group consisted of LE/UE seated exercises, ARU description/expectations, and home safety. Pt participated in introduction(name, where you are from, and random question), actively listened to peers.Engaged in seated LE/UE exercises. Pt acknowledged understanding of educational topics by giving own examples. Pt ambulated back to room. After group, pt laying in bed. Call light/phone in reach. All needs met. Start Time: 12:50 Stop Time: 14:15 Total Billed Treatment Time: 85 Total Billed Treatment 1, GRP VENTURA MILES Aug 05, 2020 14:40
[2020-08-05 17:27] VITALS: BP 117/53
[2020-08-05] MEDS: IMIPRAMINE 25 MG (TOFRANIL) TAB PO SCH (20:28)
[2020-08-05] MEDS: MELATONIN 3 MG TABLET PO PRN (20:28)
[2020-08-05] MEDS: LIDOCAINE PATCH REMOVAL TP SCH (20:28)
--- NOTE | 2020-08-06 05:29 | PM&R Progress Note ---
Subjective HPI/CC On Admission Date Seen by Provider: Aug 06, 2020 Time Seen by Provider: 10:00 Subjective/Events-last exam 08/06/20: Midline is causing issues so will have that evaluated Cefepime and Venofer maintained through her IV so it is required Bowels moved and doing well from that aspect Pseudomonas UTI causing discomfort 08/05/20: Pseudomonas UTI will be treated with Cefepime Swallowing is okay Pyridium really does not help her bladder Midline will be replaced because Cefepime needs to be completed IV iron infusions will also be restarted 08/04/20: Pt was too obese to undergo MRI yesterday Will likely need to wait until she can go to higher-level at discharge as an outpatient for MRI Overall doing okay Pseudomonas UTI, awaiting culture Appreciate Dr. Cabrera 08/03/20: MRI of the lumbar spine will be done today with Valium taken 1hr before fo 5mg Tolerating IV iron infusions Overall feels like she is doing well 08/02/20: Patient doing better Spasms noted right back which are profound I reviewed [facility] chart regarding workup for those spasms and it appears that she did not receive an MRI so will order that since this is delaying her recovery and her recent bacteremia will need with and without contrast to be sure there is no seeding of bacteria Nose dry so ordered saline nasal spray CPAP used at bedside and talked about knee braces 08/01/20: Patient doing well today BM Urinary system improved on new meds from Urology Pain controlled 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 07/31/20: at bedside today Flexeril helps back pain Used CPAP last night BM+ No falls Feels improved Fogginess in thought process noted at times Midline placed for IV iron and she has not received iron before IV but has anemia rn long term care Patient settling in RIght back and leg pain improved Worse CPAP last night Dr Cabrera consulted for night time polyuria and incontinence 2+ edema lower legs still KRISTEN wraps placed due to intolerance to GERARDO hose Hgb 10.4 Iron pending Checked meds and labs Conferred with RN Reviewed therapy notes Review of Systems General: Fatigue, Malaise Musculoskeletal: back pain, leg pain Objective Exam Vital Signs Vital Signs Date Time Temp Pulse Resp B/P (MAP) Pulse Ox O2 Delivery O2 Flow Rate FiO2 08/06/20 20:10 Room Air 08/06/20 17:18 36.1 71 16 123/58 (37) 93 Capillary Refill : Less Than 3 Seconds General Appearance: No Apparent Distress, WD/WN, Chronically ill, Obese HEENT: PERRL/EOMI, Normal ENT Inspection, Pharynx Normal Neck: Full Range of Motion, Normal Inspection, Non Tender, Supple, Carotid Bruit Respiratory: Chest Non Tender, Lungs Clear, Normal Breath Sounds, No Accessory Muscle Use, No Respiratory Distress Cardiovascular: Regular Rate, Rhythm, No Edema, No Gallop, No JVD, No Murmur, Normal Peripheral Pulses Gastrointestinal: Normal Bowel Sounds, No Organomegaly, No Pulsatile Mass, Non Tender, Soft Back: Normal Inspection, Decreased Range of Motion, Muscle Spasm, Vertebral Tenderness Extremity: Normal Capillary Refill, Normal Inspection, Normal Range of Motion, Non Tender, No Calf Tenderness, No Pedal Edema Neurologic/Psychiatric: Alert, Oriented x3, No Motor/Sensory Deficits, Normal Mood/Affect, esthetics instructor II-XII Norm as Tested, Abnormal Gait, Motor Weakness Skin: Normal Color, Warm/Dry Lymphatic: No Adenopathy Results/Procedures Lab Patient resulted labs reviewed. FIM Transfers Therapy Code Descriptions/Definitions Functional [place] Measure: 0=Not Assessed/NA 4=Minimal Assistance 1=Total Assistance 5=Supervision or Setup 2=Maximal Assistance 6=Modified [place] 3=Moderate Assistance 7=Complete IndependenceSCALE: Activities may be completed with or without assistive devices. 0-Gubocjsmvq-fohkvbi completes the activity by him/herself with no assistance from a helper. 5-Set-up or Clean-up Assistance-helper sets up or cleans up; patient completes activity. [place] assists only prior to or following the activity. 4-Supervision or Touching Assistance-helper provides verbal cues and/or touching/steadying and/or contact guard assistance as patient completes activity. Assistance may be provided throughout the activity or intermittently. 3-Partial/Moderate Assistance-helper does LESS THAN HALF the effort. [place] lifts, holds or supports trunk or limbs, but provides less than half the effort. 2-Substantial/Maximal Assistance-helper does MORE THAN HALF the effort. [place] lifts or holds trunk or limbs and provides more than half the effort. 3-Lwiklrjcr-emzhnj does ALL the effort. Patient does none of the effort to complete the activity. Or, the assistance of 2 or more helpers is required for the patient to complete the activity. If activity was not attempted, code reason: 7-Patient Refused. 9-Not Applicable-not attempted and the patient did not perform the activity before the current illness, exacerbation or injury. 10-Not Attempted due to Environmental Limitations-(lack of equipment, weather restraints, etc.). 88-Not Attempted due to Medical Conditions or Safety Concerns. Roll Left to Right (QC): 5 Sit to Lying (QC): 5 Sit to Stand (QC): 6 Chair/Ysv-ka-Nwkfo Xfer(QC): 6 Car Transfer (QC): 3 Gait Training Does the Patient Walk?: Yes Distance: 15' Walk 10 feet (QC): 5 Walk 50 ft with 2 Turns(QC): 5 Walk 150 ft (QC): 88 (unable/unsafe to attempt to walk further than 50 ft. ) Walking 10ft/uneven surface-QC: 3 (min assist for balance and safety. ) Gait Persons Needed: 1 Gait Assistive Device: FWW Wheelchair Training Does the Pt Use a Wheelchair?: No Wheel 50 ft with 2 turns (QC): 4 Wheel 150 ft (QC): 6 Stair Training 1 Step (curb) (QC): 88 (approached step but pt unable to safely attempt; fall risk noted. ) 4 Steps (QC): 88 12 Steps (QC): 88 Balance Picking up an Object (QC): 88 (functional weakness and balance deficit limit safety to attempt this task) ADL-Treatment Eating (QC): 6 (Using clinical judgement, pt able to complete own meal set up and use regular utensils to eat.) Oral Hygiene (QC): 6 Bathing Location: L Arm, R Arm, L Upper Leg, R Upper Leg, L Lower Leg (including foot), R Lower Leg (including foot), Chest, Abdomen, Perineal Area Shower/Bathe Self (QC): 3 Upper Body Dressing (QC): 6 Lower Body Dressing (QC): 3 On/Off Footwear (QC): 6 Toileting Hygiene (QC): 4 Toilet Transfer (QC): 4 Assessment/Plan Assessment and Plan Assess & Plan/Chief Complaint Assessment: Severe back pain with debility after 20 days hospital course at [facility] MSSA bacteremia HTN HLP Thrombocytosis Obesity GRUPO on CPAP Plan: Monitor labs Check iron level IRF protocol Fall risk 07/31/20: IV iron infusion ordered after midline Pain control IRF protocol 08/01/20: Continue IV iron infusions via midline Improved overall Pain controlled 08/02/20: MRI L-spine with and without IV contrast since [facility] had not completed one due to bacteremia issues taking precedence and this is delaying recovery and participation in her therapy. CPAP use nightly and slept well Knee braces per PT tomorrow recs as requested 08/03/20: Obtain MRI today at the lumbar spine Continue IV iron infusions Could not tolerate MRI due to anxiety even after Valium given and could not fit due to obesity 08/04/20: Obtain MRI as an outpatient Monitor pain Rehab protocol UCx pending 08/05/20: Start Cefepime for pseudomonas UTI Replace mid-line Start iron infusions since restarting mid line Monitor loose stools 08/06/20: IV abx Iron infusions Monitor pain (1) Debility (2) Back pain (3) Type 2 myocardial infarction (4) GRUPO on CPAP (5) Obesity, morbid, BMI 40.0-49.9 (6) Edema (7) MSSA (methicillin susceptible Staphylococcus aureus) septicemia KRYSTIAN LLANES DO Aug 06, 2020 05:28
[2020-08-06 05:57] VITALS: BP 108/58
[2020-08-06] MEDS: CATHETER FLUSH 10 ML SYR IV SCH ×3 (06:25→20:36)
[2020-08-06] MEDS: CEFEPIME INJECTION 1,000 MG in WATER (STERILE) FOR INJECTION 10 ML IV SCH ×4 (06:25→23:51)
--- NOTE | 2020-08-06 08:50 | Occupational Ther Daily Note ---
OT Current Status-Daily Note Subjective Pt alert, sitting in recliner. Pt agreed to therapy. No c/o pain reported. Mental Status/Objective Patient Orientation: Person, Place, Time, Situation Attachments: IV ADL-Treatment Pt agreed to taking shower. Pt sit-stand from raised recliner to FWW with CGA. Pt ambulated to shower bench in bathroom with SBA. Pt doffed upper by self and lower body dressing with supervision. Required dressing stick to thread B feet out of lower body dressing and doff socks. Pt required shower bench, hand held shower head, grabbars, long handled sponge to complete shower. Pt was able to cleanse B UE, chest, abdomen, upper/lower legs, emilia area, and SBA when cleansing buttocks. After shower, pt SPT from shower bench to w/c with CGA. After set up, pt able to don shirt. After set up, pt able to thread B feet through lower body dressing. While standing, pt able to hike lower body dressing over hips with CGA. After set up, pt able to don socks using sock aid. Pt wheeled to sink and completed oral hygiene sitting, independently. Pt then wheeled to room, SPT from w/c to recliner, CGA. Therapy Code Descriptions/Definitions Functional [place] Measure: 0=Not Assessed/NA 4=Minimal Assistance 1=Total Assistance 5=Supervision or Setup 2=Maximal Assistance 6=Modified [place] 3=Moderate Assistance 7=Complete IndependenceSCALE: Activities may be completed with or without assistive devices. 3-Fgyadbcanr-gvhozrc completes the activity by him/herself with no assistance from a helper. 5-Set-up or Clean-up Assistance-helper sets up or cleans up; patient completes activity. [place] assists only prior to or following the activity. 4-Supervision or Touching Assistance-helper provides verbal cues and/or touching/steadying and/or contact guard assistance as patient completes activity. Assistance may be provided throughout the activity or intermittently. 3-Partial/Moderate Assistance-helper does LESS THAN HALF the effort. [place] lifts, holds or supports trunk or limbs, but provides less than half the effort. 2-Substantial/Maximal Assistance-helper does MORE THAN HALF the effort. [place] lifts or holds trunk or limbs and provides more than half the effort. 1-Trqjtnfhw-tgvoqg does ALL the effort. Patient does none of the effort to complete the activity. Or, the assistance of 2 or more helpers is required for the patient to complete the activity. If activity was not attempted, code reason: 7-Patient Refused. 9-Not Applicable-not attempted and the patient did not perform the activity before the current illness, exacerbation or injury. 10-Not Attempted due to Environmental Limitations-(lack of equipment, weather restraints, etc.). 88-Not Attempted due to Medical Conditions or Safety Concerns. Oral Hygiene (QC): 6 Bathing Location: L Arm, R Arm, L Upper Leg, R Upper Leg, L Lower Leg (including foot), R Lower Leg (including foot), Chest, Abdomen, Buttocks (SBA), Perineal Area Shower/Bathe Self (QC): 4 Upper Body Dressing (QC): 5 Lower Body Dressing (QC): 4 On/Off Footwear: 5 Other Treatment Pt completed 3 sets x10 reps of 5 red B UE exercises to strengthen UE for safe and functional daily task. Pt required skilled instruction for exercise and rest ing break after each set, due to fatigue. After therapy, pt sitting in recliner. Call light/phone in reach. All needs met. Education OT Patient Education: Exercise program Teaching Recipient: Patient Teaching Methods: Demonstration, Discussion Response to Teaching: Verbalize Understanding, Return Demonstration OT Short Term Goals Short Term Goals Time Frame: Aug 05, 2020 Eatin Oral hygiene: 5 Toileting hygiene: 3 Shower/bathe self: 3 Upper body dressin Lower body dressin Putting on/taking off footwear: 4 OT Mule Driver Goals Jail Goals Time Frame: Aug 12, 2020 Eating (QC): 6 Oral Hygiene (QC): 6 Toileting Hygiene (QC): 6 Shower/Bathe Self (QC): 4 Upper Body Dressing (QC): 6 Lower Body Dressing (QC): 6 On/Off Footwear (QC): 6 Additional Goals: 1-Demonstrate ADL Tasks, 2-Verbalize Understanding, 3- ImproveStrength/Sandra 1=Demonstrate adherence to instructed precautions during ADL tasks. 2=Patient will verbalize/demonstrate understanding of assistive devices/modifications for ADL. 3=Patient will improve strength/tolerance for activity to enable patient to perform ADL's. OT Education/Plan Problem List/Assessment Assessment: Decreased Activ Tolerance, Impaired Funct Balance, Impaired I ADL's, Impaired Self-Care Skills Discharge Recommendations Plan/Recommendations: Continue POC Treatment Plan/Plan of Care Patient would benefit from OT for education, treatment and training to promote independence in ADL's, mobility, safety and/or upper extremity function for ADL's. Plan of Care: ADL Retraining, Functional Mobility, UE Funct Exercise/Act Treatment Duration: Aug 12, 2020 Frequency: At least 5 of 7 days/Wk (IRF) Estimated Hrs Per Day: 1.5 hours per day Agreement: Yes Rehab Potential: Good Time/GCodes Start Time: 07:15 Stop Time: 08:45 Total Time Billed (hr/min): 90 Billed Treatment Time 1 visit-ADL 4 (60 mins) EX 2 (30 mins) VENTURA MILES Aug 06, 2020 08:50
[2020-08-06] MEDS: LEVOTHYROXINE 125 MCG (LEVOTHROID) TABLET PO SCH (08:51)
[2020-08-06] MEDS: lisINopril 20 MG (PRINIVIL) TABLET PO SCH (08:51)
[2020-08-06] MEDS: buPROPion SR 100 MG (WELLBUTRIN SR) TAB PO SCH ×2 (08:51→20:35)
[2020-08-06] MEDS: meTOprolol TARTRATE 50 MG (LOPRESSOR) TAB PO SCH ×2 (08:51→20:35)
[2020-08-06] MEDS: PHENAZOPYRIDINE 100 MG (PYRIDIUM) TABLET PO SCH ×3 (08:51→18:04)
[2020-08-06] MEDS: PANTOPRAZOLE 20 MG TABLET (PROTONIX) PO SCH (08:51)
[2020-08-06] MEDS: FUROSEMIDE 20 MG (LASIX) TAB PO SCH (08:51)
[2020-08-06] MEDS: CYCLOBENZAPRINE 10 MG (FLEXERIL) TAB PO PRN (08:52)
[2020-08-06] MEDS: ENOXAPARIN 40 MG/0.4 ML (LOVENOX) SYR SC SCH ×2 (08:54→20:35)
[2020-08-06] MEDS: LIDOCAINE 4% (SALONPAS) PATCH TP SCH (08:54)
[2020-08-06] MEDS: IRON SUCROSE 200 MG/10 ML (VENOFER) VIAL IV SCH (08:54)
[2020-08-06] MEDS: SENNA W/DOCUSATE (SENOKOT S) TABLET PO SCH ×2 (09:29→20:49)
[2020-08-06] MEDS: DOCUSATE SODIUM 100 MG (COLACE) CAP PO SCH ×2 (09:29→20:49)
[2020-08-06] MEDS: polyethylene glycoL POWDER 17 GM (MIRALAX) PACK PO SCH ×2 (09:29→20:49)
[2020-08-06] MEDS ORDERED: DULO60CA59 PO (09:46)
[2020-08-06] MEDS ORDERED: LISI10TA2 PO (09:46)
--- NOTE | 2020-08-06 10:37 | NUR ---
Patient complained of burning during Iron infusion. Infusion stopped and line flushed. No blood return. Physician notified. PICC RN notified and will come assess line today.
--- NOTE | 2020-08-06 11:09 | Physical Therapy Daily Note ---
PT Daily Note-Current Subjective Pt sitting in recliner upon arrival. Pt declines needing to use BR and agrees to PT. Pain Numeric Pain Scale: 5-Moderate Pain Location: Lower Location Body Site: Back Pain Description: Ache, Tightness Comment: Pt reports pain in back as well as L arm at IV site, Nurse aware. Mental Status Patient Orientation: Person, Place, Situation Attachments: IV Transfers SCALE: Activities may be completed with or without assistive devices. 5-Yhvrxeyyej-uaiseby completes the activity by him/herself with no assistance from a helper. 5-Set-up or Clean-up Assistance-helper sets up or cleans up; patient completes activity. [place] assists only prior to or following the activity. 4-Supervision or Touching Assistance-helper provides verbal cues and/or touching/steadying and/or contact guard assistance as patient completes activity. Assistance may be provided throughout the activity or intermittently. 3-Partial/Moderate Assistance-helper does LESS THAN HALF the effort. [place] lifts, holds or supports trunk or limbs, but provides less than half the effort. 2-Substantial/Maximal Assistance-helper does MORE THAN HALF the effort. [place] lifts or holds trunk or limbs and provides more than half the effort. 5-Djxbmygcz-fhlegs does ALL the effort. Patient does none of the effort to complete the activity. Or, the assistance of 2 or more helpers is required for the patient to complete the activity. If activity was not attempted, code reason: 7-Patient Refused. 9-Not Applicable-not attempted and the patient did not perform the activity before the current illness, exacerbation or injury. 10-Not Attempted due to Environmental Limitations-(lack of equipment, weather restraints, etc.). 88-Not Attempted due to Medical Conditions or Safety Concerns. Sit to Lying (QC): 4 Lying to Sitting/Side of Bed(Q: 2 Sit to Stand (QC): 5 Weight Bearing Full Weight Bearing Full Weight Bearing Gait Training Does the Patient Walk?: Yes Distance: 150' x2 Walk 10 feet (QC): 5 Walk 50 ft with 2 Turns(QC): 5 Walk 150 ft (QC): 5 Gait Persons Needed: 1 Gait Assistive Device: FWW Exercises Supine Ex: Rolling, Glut sets, Short Arc Quads Supine Reps: 15 Seated Therapy Exercises: Ankle pumps, Long arc quads, Hip flexion, Kicking activity Seated Reps: 15 Treatments TF to standing and amb. in hallway. Pt completes Seated EX at EOM then Supine with bolster under knees for more comfort. Pt attempts both log roll and sitting to transfer to EOM but took several attempts, ending in ANTITANK ASSAULT GUNNER sitting pt up. Pt amb. in hallway then returns to room to rest Supine in bed with all needs met, call light in hand. Assessment Current Status: Fair Progress Pt continues to self limit due to perceived pain and weakness. ANTITANK ASSAULT GUNNER continues to encourage pt to push self for better progress. PT Short Term Goals Short Term Goals Time Frame: Aug 05, 2020 Lying to sitting on side of be: 4 Sit to stand: 4 Walk 50 feet with two turns: 4 Walk 150 feet: 4 1 step (curb): 3 PT Drawer Maker Goals Drawer Maker Goals PT Drawer Maker Goals Time Frame: Aug 19, 2020 Roll Left & Right (QC): 6 Sit to Lying (QC): 6 Lying-Sitting on Side/Bed(QC): 6 Sit to Stand (QC): 6 Chair/Ehx-fb-Hqoul Xfer(QC): 6 Toilet Transfer (QC): 6 Car Transfer (QC): 6 Does the Patient Walk: Yes Walk 10 feet (QC): 6 Walk 50ft with 2 Turns (QC): 6 Walk 150 ft (QC): 6 Walking 10ft on Uneven Surface: 5 1 Step (curb) (QC): 6 4 Steps (QC): 6 12 Steps (QC): 5 Picking up an Object (QC): 5 Does the Pt use WC or Scooter?: No Wheel 50 feet with 2 turns (QC: 9 Wheel 150 feet: 9 PT Plan Problem List Problem List: Activity Tolerance, Functional Strength, Transfer Treatment/Plan Treatment Plan: Continue Plan of Care Treatment Plan: Bed Mobility, Education, Functional Activity Sandra, Functional Strength, Group Therapy, Gait, Safety, Therapeutic Exercise, Transfers Treatment Duration: Aug 19, 2020 Frequency: At least 5 of 7 days/Wk (IRF) Estimated Hrs Per Day: 1.5 hours per day Patient and/or Family Agrees t: Yes Safety Risks/Education Patient Education: Gait Training, Transfer Techniques, Correct Positioning, Safety Issues Teaching Recipient: Patient Teaching Methods: Discussion Response to Teaching: Reinforcement Needed Time/GCodes Time In: 1000 Time Out: 1100 Total Billed Treatment Time: 60 Total Billed Treatment 1, GT (15m), EX (20m), FA x2 (25m) JASMEET FLAHERTY ANTITANK ASSAULT GUNNER Aug 06, 2020 11:09
--- NOTE | 2020-08-06 11:20 | Progress Note - Urology ---
Progress Note-Urology Progress Notes/Assess & Plan Progress/Assessment & Plan TOLERATES FORTAZ WELL. DYSURIA GONE Final Diagnosis UTI SHASHANK JACOME MD Aug 06, 2020 11:20
--- NOTE | 2020-08-06 13:57 | NUR ---
CM/SS PATIENT CARE CONFERENCE Reviewed Summary with patient, she is in agreement with target discharge of 08/11/20. Continued with discharge planning. Patient's will be working but she has her daughter and friends within close proximity that she could call if needed. Patient verbalized confidence she can be alone knowing help is within close distance, and discharge is still 4 days away for continued therapy to maximize independence. DME: Patient has FWW and tub transfer bench. Her spouse/family will research the bulk picker and BSC. [employer] offered to order from a home equipment agency if requested. HHC: Will research Medicare Compare for [facility] agencies in patient service area and refer to her agency of choice. Services recommended by team are PT and OT. Continue to follow for patient decision about DME and for any changes warranting alternate discharge arrangements.
--- NOTE | 2020-08-06 15:12 | Physical Therapy Daily Note ---
PT Daily Note-Current Subjective Pt laying Supine in bed upon arrival. Pt agrees to PT. Pain Numeric Pain Scale: 5-Moderate Pain Location: Left Location Body Site: Arm Pain Description: Tightness Comment: Pt reports pain at IV site but IV is good per Nurse Mental Status Patient Orientation: Person, Place, Situation Attachments: IV Transfers SCALE: Activities may be completed with or without assistive devices. 6-Okywjwgrnm-mgxmwff completes the activity by him/herself with no assistance from a helper. 5-Set-up or Clean-up Assistance-helper sets up or cleans up; patient completes activity. [place] assists only prior to or following the activity. 4-Supervision or Touching Assistance-helper provides verbal cues and/or touching/steadying and/or contact guard assistance as patient completes activity. Assistance may be provided throughout the activity or intermittently. 3-Partial/Moderate Assistance-helper does LESS THAN HALF the effort. [place] lifts, holds or supports trunk or limbs, but provides less than half the effort. 2-Substantial/Maximal Assistance-helper does MORE THAN HALF the effort. [place] lifts or holds trunk or limbs and provides more than half the effort. 6-Thbjhbefo-byxenk does ALL the effort. Patient does none of the effort to complete the activity. Or, the assistance of 2 or more helpers is required for the patient to complete the activity. If activity was not attempted, code reason: 7-Patient Refused. 9-Not Applicable-not attempted and the patient did not perform the activity before the current illness, exacerbation or injury. 10-Not Attempted due to Environmental Limitations-(lack of equipment, weather restraints, etc.). 88-Not Attempted due to Medical Conditions or Safety Concerns. Weight Bearing Full Weight Bearing Full Weight Bearing Exercises Supine Ex: Bridging, Rolling, Heel Slides, Hip abd/add Supine Reps: 15 Treatments MANAGER BUSINESS CONTINUITY encourages pt to push through discomfort so pt can continue to improve. Pt able to bridge for repositioning in bed. Pt resting at end of tx with all needs met, call light in hand. Assessment Current Status: Fair Progress Pt still needs encouragement to push self instead of self limiting due to weakness and pain. PT Short Term Goals Short Term Goals Time Frame: Aug 05, 2020 Lying to sitting on side of be: 4 Sit to stand: 4 Walk 50 feet with two turns: 4 Walk 150 feet: 4 1 step (curb): 3 PT Tip Scourer Goals Skilled Nursing Goals PT Tip Scourer Goals Time Frame: Aug 19, 2020 Roll Left & Right (QC): 6 Sit to Lying (QC): 6 Lying-Sitting on Side/Bed(QC): 6 Sit to Stand (QC): 6 Chair/Krw-vt-Nlxgl Xfer(QC): 6 Toilet Transfer (QC): 6 Car Transfer (QC): 6 Does the Patient Walk: Yes Walk 10 feet (QC): 6 Walk 50ft with 2 Turns (QC): 6 Walk 150 ft (QC): 6 Walking 10ft on Uneven Surface: 5 1 Step (curb) (QC): 6 4 Steps (QC): 6 12 Steps (QC): 5 Picking up an Object (QC): 5 Does the Pt use WC or Scooter?: No Wheel 50 feet with 2 turns (QC: 9 Wheel 150 feet: 9 PT Plan Problem List Problem List: Activity Tolerance, Functional Strength Treatment/Plan Treatment Plan: Continue Plan of Care Treatment Plan: Bed Mobility, Education, Functional Activity Sandra, Functional Strength, Group Therapy, Gait, Safety, Therapeutic Exercise, Transfers Treatment Duration: Aug 19, 2020 Frequency: At least 5 of 7 days/Wk (IRF) Estimated Hrs Per Day: 1.5 hours per day Patient and/or Family Agrees t: Yes Safety Risks/Education Patient Education: Transfer Techniques, Correct Positioning, Safety Issues Teaching Recipient: Patient Teaching Methods: Discussion Response to Teaching: Verbalize Understanding Time/GCodes Time In: 1400 Time Out: 1430 Total Billed Treatment Time: 30 Total Billed Treatment 1, FA (15m) & EX (15m) JASMEET FLAHERTY PTA Aug 06, 2020 15:12
[2020-08-06 17:18] VITALS: BP 123/58
[2020-08-06] MEDS: IMIPRAMINE 25 MG (TOFRANIL) TAB PO SCH (20:35)
[2020-08-06] MEDS: LIDOCAINE PATCH REMOVAL TP SCH (20:36)
[2020-08-07 05:40] VITALS: BP 126/58
[2020-08-07] MEDS: CATHETER FLUSH 10 ML SYR IV SCH ×3 (05:58→22:46)
[2020-08-07] MEDS: CEFEPIME INJECTION 1,000 MG in WATER (STERILE) FOR INJECTION 10 ML IV SCH ×3 (05:58→18:08)
[2020-08-07] MEDS: PHENAZOPYRIDINE 100 MG (PYRIDIUM) TABLET PO SCH ×3 (08:15→18:08)
[2020-08-07] MEDS: LEVOTHYROXINE 125 MCG (LEVOTHROID) TABLET PO SCH (08:15)
[2020-08-07] MEDS: buPROPion SR 100 MG (WELLBUTRIN SR) TAB PO SCH ×2 (08:15→20:37)
[2020-08-07] MEDS: LIDOCAINE 4% (SALONPAS) PATCH TP SCH (08:15)
[2020-08-07] MEDS: DOCUSATE SODIUM 100 MG (COLACE) CAP PO SCH ×2 (08:15→20:42)
[2020-08-07] MEDS: PANTOPRAZOLE 20 MG TABLET (PROTONIX) PO SCH (08:15)
[2020-08-07] MEDS: ENOXAPARIN 40 MG/0.4 ML (LOVENOX) SYR SC SCH ×2 (08:15→20:38)
[2020-08-07 08:16] VITALS: BP 99/54
--- NOTE | 2020-08-07 08:46 | Occupational Ther Daily Note ---
OT Current Status-Daily Note Subjective Pt alert, sitting in recliner when OT entered. Pt agreed to therapy. No c/o pain reported.Pt reported feeling funny during therapy, pt taken back to room to monitor BP(check nursing notes) Mental Status/Objective Patient Orientation: Place, Time, Situation Attachments: IV ADL-Treatment Pt sit-stand from raised recliner to FWW with SBA. Pt ambulated to sink in bathroom and completed oral hygiene while standing with SBA. Pt then washed face while sitting in w/c. Pt sit-stand from w/c to FWW with CGA. Pt then ambulated to gym with SBA. Due to pt unable to complete kitchen task, CHEN discussed with pt moderations to make in kitchen area for safe ADL. Pt was able to acknowledge understanding by giving her own ideas for safe modifications throughout her home. Therapy Code Descriptions/Definitions Functional [place] Measure: 0=Not Assessed/NA 4=Minimal Assistance 1=Total Assistance 5=Supervision or Setup 2=Maximal Assistance 6=Modified [place] 3=Moderate Assistance 7=Complete IndependenceSCALE: Activities may be completed with or without assistive devices. 0-Cagdopjbef-bzrfjbz completes the activity by him/herself with no assistance from a helper. 5-Set-up or Clean-up Assistance-helper sets up or cleans up; patient completes activity. [place] assists only prior to or following the activity. 4-Supervision or Touching Assistance-helper provides verbal cues and/or touching/steadying and/or contact guard assistance as patient completes activity. Assistance may be provided throughout the activity or intermittently. 3-Partial/Moderate Assistance-helper does LESS THAN HALF the effort. [place] lifts, holds or supports trunk or limbs, but provides less than half the effort. 2-Substantial/Maximal Assistance-helper does MORE THAN HALF the effort. [place] lifts or holds trunk or limbs and provides more than half the effort. 9-Spxmjbcnj-ctmncl does ALL the effort. Patient does none of the effort to complete the activity. Or, the assistance of 2 or more helpers is required for the patient to complete the activity. If activity was not attempted, code reason: 7-Patient Refused. 9-Not Applicable-not attempted and the patient did not perform the activity before the current illness, exacerbation or injury. 10-Not Attempted due to Environmental Limitations-(lack of equipment, weather restraints, etc.). 88-Not Attempted due to Medical Conditions or Safety Concerns. Oral Hygiene (QC): 4 Other Treatment Once in gym, pt completed 15 mins of B UE arm strengthening exercise on arm bike with no resistance to strengthen UE for daily task. Pt required multiple resting breaks throughout exercise. Pt then stated that she feels funny. Pt was asked if she would like to back to room, pt stated that would be a good idea. Pt taken back to room in w/c. SPT from w/c to recliner with CGA. CHEN then took pt's BP with help from nursing (see nursing notes for BP). Nursing evaluated pt. Pt stated that she feels a little better. Pt completed 2 sets x10 reps of B UE theraband exercises while sitting to strengthen UE for functional ADLs. After therapy, pt sitting in recliner. Call light/phone in reach. All needs met. Education OT Patient Education: Exercise program, Modified ADL techniques Teaching Recipient: Patient Teaching Methods: Discussion Response to Teaching: Verbalize Understanding OT Short Term Goals Short Term Goals Time Frame: Aug 05, 2020 Eatin Oral hygiene: 5 Toileting hygiene: 3 Shower/bathe self: 3 Upper body dressin Lower body dressin Putting on/taking off footwear: 4 OT Deputy District Customs Director Goals Half-Way Goals Time Frame: Aug 12, 2020 Eating (QC): 6 Oral Hygiene (QC): 6 Toileting Hygiene (QC): 6 Shower/Bathe Self (QC): 4 Upper Body Dressing (QC): 6 Lower Body Dressing (QC): 6 On/Off Footwear (QC): 6 Additional Goals: 1-Demonstrate ADL Tasks, 2-Verbalize Understanding, 3- ImproveStrength/Sandra 1=Demonstrate adherence to instructed precautions during ADL tasks. 2=Patient will verbalize/demonstrate understanding of assistive devices/modifications for ADL. 3=Patient will improve strength/tolerance for activity to enable patient to perform ADL's. OT Education/Plan Problem List/Assessment Assessment: Decreased Activ Tolerance, Impaired I ADL's, Impaired Self-Care Skills Discharge Recommendations Plan/Recommendations: Continue POC Treatment Plan/Plan of Care Patient would benefit from OT for education, treatment and training to promote independence in ADL's, mobility, safety and/or upper extremity function for ADL's. Plan of Care: ADL Retraining, Functional Mobility, UE Funct Exercise/Act Treatment Duration: Aug 12, 2020 Frequency: At least 5 of 7 days/Wk (IRF) Estimated Hrs Per Day: 1.5 hours per day Agreement: Yes Rehab Potential: Good Time/GCodes Start Time: 07:15 Stop Time: 08:35 Total Time Billed (hr/min): 90 Billed Treatment Time 1- ADL 2 (25 mins) FA (20 mins) EX 3 (45 mins) VENTURA MILES Aug 07, 2020 08:46
[2020-08-07] MEDS: meTOprolol TARTRATE 50 MG (LOPRESSOR) TAB PO SCH ×2 (09:00→20:37)
[2020-08-07] MEDS: polyethylene glycoL POWDER 17 GM (MIRALAX) PACK PO SCH ×2 (09:00→20:42)
[2020-08-07] MEDS: FUROSEMIDE 20 MG (LASIX) TAB PO SCH (09:00)
[2020-08-07] MEDS: lisINopril 20 MG (PRINIVIL) TABLET PO SCH (09:00)
[2020-08-07] MEDS: SENNA W/DOCUSATE (SENOKOT S) TABLET PO SCH ×2 (09:00→20:42)
--- NOTE | 2020-08-07 09:16 | Progress Note - Urology ---
Progress Note-Urology Progress Notes/Assess & Plan Progress/Assessment & Plan CONTINUES BETTER CARRILLO Final Diagnosis UTI SHASHANK JACOME MD Aug 07, 2020 09:16
--- NOTE | 2020-08-07 09:56 | PM&R Progress Note ---
Subjective HPI/CC On Admission Date Seen by Provider: Aug 07, 2020 Time Seen by Provider: 10:00 Subjective/Events-last exam 08/07/20: Midline OK Sensitive to pain Hypotension noted so holding BP meds and consulting Dr Cohen since she did have Type II MA at [facility] Labs obtained and all looked ok and no sepsis 08/06/20: Midline is causing issues so will have that evaluated Cefepime and Venofer maintained through her IV so it is required Bowels moved and doing well from that aspect Pseudomonas UTI causing discomfort 08/05/20: Pseudomonas UTI will be treated with Cefepime Swallowing is okay Pyridium really does not help her bladder Midline will be replaced because Cefepime needs to be completed IV iron infusions will also be restarted 08/04/20: Pt was too obese to undergo MRI yesterday Will likely need to wait until she can go to higher-level at discharge as an outpatient for MRI Overall doing okay Pseudomonas UTI, awaiting culture Appreciate Dr. Cabrera 08/03/20: MRI of the lumbar spine will be done today with Valium taken 1hr before fo 5mg Tolerating IV iron infusions Overall feels like she is doing well 08/02/20: Patient doing better Spasms noted right back which are profound I reviewed [facility] chart regarding workup for those spasms and it appears that she did not receive an MRI so will order that since this is delaying her recovery and her recent bacteremia will need with and without contrast to be sure there is no seeding of bacteria Nose dry so ordered saline nasal spray CPAP used at bedside and talked about knee braces 08/01/20: Patient doing well today BM Urinary system improved on new meds from Urology Pain controlled No significant concerns from patient content administrator 07/31/20: at bedside today Flexeril helps back pain Used CPAP last night BM+ No falls Feels improved Fogginess in thought process noted at times Midline placed for IV iron and she has not received iron before IV but has anemia shelter Patient settling in RIght back and leg pain improved Worse CPAP last night Dr Cabrera consulted for night time polyuria and incontinence 2+ edema lower legs still KRISTEN wraps placed due to intolerance to GERARDO hose Hgb 10.4 Iron pending Checked meds and labs Conferred with RN Reviewed therapy notes Review of Systems General: Fatigue, Malaise Musculoskeletal: back pain, leg pain Focused Exam Lactate Level 08/07/20 12:30: Lactic Acid Level 1.03 Objective Exam Vital Signs Vital Signs Date Time Temp Pulse Resp B/P (MAP) Pulse Ox O2 Delivery O2 Flow Rate FiO2 08/08/20 05:16 36.4 71 16 114/61 (78) 98 NIV CPAP Capillary Refill : Less Than 3 Seconds General Appearance: No Apparent Distress, WD/WN, Chronically ill, Obese HEENT: PERRL/EOMI, Normal ENT Inspection, Pharynx Normal Neck: Full Range of Motion, Normal Inspection, Non Tender, Supple, Carotid Bruit Respiratory: Chest Non Tender, Lungs Clear, Normal Breath Sounds, No Accessory Muscle Use, No Respiratory Distress Cardiovascular: Regular Rate, Rhythm, No Edema, No Gallop, No JVD, No Murmur, Normal Peripheral Pulses Gastrointestinal: Normal Bowel Sounds, No Organomegaly, No Pulsatile Mass, Non Tender, Soft Back: Normal Inspection, Decreased Range of Motion, Muscle Spasm, Vertebral Tenderness Extremity: Normal Capillary Refill, Normal Inspection, Normal Range of Motion, Non Tender, No Calf Tenderness, No Pedal Edema Neurologic/Psychiatric: Alert, Oriented x3, No Motor/Sensory Deficits, Normal Mood/Affect, juice standardizer II-XII Norm as Tested, Abnormal Gait, Motor Weakness Skin: Normal Color, Warm/Dry Lymphatic: No Adenopathy Results/Procedures Lab Laboratory Tests 08/07/20 12:30 Patient resulted labs reviewed. FIM Transfers Therapy Code Descriptions/Definitions Functional [place] Measure: 0=Not Assessed/NA 4=Minimal Assistance 1=Total Assistance 5=Supervision or Setup 2=Maximal Assistance 6=Modified [place] 3=Moderate Assistance 7=Complete IndependenceSCALE: Activities may be completed with or without assistive devices. 9-Ftesjemhwo-hwacdxu completes the activity by him/herself with no assistance from a helper. 5-Set-up or Clean-up Assistance-helper sets up or cleans up; patient completes activity. [place] assists only prior to or following the activity. 4-Supervision or Touching Assistance-helper provides verbal cues and/or touching/steadying and/or contact guard assistance as patient completes activity. Assistance may be provided throughout the activity or intermittently. 3-Partial/Moderate Assistance-helper does LESS THAN HALF the effort. [place] lifts, holds or supports trunk or limbs, but provides less than half the effort. 2-Substantial/Maximal Assistance-helper does MORE THAN HALF the effort. [place] lifts or holds trunk or limbs and provides more than half the effort. 4-Rickhycnx-hqatkn does ALL the effort. Patient does none of the effort to complete the activity. Or, the assistance of 2 or more helpers is required for the patient to complete the activity. If activity was not attempted, code reason: 7-Patient Refused. 9-Not Applicable-not attempted and the patient did not perform the activity before the current illness, exacerbation or injury. 10-Not Attempted due to Environmental Limitations-(lack of equipment, weather restraints, etc.). 88-Not Attempted due to Medical Conditions or Safety Concerns. Roll Left to Right (QC): 5 Sit to Lying (QC): 4 Sit to Stand (QC): 5 Chair/Vti-jp-Gtdbf Xfer(QC): 6 Car Transfer (QC): 3 Gait Training Does the Patient Walk?: Yes Distance: 150' x2 Walk 10 feet (QC): 5 Walk 50 ft with 2 Turns(QC): 5 Walk 150 ft (QC): 5 Walking 10ft/uneven surface-QC: 3 (min assist for balance and safety. ) Gait Persons Needed: 1 Gait Assistive Device: FWW Wheelchair Training Does the Pt Use a Wheelchair?: No Wheel 50 ft with 2 turns (QC): 4 Wheel 150 ft (QC): 6 Stair Training 1 Step (curb) (QC): 88 (approached step but pt unable to safely attempt; fall risk noted. ) 4 Steps (QC): 88 12 Steps (QC): 88 Balance Picking up an Object (QC): 88 (functional weakness and balance deficit limit safety to attempt this task) ADL-Treatment Eating (QC): 6 (Using clinical judgement, pt able to complete own meal set up and use regular utensils to eat.) Oral Hygiene (QC): 4 Bathing Location: L Arm, R Arm, L Upper Leg, R Upper Leg, L Lower Leg (including foot), R Lower Leg (including foot), Chest, Abdomen, Buttocks (SBA), Perineal Area Shower/Bathe Self (QC): 4 Upper Body Dressing (QC): 5 Lower Body Dressing (QC): 4 On/Off Footwear (QC): 5 Toileting Hygiene (QC): 4 Toilet Transfer (QC): 4 Assessment/Plan Assessment and Plan Assess & Plan/Chief Complaint Assessment: Severe back pain with debility after 20 days hospital course at [facility] MSSA bacteremia HTN HLP Thrombocytosis Obesity GRUPO on CPAP Plan: Monitor labs Check iron level IRF protocol Fall risk 07/31/20: IV iron infusion ordered after midline Pain control IRF protocol 08/01/20: Continue IV iron infusions via midline Improved overall Pain controlled 08/02/20: MRI L-spine with and without IV contrast since Sharon had not completed one due to bacteremia issues taking precedence and this is delaying recovery and participation in her therapy. CPAP use nightly and slept well Knee braces per PT tomorrow recs as requested 08/03/20: Obtain MRI today at the lumbar spine Continue IV iron infusions Could not tolerate MRI due to anxiety even after Valium given and could not fit due to obesity 08/04/20: Obtain MRI as an outpatient Monitor pain Rehab protocol UCx pending 08/05/20: Start Cefepime for pseudomonas UTI Replace mid-line Start iron infusions since restarting mid line Monitor loose stools 08/06/20: IV abx Iron infusions Monitor pain 08/07/20: Abx Labs obtained Dr Cohen consult (1) Debility (2) Back pain (3) Type 2 myocardial infarction (4) GRUPO on CPAP (5) Obesity, morbid, BMI 40.0-49.9 (6) Edema (7) MSSA (methicillin susceptible Staphylococcus aureus) septicemia RKYSTIAN LLANES DO Aug 07, 2020 09:56
--- NOTE | 2020-08-07 10:55 | Physical Therapy Daily Note ---
PT Daily Note-Current Subjective As this CARDIAC CATH LAB TECHNOLOGIST enters the room pt. states, "have you spoken to anyone else about me? I just had some trouble being dizzy " Pt. states she feels dizzy in sitting but even more so in stance. Pt. states she is also concerned that her blood sugar might be low as she hasnt had an appetite and hasnt been eating very much. Pt. states she would like to have her FSBS taken. "I just ate a piece of cheese" present and concerned. Pain Location: No Pain Reported Appearance pt. with closed eyes and furrowed brow in stance when she c/o dizziness Mental Status Patient Orientation: Person, Place, Time, Listless Transfers SCALE: Activities may be completed with or without assistive devices. 0-Fsjqwsgzdg-yanfwle completes the activity by him/herself with no assistance from a helper. 5-Set-up or Clean-up Assistance-helper sets up or cleans up; patient completes activity. [place] assists only prior to or following the activity. 4-Supervision or Touching Assistance-helper provides verbal cues and/or touching/steadying and/or contact guard assistance as patient completes activity. Assistance may be provided throughout the activity or intermittently. 3-Partial/Moderate Assistance-helper does LESS THAN HALF the effort. [place] lifts, holds or supports trunk or limbs, but provides less than half the effort. 2-Substantial/Maximal Assistance-helper does MORE THAN HALF the effort. [place] lifts or holds trunk or limbs and provides more than half the effort. 2-Qsqwtwhvc-rmrbdg does ALL the effort. Patient does none of the effort to complete the activity. Or, the assistance of 2 or more helpers is required for the patient to complete the activity. If activity was not attempted, code reason: 7-Patient Refused. 9-Not Applicable-not attempted and the patient did not perform the activity before the current illness, exacerbation or injury. 10-Not Attempted due to Environmental Limitations-(lack of equipment, weather restraints, etc.). 88-Not Attempted due to Medical Conditions or Safety Concerns. Sit to Stand (QC): 5 (x6-7 trials) Weight Bearing Full Weight Bearing Full Weight Bearing Gait Training pt. c/o repeatedly at every attempt to stand that she is dizzy and feels faint, see BP readings etc below. Exercises Seated Therapy Exercises: Ankle pumps, Sit to stand, Shoulder Flex, Long arc quads, Chair press-ups, Hip flexion, Hip abd/add Seated Reps: 15 Treatments initial BP down seated : 112/55, HR 83, O2 sats 96%, Pt. was then asked to stand at chair for standing BP with FWW . Before BP could be recorded pt. with eyes closed stated she felt like she would faint and sat down in chair, this CARDIAC CATH LAB TECHNOLOGIST continued to record BP which was 88/50. Nursing was called to assess pt. BP would not record in seated position. Suspecting this could be a malfunction of the BP machine, a manual cuff and stethoscope was used and 3 staff members attempted a seated BP which was difficult to obtain, but concensus was 88/58 reading. Pt. was left in recliner with LEs up after LE exercises and pt left eating pudding Assessment Current Status: Fair Progress low BP and c/o dizziness/faint feeling limits Rx and function this date, FSBS was 88 PT Short Term Goals Short Term Goals Time Frame: Aug 05, 2020 Lying to sitting on side of be: 4 Sit to stand: 4 Walk 50 feet with two turns: 4 Walk 150 feet: 4 1 step (curb): 3 PT Package Dye Stand Loader Goals Long-Term Goals PT Long-Term Goals Time Frame: Aug 19, 2020 Roll Left & Right (QC): 6 Sit to Lying (QC): 6 Lying-Sitting on Side/Bed(QC): 6 Sit to Stand (QC): 6 Chair/Pdo-iy-Lukqo Xfer(QC): 6 Toilet Transfer (QC): 6 Car Transfer (QC): 6 Does the Patient Walk: Yes Walk 10 feet (QC): 6 Walk 50ft with 2 Turns (QC): 6 Walk 150 ft (QC): 6 Walking 10ft on Uneven Surface: 5 1 Step (curb) (QC): 6 4 Steps (QC): 6 12 Steps (QC): 5 Picking up an Object (QC): 5 Does the Pt use WC or Scooter?: No Wheel 50 feet with 2 turns (QC: 9 Wheel 150 feet: 9 PT Plan Treatment/Plan Treatment Plan: Continue Plan of Care Treatment Plan: Bed Mobility, Education, Functional Activity Sandra, Functional Strength, Group Therapy, Gait, Safety, Therapeutic Exercise, Transfers Treatment Duration: Aug 19, 2020 Frequency: At least 5 of 7 days/Wk (IRF) Estimated Hrs Per Day: 1.5 hours per day Patient and/or Family Agrees t: Yes Safety Risks/Education Patient Education: Transfer Techniques, Disease Process Time/GCodes Time In: 1000 Time Out: 1100 Total Billed Treatment Time: 60 Total Billed Treatment 1,FA45m,EX15m LUIS EDUARDO MCKEON CARDIAC CATH LAB TECHNOLOGIST Aug 07, 2020 10:55
[2020-08-07 12:41] LABS: BASOPHILS # (AUTO) 0.1 10^3/uL (0.0-0.1); BASOPHILS % (AUTO) 1 % (0-10); EOSINOPHILS # (AUTO) 0.2 10^3/uL (0.0-0.3); EOSINOPHILS % (AUTO) 2 % (0-10); HEMATOCRIT 35 % (35-52); HEMOGLOBIN 10.8 g/dL (11.5-16.0); LYMPHOCYTES # (AUTO) 1.9 10^3/uL (1.0-4.0); LYMPHOCYTES % (AUTO) 21 % (12-44); MEAN CORPUSCULAR HEMOGLOBIN 27 pg (25-34); MEAN CORPUSCULAR HGB CONC 31 g/dL (32-36); MEAN CORPUSCULAR VOLUME 88 fL (80-99); MEAN PLATELET VOLUME 9.1 fL (9.0-12.2); MONOCYTES # (AUTO) 1.2 10^3/uL (0.0-1.0); MONOCYTES % (AUTO) 13 % (0-12); NEUTROPHILS # (AUTO) 5.6 10^3/uL (1.8-7.8); NEUTROPHILS % (AUTO) 62 % (42-75); PLATELET COUNT 637 10^3/uL (130-400); WHITE BLOOD COUNT 9.1 10^3/uL (4.3-11.0)
[2020-08-07 12:50] LABS: ALBUMIN 2.9 GM/DL (3.2-4.5); CHLORIDE 97 MMOL/L (98-107); POTASSIUM 3.3 MMOL/L (3.6-5.0); SODIUM 133 MMOL/L (135-145)
[2020-08-07 12:51] LABS: CALCIUM 8.4 MG/DL (8.5-10.1)
[2020-08-07 12:52] LABS: GLUCOSE 107 MG/DL (70-105)
[2020-08-07 12:53] LABS: TOTAL PROTEIN 6.9 GM/DL (6.4-8.2)
[2020-08-07 12:54] LABS: BILIRUBIN,TOTAL 0.5 MG/DL (0.1-1.0); CARBON DIOXIDE 24 MMOL/L (21-32)
[2020-08-07 12:56] LABS: ALKALINE PHOSPHATASE 140 U/L (40-136); CREATININE SERUM 0.77 MG/DL (0.60-1.30); GFR ESTIMATED > 60
[2020-08-07 12:57] LABS: BUN/CREATININE RATIO 13
[2020-08-07 12:59] LABS: ALANINE AMINOTRANSFERASE 10 U/L (0-55)
[2020-08-07] MEDS ORDERED: KCL 10 MEQ TAB (MICRO K) PO NR (13:45)
--- NOTE | 2020-08-07 14:30 | Physical Therapy Daily Note ---
PT Daily Note-Current Subjective Patient in bed pre tx, agrees to PT, states she is feeling better this afternoon, patient voices no complaints of pain. Appearance Patient BTB post tx with nurse call, phone, tray, all needs met, nurse in room Mental Status Patient Orientation: Person, Place, Situation Transfers SCALE: Activities may be completed with or without assistive devices. 6-Tiecsvkhsp-rjjqlpi completes the activity by him/herself with no assistance from a helper. 5-Set-up or Clean-up Assistance-helper sets up or cleans up; patient completes activity. [place] assists only prior to or following the activity. 4-Supervision or Touching Assistance-helper provides verbal cues and/or touching/steadying and/or contact guard assistance as patient completes ac tivity. Assistance may be provided throughout the activity or intermittently. 3-Partial/Moderate Assistance-helper does LESS THAN HALF the effort. [place] lifts, holds or supports trunk or limbs, but provides less than half the effort. 2-Substantial/Maximal Assistance-helper does MORE THAN HALF the effort. [place] lifts or holds trunk or limbs and provides more than half the effort. 2-Ejcikefba-copqtd does ALL the effort. Patient does none of the effort to complete the activity. Or, the assistance of 2 or more helpers is required for the patient to complete the activity. If activity was not attempted, code reason: 7-Patient Refused. 9-Not Applicable-not attempted and the patient did not perform the activity before the current illness, exacerbation or injury. 10-Not Attempted due to Environmental Limitations-(lack of equipment, weather restraints, etc.). 88-Not Attempted due to Medical Conditions or Safety Concerns. Roll Left & Right (QC): 6 Sit to Lying (QC): 4 Lying to Sitting/Side of Bed(Q: 4 Sit to Stand (QC): 4 Chair/Svr-ql-Quole Xfer(QC): 4 CGA for sit to stand and transfers. Weight Bearing Full Weight Bearing Full Weight Bearing Wheelchair Training Does the Pt Use a Wheelchair?: Yes Wheel 50 ft with 2 turns (QC): 4 Type of Wheelchair: Manual 120'x2 to therapy gym Exercises NuStep Minutes: 10 NuStep Workload: 4 Treatments bed mobility and transfers, WC mobility, functional strengthening Assessment Current Status: Fair Progress improved functional mobility this afternoon PT Short Term Goals Short Term Goals Time Frame: Aug 05, 2020 Lying to sitting on side of be: 4 Sit to stand: 4 Walk 50 feet with two turns: 4 Walk 150 feet: 4 1 step (curb): 3 PT Sample Preparation Supervisor Goals Prison Goals PT Prison Goals Time Frame: Aug 19, 2020 Roll Left & Right (QC): 6 Sit to Lying (QC): 6 Lying-Sitting on Side/Bed(QC): 6 Sit to Stand (QC): 6 Chair/Brk-od-Nxyeq Xfer(QC): 6 Toilet Transfer (QC): 6 Car Transfer (QC): 6 Does the Patient Walk: Yes Walk 10 feet (QC): 6 Walk 50ft with 2 Turns (QC): 6 Walk 150 ft (QC): 6 Walking 10ft on Uneven Surface: 5 1 Step (curb) (QC): 6 4 Steps (QC): 6 12 Steps (QC): 5 Picking up an Object (QC): 5 Does the Pt use WC or Scooter?: No Wheel 50 feet with 2 turns (QC: 9 Wheel 150 feet: 9 PT Plan Problem List Problem List: Activity Tolerance, Functional Strength, Safety, Balance, Gait, Transfer, Bed Mobility, ROM Treatment/Plan Treatment Plan: Continue Plan of Care Treatment Plan: Bed Mobility, Education, Functional Activity Sandra, Functional Strength, Group Therapy, Gait, Safety, Therapeutic Exercise, Transfers Treatment Duration: Aug 19, 2020 Frequency: At least 5 of 7 days/Wk (IRF) Estimated Hrs Per Day: 1.5 hours per day Patient and/or Family Agrees t: Yes Safety Risks/Education Patient Education: Transfer Techniques, Correct Positioning, W/C Management, Safety Issues Teaching Recipient: Patient Teaching Methods: Demonstration, Discussion Response to Teaching: Reinforcement Needed Time/GCodes Time In: 1400 Time Out: 1430 Total Billed Treatment Time: 30 Total Billed Treatment 1 visit EX 10' FA 20' RORY MARK PT Aug 07, 2020 14:29
--- NOTE | 2020-08-07 15:20 | Consultation-Cardiology ---
HPI-Cardiology Cardiology Consultation: Date of Consultation 08/07/20 Date of Admission Attending Physician Janessa Miles DO Admitting Physician Mariel Cárdenas DO Consulting Physician Zeus COHEN MD HPI: Time Seen by a Provider: 14:00 Chief Complaint: Hypotension This is a 59-year-old lady with history of hypertension. No significant cardiac history. She was transferred for inpatient rehabilitation to [facility] from [facility]. She was admitted in [facility] due to significant bilateral pneumonia and UTI sepsis. MSSA bacteremia. She also had borderline positive troponin which were considered to be type II myocardial infarction. She denies any chest pain or shortness of breath. Her blood pressure was noted to be borderline low therefore cardiology was consulted. She is on antihypertensive therapy. She denies active smoking. Pertinent family history is negative for premature CAD. Review of Systems-Cardiology Review of Systems Constitutional: As described under HPI; No As described under HPI, No no symptoms reported, No chills, No fever, No lightheadedness Eyes: No As described under HPI, No no symptoms reported, No blindness, No blurred vision, No contact lenses, No drainage, No decreased acuity, No foreign body sensation, No pain, No vision change Ears/Nose/Throat: No As described under HPI, No no symptoms reported, No chronic hearing loss, No ear discharge, No ear pain, No nasal drainage, No ulcerations Respiratory: No no symptoms reported; As described under HPI; No As described under HPI, No cough, No orthopnea, No shortness of breath, No SOB with excertion Cardiovascular: No no symptoms reported; As described under HPI; No As described under HPI, No chest pain, No edema, No irregular heart rate, No lightheadedness, No palpitations Gastrointestinal: No no symptoms reported, No As described under HPI, No abdomen distended, No abdominal pain, No blood streaked bowels, No constipation, No diarrhea, No nausea, No vomiting, No stool coloration changes Genitourinary: No As described under HPI, No burning, No dysuria, No discharge, No frequency, No flank pain, No hematuria, No urgency : Yes : No Skin: No rash, No skin related problems, No ulcerations Psychiatric/Neurological: No anxiety, No depression, No seizure, No focal weakness, No syncope Hematologic: No bleeding abnormalities All Other Systems Reviewed Negative Unless Noted: Yes CCI-[facility] Hx Patient Social History Marrital Status: 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 Family Medical History Family History: Cardiovascular disease G8 BROTHER Congenital heart disease Allergies and Home Medications Allergies Coded Allergies: Penicillins (Verified Allergy, Unknown, 08/02/20) ciprofloxacin (Verified Allergy, Unknown, 08/02/20) Home Medications Acetaminophen 325 Mg Tablet, 650 MG PO Q6H PRN for PAIN-MILD (1-4), (Reported) Bupropion HCl 100 Mg Tablet.er, 100 MG PO BID, (Reported) Celecoxib 100 Mg Capsule, 100 MG PO BID, (Reported) Cyclobenzaprine HCl 10 Mg Tablet, 10 MG PO TID PRN for MUSCLE SPASMS, (Reported) Duloxetine HCl 60 Mg Capsule.dr, 60 MG PO DAILY PRN for PAIN-BREAKTHROUGH, (Reported) Fluticasone Propionate 9.9 Ml [place].susp, 2 SPRAY NSEACH DAILY PRN for ALLERGY SYMPTOMS, (Reported) Ibuprofen 600 Mg Tablet, 600 MG PO Q6H PRN for PAIN-MILD, (Reported) Levothyroxine Sodium 125 Mcg Tablet, 125 MCG PO DAILY, (Reported) Lisinopril 10 Mg Tablet, 10 MG PO BID, (Reported) Omeprazole 20 Mg Tab.rap.dr, 20 MG PO DAILY PRN for HEARTBURN, (Reported) Tramadol HCl 50 Mg Tablet, 100 MG PO Q12H PRN for PAIN-MODERATE (5-7), (Reported) Patient Home Medication List Home Medication List Reviewed: Yes Physical Exam-Cardiology Physical Exam Vital Signs/I&O 08/07/20 08/07/20 08/07/20 05:40 08:16 09:00 Temp 35.8 Pulse 66 81 Resp 16 B/P (MAP) 126/58 (80) 99/54 (69) Pulse Ox 97 O2 Delivery Room Air Room Air 08/07/20 00:00 Intake Total 1800 ml Balance 1800 ml Capillary Refill : Less Than 3 Seconds Constitutional: appears stated age, AAO x 3; No apparent distress; well- developed, well-nourished HEENT: PERRL; No discharge; hearing is well preserved, oral hygience is good; No ulceration, No xanthelasmas are seen Neck: No carotid bruit; carotid pulses are 2 + bilaterally Respiratory: chest is bilaterally symmetric, lungs clear to auscultation Cardiovascular: regular rate-rhythm, S1 and S2 Gastrointestinal: soft, audible bowel sounds; No spleenomegaly Rectal: deferred Extremities: normal range of motion, non-tender, normal inspection; No clubbing, No cyanosis; no lower extremity edema bilateral; No significant edema Neurologic/Psychiatric: no motor/sensory deficits, alert, normal mood/affect, oriented x 3, power is 5/5 both on sides Skin: normal color, warm/dry; No rash, No ulcerations Data Review Labs Laboratory Tests 08/07/20 10:31: Glucometer 88 08/07/20 12:30: White Blood Count 9.1, Red Blood Count 4.04, Hemoglobin 10.8L, Hematocrit 35, Mean Corpuscular Volume 88, Mean Corpuscular Hemoglobin 27, Mean Corpuscular Hemoglobin Concent 31L, Red Cell Distribution Width 15.0H, Platelet Count 637H, Mean Platelet Volume 9.1, Immature Granulocyte % (Auto) 1, Neutrophils (%) (Auto) 62, Lymphocytes (%) (Auto) 21, Monocytes (%) (Auto) 13H, Eosinophils (%) (Auto) 2, Basophils (%) (Auto) 1, Neutrophils # (Auto) 5.6, Lymphocytes # (Auto) 1.9, Monocytes # (Auto) 1.2H, Eosinophils # (Auto) 0.2, Basophils # (Auto) 0.1, Immature Granulocyte # (Auto) 0.1, Sodium Level 133L, Potassium Level 3.3L, Chloride Level 97L, Carbon Dioxide Level 24, Anion Gap 12, Blood Urea Nitrogen 10, Creatinine 0.77, Estimat Glomerular Filtration Rate > 60, BUN/Creatinine Ratio 13, Glucose Level 107H, Lactic Acid Level 1.03, Calcium Level 8.4L, Corrected Calcium 9.3, Total Bilirubin 0.5, Aspartate Amino Transf (AST/SGOT) 27, Alanine Aminotransferase (ALT/SGPT) 10, Alkaline Phosphatase 140H, Total Protein 6.9, Albumin 2.9L, Procalcitonin 0.05 Microbiology 9/21/20 Urine Culture - Final, Complete Pseudomonas aeruginosa A/P-Cardiology Assessment/Admission Diagnosis UTI sepsis, Recent pneumonia, Borderline hypotension, History of hypertension, Hyponatremia, Anemia, Hypokalemia, Borderline positive cardiac enzymes in [facility]. Plan UTI sepsis, Recent pneumonia, continue antibiotics. Borderline hypotension, hold antihypertensive agents for now. Can give IV fluids. History of hypertension, hold KRISTEN inhibitor. Hyponatremia, deferred to the primary team. Anemia, unclear etiology. Hypokalemia, defer to the primary team. Borderline positive cardiac enzymes in [facility]. Borderline positive cardiac enzymes with severe systemic illness. Was labeled as type II myocardial infarction. No further chest pain or shortness of breath. I will request an echocardiogram. Thank you for your consultation. Please call me if you have any questions. Mary Cohen MD, FACP, FACC, FSCAI, FHRS, CCDS Interventional Cardiology Cardiac Electrophysiology Vascular Medicine and Endovascular Interventions Clinical Quality Measures DVT/VTE Risk/Contraindication: Risk Factor Score Per Nursin RFS Level Per Nursing on Admit: 1=Low/No VTE PPX Zeus COHEN MD Aug 07, 2020 15:20
[2020-08-07 16:03] VITALS: BP 111/52
--- NOTE | 2020-08-07 19:09 | NUR ---
bedside report received from JAMIE BUCHANAN, assume care of pt
[2020-08-07 20:35] VITALS: BP 94/46
[2020-08-07] MEDS: IMIPRAMINE 25 MG (TOFRANIL) TAB PO SCH (20:37)
--- NOTE | 2020-08-07 20:37 | NUR ---
pt refused colace, senoskot & miralax, states had BM today
[2020-08-07] MEDS: LIDOCAINE PATCH REMOVAL TP SCH (20:42)
[2020-08-08] MEDS: CEFEPIME INJECTION 1,000 MG in WATER (STERILE) FOR INJECTION 10 ML IV SCH ×4 (00:17→18:59)
[2020-08-08 05:16] VITALS: BP 114/61
[2020-08-08] MEDS: CATHETER FLUSH 10 ML SYR IV SCH ×3 (05:58→22:45)
--- NOTE | 2020-08-08 06:30 | PM&R Progress Note ---
Subjective HPI/CC On Admission Date Seen by Provider: Aug 08, 2020 Time Seen by Provider: 12:30 Subjective/Events-last exam 08/08/20: Lidocaine patch helps Cefepime maintained for Pseudomonas UTI Midline causes discomfort due to location in arm 08/07/20: Midline OK Sensitive to pain Hypotension noted so holding BP meds and consulting Dr Cohen since she did have Type II DC at [facility] Labs obtained and all looked ok and no sepsis 08/06/20: Midline is causing issues so will have that evaluated Cefepime and Venofer maintained through her IV so it is required Bowels moved and doing well from that aspect Pseudomonas UTI causing discomfort 08/05/20: Pseudomonas UTI will be treated with Cefepime Swallowing is okay Pyridium really does not help her bladder Midline will be replaced because Cefepime needs to be completed IV iron infusions will also be restarted 08/04/20: Pt was too obese to undergo MRI yesterday Will likely need to wait until she can go to higher-level at discharge as an outpatient for MRI Overall doing okay Pseudomonas UTI, awaiting culture Appreciate Dr. Cabrera 08/03/20: MRI of the lumbar spine will be done today with Valium taken 1hr before fo 5mg Tolerating IV iron infusions Overall feels like she is doing well 08/02/20: Patient doing better Spasms noted right back which are profound I reviewed 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 07/31/20: at bedside today Flexeril helps back pain Used CPAP last night BM+ No falls Feels improved Fogginess in thought process noted at times Midline placed for IV iron and she has not received iron before IV but has anemia alf Patient settling in RIght back and leg pain improved Worse CPAP last night Dr Cabrera consulted for night time polyuria and incontinence 2+ edema lower legs still KRISTEN wraps placed due to intolerance to GERARDO hose Hgb 10.4 Iron pending Checked meds and labs Conferred with RN Reviewed therapy notes Review of Systems General: Fatigue Musculoskeletal: back pain, leg pain Focused Exam Lactate Level 08/07/20 12:30: Lactic Acid Level 1.03 Objective Exam Vital Signs Vital Signs Date Time Temp Pulse Resp B/P (MAP) Pulse Ox O2 Delivery O2 Flow Rate FiO2 08/09/20 06:40 36.2 86 20 133/64 (87) 97 Room Air Capillary Refill : Less Than 3 Seconds General Appearance: No Apparent Distress, WD/WN, Chronically ill, Obese HEENT: PERRL/EOMI, Normal ENT Inspection, Pharynx Normal Neck: Full Range of Motion, Normal Inspection, Non Tender, Supple, Carotid Bruit Respiratory: Chest Non Tender, Lungs Clear, Normal Breath Sounds, No Accessory Muscle Use, No Respiratory Distress Cardiovascular: Regular Rate, Rhythm, No Edema, No Gallop, No JVD, No Murmur, Normal Peripheral Pulses Gastrointestinal: Normal Bowel Sounds, No Organomegaly, No Pulsatile Mass, Non Tender, Soft Back: Normal Inspection, Decreased Range of Motion, Muscle Spasm, Vertebral Tenderness Extremity: Normal Capillary Refill, Normal Inspection, Normal Range of Motion, Non Tender, No Calf Tenderness, No Pedal Edema Neurologic/Psychiatric: Alert, Oriented x3, No Motor/Sensory Deficits, Normal Mood/Affect, babbitter II-XII Norm as Tested, Abnormal Gait, Motor Weakness Skin: Normal Color, Warm/Dry Lymphatic: No Adenopathy Results/Procedures Lab Patient resulted labs reviewed. FIM Transfers Therapy Code Descriptions/Definitions Functional [place] Measure: 0=Not Assessed/NA 4=Minimal Assistance 1=Total Assistance 5=Supervision or Setup 2=Maximal Assistance 6=Modified [place] 3=Moderate Assistance 7=Complete IndependenceSCALE: Activities may be completed with or without assistive devices. 0-Bvaucdqyoj-ovwfakq completes the activity by him/herself with no assistance from a helper. 5-Set-up or Clean-up Assistance-helper sets up or cleans up; patient completes activity. [place] assists only prior to or following the activity. 4-Supervision or Touching Assistance-helper provides verbal cues and/or touching/steadying and/or contact guard assistance as patient completes activity. Assistance may be provided throughout the activity or intermittently. 3-Partial/Moderate Assistance-helper does LESS THAN HALF the effort. [place] lifts, holds or supports trunk or limbs, but provides less than half the effort. 2-Substantial/Maximal Assistance-helper does MORE THAN HALF the effort. [place] lifts or holds trunk or limbs and provides more than half the effort. 3-Mrsqoapko-tkbgtm does ALL the effort. Patient does none of the effort to complete the activity. Or, the assistance of 2 or more helpers is required for the patient to complete the activity. If activity was not attempted, code reason: 7-Patient Refused. 9-Not Applicable-not attempted and the patient did not perform the activity before the current illness, exacerbation or injury. 10-Not Attempted due to Environmental Limitations-(lack of equipment, weather restraints, etc.). 88-Not Attempted due to Medical Conditions or Safety Concerns. Roll Left to Right (QC): 6 Sit to Lying (QC): 4 Sit to Stand (QC): 4 Chair/Dvk-li-Tosja Xfer(QC): 4 Car Transfer (QC): 3 Gait Training Does the Patient Walk?: Yes Distance: 150' x2 Walk 10 feet (QC): 5 Walk 50 ft with 2 Turns(QC): 5 Walk 150 ft (QC): 5 Walking 10ft/uneven surface-QC: 3 (min assist for balance and safety. ) Gait Persons Needed: 1 Gait Assistive Device: FWW Wheelchair Training Does the Pt Use a Wheelchair?: Yes Wheel 50 ft with 2 turns (QC): 4 Wheel 150 ft (QC): 6 Type of Wheelchair: Manual Stair Training 1 Step (curb) (QC): 88 (approached step but pt unable to safely attempt; fall risk noted. ) 4 Steps (QC): 88 12 Steps (QC): 88 Balance Picking up an Object (QC): 88 (functional weakness and balance deficit limit safety to attempt this task) ADL-Treatment Eating (QC): 6 (Using clinical judgement, pt able to complete own meal set up and use regular utensils to eat.) Oral Hygiene (QC): 4 Bathing Location: L Arm, R Arm, L Upper Leg, R Upper Leg, L Lower Leg (including foot), R Lower Leg (including foot), Chest, Abdomen, Buttocks (SBA), Perineal Area Shower/Bathe Self (QC): 4 Upper Body Dressing (QC): 5 Lower Body Dressing (QC): 4 On/Off Footwear (QC): 5 Toileting Hygiene (QC): 4 Toilet Transfer (QC): 4 Assessment/Plan Assessment and Plan Assess & Plan/Chief Complaint Assessment: Severe back pain with debility [facility] HTN HLP Thrombocytosis Obesity GRUPO on CPAP Plan: Monitor labs Check iron level IRF protocol Fall risk 07/31/20: IV iron infusion ordered after midline Pain control IRF protocol 08/01/20: Continue IV iron infusions via midline Improved overall Pain controlled 08/02/20: MRI L-spine with and without IV contrast since Sharon had not completed one due to bacteremia issues taking precedence and this is delaying recovery and participation in her therapy. CPAP use nightly and slept well Knee braces per PT tomorrow recs as requested 08/03/20: Obtain MRI today at the lumbar spine Continue IV iron infusions Could not tolerate MRI due to anxiety even after Valium given and could not fit due to obesity 08/04/20: Obtain MRI as an outpatient Monitor pain Rehab protocol UCx pending 08/05/20: Start Cefepime for pseudomonas UTI Replace mid-line Start iron infusions since restarting mid line Monitor loose stools 08/06/20: IV abx Iron infusions Monitor pain 08/07/20: Abx Labs obtained Dr Cohen consult 08/08/20: Monitor midline Complete abx Pain control (1) Debility (2) Back pain (3) Type 2 myocardial infarction (4) GRUPO on CPAP (5) Obesity, morbid, BMI 40.0-49.9 (6) Edema (7) MSSA (methicillin susceptible Staphylococcus aureus) septicemia KRYSTIAN LLANES DO Aug 08, 2020 06:30
[2020-08-08] MEDS: KCL 10 MEQ TAB (MICRO K) PO SCH (06:32)
[2020-08-08 08:00] VITALS: BP 120/62
[2020-08-08] MEDS: PHENAZOPYRIDINE 100 MG (PYRIDIUM) TABLET PO SCH ×3 (08:40→19:22)
[2020-08-08] MEDS: buPROPion SR 100 MG (WELLBUTRIN SR) TAB PO SCH ×2 (08:40→20:45)
[2020-08-08] MEDS: meTOprolol TARTRATE 50 MG (LOPRESSOR) TAB PO SCH ×2 (08:40→20:49)
[2020-08-08] MEDS: PANTOPRAZOLE 20 MG TABLET (PROTONIX) PO SCH (08:40)
[2020-08-08] MEDS: LEVOTHYROXINE 125 MCG (LEVOTHROID) TABLET PO SCH (08:41)
[2020-08-08] MEDS: lisINopril 20 MG (PRINIVIL) TABLET PO SCH (08:41)
[2020-08-08] MEDS: FUROSEMIDE 20 MG (LASIX) TAB PO SCH (08:42)
[2020-08-08] MEDS: polyethylene glycoL POWDER 17 GM (MIRALAX) PACK PO SCH ×2 (08:43→20:50)
[2020-08-08] MEDS: DOCUSATE SODIUM 100 MG (COLACE) CAP PO SCH ×2 (08:43→20:49)
[2020-08-08] MEDS: ENOXAPARIN 40 MG/0.4 ML (LOVENOX) SYR SC SCH ×2 (08:44→20:45)
[2020-08-08] MEDS: LIDOCAINE 4% (SALONPAS) PATCH TP SCH (08:45)
[2020-08-08] MEDS: SENNA W/DOCUSATE (SENOKOT S) TABLET PO SCH ×2 (08:45→20:50)
[2020-08-08] MEDS: IRON SUCROSE 200 MG/10 ML (VENOFER) VIAL IV SCH (08:46)
--- NOTE | 2020-08-08 09:00 | NUR ---
DENIES UTI SYMPTOMS. DENIES HS URINARY INCONTINENCY FOR 3-4 NIGHTS. DENIES FURTHER DIZZINESS. STATES LIDOCAINE PATCH IS ENOUGH TO RELIEVE BACK PAIN. LOWER EXT. EDEMA IS IMPROVED AND TEDS PUT ON. BP STABLE. STATES FEELING BETTER AND "PERKIER". STATES APPETITE IS STILL NOT IMPROVED. ENCOURAGED TO HAVE FOOD BROUGHT IN FROM HOME. CONTINUES TO HAVE A PRODUCTIVE COUGH OF YELLOW SPUTUM.
--- NOTE | 2020-08-08 10:35 | Physical Therapy Daily Note ---
PT Daily Note-Current Subjective Pt sitting up in chair upon arrival; pt agrees to PT tx. Pain Numeric Pain Scale: 4 Location: Posterior Location Body Site: Back Pain Description: Ache Mental Status Patient Orientation: Person, Place, Time, Situation Transfers SCALE: Activities may be completed with or without assistive devices. 4-Ysrfhsogqq-tqqiwpd completes the activity by him/herself with no assistance from a helper. 5-Set-up or Clean-up Assistance-helper sets up or cleans up; patient completes activity. [place] assists only prior to or following the activity. 4-Supervision or Touching Assistance-helper provides verbal cues and/or touching/steadying and/or contact guard assistance as patient completes activity. Assistance may be provided throughout the activity or intermittently. 3-Partial/Moderate Assistance-helper does LESS THAN HALF the effort. [place] lifts, holds or supports trunk or limbs, but provides less than half the effort. 2-Substantial/Maximal Assistance-helper does MORE THAN HALF the effort. [place] lifts or holds trunk or limbs and provides more than half the effort. 8-Jxtpiurpg-cuqdet does ALL the effort. Patient does none of the effort to complete the activity. Or, the assistance of 2 or more helpers is required for the patient to complete the activity. If activity was not attempted, code reason: 7-Patient Refused. 9-Not Applicable-not attempted and the patient did not perform the activity before the current illness, exacerbation or injury. 10-Not Attempted due to Environmental Limitations-(lack of equipment, weather restraints, etc.). 88-Not Attempted due to Medical Conditions or Safety Concerns. Sit to Lying (QC): 4 Sit to Stand (QC): 4 Chair/Cgr-ru-Mqlnc Xfer(QC): 4 Weight Bearing Full Weight Bearing Full Weight Bearing Gait Training Does the Patient Walk?: Yes Distance: 5' Gait Persons Needed: 1 Gait Assistive Device: FWW Exercises Supine Ex: Ankle pumps, Quad Set, Glut sets, Short Arc Quads Supine Reps: 20 Seated Therapy Exercises: Ankle pumps, Long arc quads, Hip flexion, Kicking activity, Hip abd/add (manual resistance applied) Seated Reps: 20 Treatments Seated ex completed in recliner. Pt ambulates to EOB w/ FWW. Supine ex completed in bed. Call light and bedside table w/in reach and all needs met at end of tx. Assessment Current Status: Fair Progress Pt motivated to go home. PT Short Term Goals Short Term Goals Time Frame: Aug 05, 2020 Lying to sitting on side of be: 4 Sit to stand: 4 Walk 50 feet with two turns: 4 Walk 150 feet: 4 1 step (curb): 3 PT Detention Goals Detention Goals PT Heater Mechanic Goals Time Frame: Aug 19, 2020 Roll Left & Right (QC): 6 Sit to Lying (QC): 6 Lying-Sitting on Side/Bed(QC): 6 Sit to Stand (QC): 6 Chair/Oti-ui-Vfouq Xfer(QC): 6 Toilet Transfer (QC): 6 Car Transfer (QC): 6 Does the Patient Walk: Yes Walk 10 feet (QC): 6 Walk 50ft with 2 Turns (QC): 6 Walk 150 ft (QC): 6 Walking 10ft on Uneven Surface: 5 1 Step (curb) (QC): 6 4 Steps (QC): 6 12 Steps (QC): 5 Picking up an Object (QC): 5 Does the Pt use WC or Scooter?: No Wheel 50 feet with 2 turns (QC: 9 Wheel 150 feet: 9 PT Plan Problem List Problem List: Activity Tolerance, Functional Strength, Safety, Balance, Gait, Transfer, Bed Mobility Treatment/Plan Treatment Plan: Continue Plan of Care Treatment Plan: Bed Mobility, Education, Functional Activity Sandra, Functional Strength, Group Therapy, Gait, Safety, Therapeutic Exercise, Transfers Treatment Duration: Aug 19, 2020 Frequency: At least 5 of 7 days/Wk (IRF) Estimated Hrs Per Day: 1.5 hours per day Patient and/or Family Agrees t: Yes Safety Risks/Education Patient Education: Correct Positioning, Safety Issues Teaching Recipient: Patient Teaching Methods: Discussion Response to Teaching: Verbalize Understanding Time/GCodes Time In: 08 Time Out: 08 Total Billed Treatment Time: 15 Total Billed Treatment 1, Ex (15m) CHARLEEN MARCIAL DISTRIBUTOR OPERATOR Aug 08, 2020 10:35
[2020-08-08] MEDS ORDERED: WATER (STERILE) FOR INJECTION 10 ML ONE (11:42)
--- NOTE | 2020-08-08 15:37 | Cardiology Progress Note ---
Cardiology SOAP Progress Note Subjective: no cardiac complaints. Objective: I&O/Vital Signs 08/08/20 08/08/20 05:16 09:00 Temp 36.4 Pulse 71 Resp 16 B/P (MAP) 114/61 (78) Pulse Ox 98 O2 Delivery NIV CPAP Room Air 08/08/20 00:00 Intake Total 1800 ml Balance 1800 ml Constitutional: appears stated age, AAO x 3; No apparent distress; well- developed, well-nourished Respiratory: chest is bilaterally symmetric, lungs clear to auscultation Cardiovascular: regular rate-rhythm, S1 and S2 Gastrointestional: soft, audible bowel sounds; No spleenomegaly Extremities: normal range of motion, non-tender, normal inspection; No clubbing, No cyanosis; no lower extremity edema bilateral; No significant edema Neurologic/Psychiatric: no motor/sensory deficits, alert, normal mood/affect, oriented x 3, power is 5/5 both on sides Skin: normal color, warm/dry; No rash, No ulcerations Results/Procedures: Labs Microbiology 08/03/20 Urine Culture - Final, Complete Pseudomonas aeruginosa A/P: Assessment/Dx: UTI sepsis, Recent pneumonia, Borderline hypotension, History of hypertension, Hyponatremia, Anemia, Hypokalemia, Borderline positive cardiac enzymes in [facility]. Plan: UTI sepsis, Recent pneumonia, continue antibiotics. Borderline hypotension, hold antihypertensive agents for now. Can give IV fluids. resolved. Blood pressure this morning systolic 113 mmHg. History of hypertension, hold KRISTEN inhibitor. Hyponatremia, deferred to the primary team. Anemia, unclear etiology. Hypokalemia, defer to the primary team. Borderline positive cardiac enzymes in [facility]. Borderline positive cardiac enzymes with severe systemic illness. Was labeled as type II myocardial infarction. No further chest pain or shortness of breath. echocardiogram showed normal LV function with no wall motion abnormalities. Thank you for your consultation. Please call me if you have any questions. Mary Cohen MD, FACP, FACC, FSCAI, FHRS, CCDS Interventional Cardiology Cardiac Electrophysiology Vascular Medicine and Endovascular Interventions Focused Exam Lactate Level 08/07/20 12:30: Lactic Acid Level 1.03 Zeus COHEN MD Aug 08, 2020 15:37
[2020-08-08 16:00] VITALS: BP 113/54
--- NOTE | 2020-08-08 19:00 | NUR ---
COMPLAINING OF PAIN AT MIDLINE SITE IN LEFT ARM THROUGHOUT AFTERNOON. IS RED AND IRRITATED ON BACK SIDE OF UPPER LEFT ARM. HIWOT BUCHANAN STARTED IV IN RIGHT AC WITH ULTRASOUND. FLUSHING WELL. LEFT MIDLINE DC'D PER PATIENT REQUEST.
--- NOTE | 2020-08-08 19:11 | NUR ---
bedside report received from IRINEO BUCHANAN, assume care of pt
[2020-08-08 20:40] VITALS: BP 111/58
[2020-08-08] MEDS: IMIPRAMINE 25 MG (TOFRANIL) TAB PO SCH (20:45)
--- NOTE | 2020-08-08 20:45 | NUR ---
pt refused Colace, Senokot & miralax, b/p 111/58, Lopressor 50mg held
[2020-08-08] MEDS: LIDOCAINE PATCH REMOVAL TP SCH (20:49)
[2020-08-09] MEDS: CEFEPIME INJECTION 1,000 MG in WATER (STERILE) FOR INJECTION 10 ML IV SCH ×4 (00:10→17:42)
[2020-08-09] MEDS: CATHETER FLUSH 10 ML SYR IV SCH ×3 (06:07→22:46)
[2020-08-09] MEDS: KCL 10 MEQ TAB (MICRO K) PO SCH (06:35)
[2020-08-09] MEDS: CYCLOBENZAPRINE 10 MG (FLEXERIL) TAB PO PRN (06:35)
[2020-08-09 06:40] VITALS: BP 133/64
[2020-08-09 08:00] VITALS: BP 89/53
--- NOTE | 2020-08-09 08:00 | NUR ---
BACK OF LEFT UPPER ARM MILDLY RED WITH SOME EDEMA. ICE PACK ON TO SITE. MINIMAL LOW BACK PAIN RELIEVED BY LIDOCAINE PATCH AND FLEXERIL. APPEARS TO HAVE A MORE FREQUENT COUGH OF YELLOW SPUTUM AND I.S. STARTED. IS HYPOTENSIVE THIS AM.
[2020-08-09] MEDS: buPROPion SR 100 MG (WELLBUTRIN SR) TAB PO SCH ×2 (08:52→20:19)
[2020-08-09] MEDS: PANTOPRAZOLE 20 MG TABLET (PROTONIX) PO SCH (08:52)
[2020-08-09] MEDS: PHENAZOPYRIDINE 100 MG (PYRIDIUM) TABLET PO SCH ×3 (08:52→18:08)
[2020-08-09] MEDS: LEVOTHYROXINE 125 MCG (LEVOTHROID) TABLET PO SCH (08:52)
[2020-08-09] MEDS: FUROSEMIDE 20 MG (LASIX) TAB PO SCH (08:54)
[2020-08-09] MEDS: ENOXAPARIN 40 MG/0.4 ML (LOVENOX) SYR SC SCH ×2 (08:55→20:19)
[2020-08-09] MEDS: LIDOCAINE 4% (SALONPAS) PATCH TP SCH (08:55)
[2020-08-09] MEDS: DOCUSATE SODIUM 100 MG (COLACE) CAP PO SCH ×2 (08:56→20:19)
[2020-08-09] MEDS: SENNA W/DOCUSATE (SENOKOT S) TABLET PO SCH ×2 (08:56→20:20)
[2020-08-09] MEDS: meTOprolol TARTRATE 50 MG (LOPRESSOR) TAB PO SCH ×2 (08:56→20:19)
[2020-08-09] MEDS: lisINopril 20 MG (PRINIVIL) TABLET PO SCH (08:56)
[2020-08-09] MEDS: polyethylene glycoL POWDER 17 GM (MIRALAX) PACK PO SCH ×2 (08:56→20:19)
--- NOTE | 2020-08-09 12:09 | PM&R Progress Note ---
Subjective HPI/CC On Admission Date Seen by Provider: Aug 09, 2020 Time Seen by Provider: 12:15 Subjective/Events-last exam 08/09/20: Midline DC due to thrombophlebitis will check USG tomorrow Lidocaine and Flexeril working well for her at bedside BM 08/07 so ordered laxatives 08/08/20: Lidocaine patch helps Cefepime maintained for Pseudomonas UTI Midline causes discomfort due to location in arm 08/07/20: Midline OK Sensitive to pain Hypotension noted so holding BP meds and consulting Dr Cohen since she did have Type II NH at [facility] Labs obtained and all looked ok and no sepsis 08/06/20: Midline is causing issues so will have that evaluated Cefepime and Venofer maintained through her IV so it is required Bowels moved and doing well from that aspect Pseudomonas UTI causing discomfort 08/05/20: Pseudomonas UTI will be treated with Cefepime Swallowing is okay Pyridium really does not help her bladder Midline will be replaced because Cefepime needs to be completed IV iron infusions will also be restarted 08/04/20: Pt was too obese to undergo MRI yesterday Will likely need to wait until she can go to higher-level at discharge as an outpatient for MRI Overall doing okay Pseudomonas UTI, awaiting culture Appreciate Dr. Cabrera 08/03/20: MRI of the lumbar spine will be done today with Valium taken 1hr before fo 5mg Tolerating IV iron infusions Overall feels like she is doing well 08/02/20: Patient doing better Spasms noted right back which are profound I reviewed [facility] chart regarding workup for those spasms and it appears that she did not receive an MRI so will order that since this is delaying her recovery and her recent bacteremia will need with and without contrast to be sure there is no seeding of bacteria Nose dry so ordered saline nasal spray CPAP used at bedside and talked about knee braces 08/01/20: Patient doing well today BM Urinary system improved on new meds from Urology Pain controlled 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 07/31/20: at bedside today Flexeril helps back pain Used CPAP last night BM+ No falls Feels improved Fogginess in thought process noted at times Midline placed for IV iron and she has not received iron before IV but has anemia sweet 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 mixer Patient settling in RIght back and leg pain improved Worse CPAP last night Dr Cabrera consulted for night time polyuria and incontinence 2+ edema lower legs still KRISTEN wraps placed due to intolerance to GERARDO hose Hgb 10.4 Iron pending Checked meds and labs Conferred with RN Reviewed therapy notes Review of Systems General: Fatigue, Malaise Musculoskeletal: back pain Neurological: Weakness Focused Exam Lactate Level 08/07/20 12:30: Lactic Acid Level 1.03 Objective Exam Vital Signs Vital Signs Date Time Temp Pulse Resp B/P (MAP) Pulse Ox O2 Delivery O2 Flow Rate FiO2 08/09/20 09:00 Room Air 08/09/20 08:00 85 89/53 (65) 08/09/20 06:40 36.2 20 97 Capillary Refill : Less Than 3 Seconds General Appearance: No Apparent Distress, WD/WN, Chronically ill, Obese HEENT: PERRL/EOMI, Normal ENT Inspection, Pharynx Normal Neck: Full Range of Motion, Normal Inspection, Non Tender, Supple, Carotid Bruit Respiratory: Chest Non Tender, Lungs Clear, Normal Breath Sounds, No Accessory Muscle Use, No Respiratory Distress Cardiovascular: Regular Rate, Rhythm, No Edema, No Gallop, No JVD, No Murmur, Normal Peripheral Pulses Gastrointestinal: Normal Bowel Sounds, No Organomegaly, No Pulsatile Mass, Non Tender, Soft Back: Normal Inspection, Decreased Range of Motion, Muscle Spasm, Vertebral Te nderness Extremity: Normal Capillary Refill, Normal Inspection, Normal Range of Motion, Non Tender, No Calf Tenderness, No Pedal Edema Neurologic/Psychiatric: Alert, Oriented x3, No Motor/Sensory Deficits, Normal 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 FIM Transfers Therapy Code Descriptions/Definitions Functional [place] Measure: 0=Not Assessed/NA 4=Minimal Assistance 1=Total Assistance 5=Supervision or Setup 2=Maximal Assistance 6=Modified [place] 3=Moderate Assistance 7=Complete IndependenceSCALE: Activities may be completed with or without assistive devices. 4-Rqrhrttbvt-whotagx completes the activity by him/herself with no assistance from a helper. 5-Set-up or Clean-up Assistance-helper sets up or cleans up; patient completes activity. [place] assists only prior to or following the activity. 4-Supervision or Touching Assistance-helper provides verbal cues and/or touching/steadying and/or contact guard assistance as patient completes activity. Assistance may be provided throughout the activity or intermittently. 3-Partial/Moderate Assistance-helper does LESS THAN HALF the effort. [place] lifts, holds or supports trunk or limbs, but provides less than half the effort. 2-Substantial/Maximal Assistance-helper does MORE THAN HALF the effort. [place] lifts or holds trunk or limbs and provides more than half the effort. 4-Wqblkrbbb-msoadm does ALL the effort. Patient does none of the effort to complete the activity. Or, the assistance of 2 or more helpers is required for the patient to complete the activity. If activity was not attempted, code reason: 7-Patient Refused. 9-Not Applicable-not attempted and the patient did not perform the activity before the current illness, exacerbation or injury. 10-Not Attempted due to Environmental Limitations-(lack of equipment, weather restraints, etc.). 88-Not Attempted due to Medical Conditions or Safety Concerns. Roll Left to Right (QC): 6 Sit to Lying (QC): 4 Sit to Stand (QC): 4 Chair/Zbc-py-Avhdv Xfer(QC): 4 Car Transfer (QC): 3 Gait Training Does the Patient Walk?: Yes Distance: 5' Walk 10 feet (QC): 5 Walk 50 ft with 2 Turns(QC): 5 Walk 150 ft (QC): 5 Walking 10ft/uneven surface-QC: 3 (min assist for balance and safety. ) Gait Persons Needed: 1 Gait Assistive Device: FWW Wheelchair Training Does the Pt Use a Wheelchair?: Yes Wheel 50 ft with 2 turns (QC): 4 Wheel 150 ft (QC): 6 Type of Wheelchair: Manual Stair Training 1 Step (curb) (QC): 88 (approached step but pt unable to safely attempt; fall risk noted. ) 4 Steps (QC): 88 12 Steps (QC): 88 Balance Picking up an Object (QC): 88 (functional weakness and balance deficit limit safety to attempt this task) ADL-Treatment Eating (QC): 6 (Using clinical judgement, pt able to complete own meal set up and use regular utensils to eat.) Oral Hygiene (QC): 4 Bathing Location: L Arm, R Arm, L Upper Leg, R Upper Leg, L Lower Leg (including foot), R Lower Leg (including foot), Chest, Abdomen, Buttocks (SBA), Perineal Area Shower/Bathe Self (QC): 4 Upper Body Dressing (QC): 5 Lower Body Dressing (QC): 4 On/Off Footwear (QC): 5 Toileting Hygiene (QC): 4 Toilet Transfer (QC): 4 Assessment/Plan Assessment and Plan Assess & Plan/Chief Complaint Assessment: Severe back pain with debility after 20 days hospital course at [facility] MSSA bacteremia HTN HLP Thrombocytosis Obesity GRUPO on CPAP Plan: Monitor labs Check iron level IRF protocol Fall risk 07/31/20: IV iron infusion ordered after midline Pain control IRF protocol 08/01/20: Continue IV iron infusions via midline Improved overall Pain controlled 08/02/20: MRI L-spine with and without IV contrast since Sharon had not completed one due to bacteremia issues taking precedence and this is delaying recovery and participation in her therapy. CPAP use nightly and slept well Knee braces per PT tomorrow recs as requested 08/03/20: Obtain MRI today at the lumbar spine Continue IV iron infusions Could not tolerate MRI due to anxiety even after Valium given and could not fit due to obesity 08/04/20: Obtain MRI as an outpatient Monitor pain Rehab protocol UCx pending 08/05/20: Start Cefepime for pseudomonas UTI Replace mid-line Start iron infusions since restarting mid line Monitor loose stools 08/06/20: IV abx Iron infusions Monitor pain 08/07/20: Abx Labs obtained Dr Cohen consult 08/08/20: Monitor midline Complete abx Pain control 08/09/20: Complete IV abx Pain control Check labs in am (1) Debility (2) Back pain (3) Type 2 myocardial infarction (4) GRUPO on CPAP (5) Obesity, morbid, BMI 40.0-49.9 (6) Edema (7) MSSA (methicillin susceptible Staphylococcus aureus) septicemia KRYSTIAN LLANES DO Aug 09, 2020 12:09
--- NOTE | 2020-08-09 14:00 | NUR ---
DR. BUSCH HERE TO SEE PATIENT. CONTINUE TO MONITOR BP. NO CHANGES IN MEDICATIONS. WARM PACK ONTO LEFT UPPER ARM.
--- NOTE | 2020-08-09 15:35 | Cardiology Progress Note ---
Cardiology SOAP Progress Note Subjective: no cardiac complaints. Objective: I&O/Vital Signs 08/09/20 08/09/20 08/09/20 06:40 08:00 09:00 Temp 36.2 Pulse 86 85 Resp 20 B/P (MAP) 133/64 (87) 89/53 (65) Pulse Ox 97 O2 Delivery Room Air Room Air 08/09/20 00:00 Intake Total 2285 ml Balance 2285 ml Constitutional: appears stated age, AAO x 3; No apparent distress; well- developed, well-nourished Respiratory: chest is bilaterally symmetric, lungs clear to auscultation Cardiovascular: regular rate-rhythm, S1 and S2 Gastrointestional: soft, audible bowel sounds; No spleenomegaly Extremities: normal range of motion, non-tender, normal inspection; No clubbing, No cyanosis; no lower extremity edema bilateral; No significant edema Neurologic/Psychiatric: no motor/sensory deficits, alert, normal mood/affect, oriented x 3, power is 5/5 both on sides Skin: normal color, warm/dry; No rash, No ulcerations Results/Procedures: Labs Microbiology 08/03/20 Urine Culture - Final, Complete Pseudomonas aeruginosa A/P: Assessment/Dx: UTI sepsis, Recent pneumonia, Borderline hypotension, History of hypertension, Hyponatremia, Anemia, Hypokalemia, Borderline positive cardiac enzymes in [facility]. Plan: UTI sepsis, Recent pneumonia, continue antibiotics. Borderline hypotension, hold antihypertensive agents for now. Can give IV fluids. blood pressure this morning systolic 90 mmHg. History of hypertension, hold KRISTEN inhibitor. Hyponatremia, deferred to the primary team. Anemia, unclear etiology. Hypokalemia, defer to the primary team. Borderline positive cardiac enzymes in [facility]. Borderline positive cardiac enzymes with severe systemic illness. Was labeled as type II myocardial infarction. No further chest pain or shortness of breath. echocardiogram showed normal LV function with no wall motion abnormalities. Thank you for your consultation. Please call me if you have any questions. Mary Cohen MD, FACP, FACC, FSCAI, FHRS, CCDS Interventional Cardiology Cardiac Electrophysiology Vascular Medicine and Endovascular Interventions Focused Exam Lactate Level 08/07/20 12:30: Lactic Acid Level 1.03 Zeus COHEN MD Aug 09, 2020 15:35
[2020-08-09 17:02] VITALS: BP 122/65
--- NOTE | 2020-08-09 18:00 | NUR ---
FEELS LEFT ARM SWELLING IS IMPROVED.
--- NOTE | 2020-08-09 19:08 | NUR ---
bedside report received from IRINEO BUCHANAN, assume care of pt
[2020-08-09 20:15] VITALS: BP 126/60
[2020-08-09] MEDS: IMIPRAMINE 25 MG (TOFRANIL) TAB PO SCH (20:18)
--- NOTE | 2020-08-09 20:19 | NUR ---
pt refused Colace, Senokot & miralax, b/p 126/60, Lopressor 50mg given
[2020-08-09] MEDS: LIDOCAINE PATCH REMOVAL TP SCH (20:26)
[2020-08-10] MEDS: CEFEPIME INJECTION 1,000 MG in WATER (STERILE) FOR INJECTION 10 ML IV SCH ×2 (00:04→06:19)
[2020-08-10 05:16] VITALS: BP 122/71
--- NOTE | 2020-08-10 05:33 | PM&R Progress Note ---
Subjective HPI/CC On Admission Date Seen by Provider: Aug 10, 2020 Time Seen by Provider: 09:00 Subjective/Events-last exam 08/10/20: Pt doing pretty well Will get an ultrasound of the left upper extremity from the midline because it does appear to be a thrombophlebitis at the very least its a phlebitis Warm wet compress is helpful Bowels are moving now Completing iron infusion and Cefepime today DC planning probably later in the week 08/09/20: Midline DC due to thrombophlebitis will check USG tomorrow Lidocaine and Flexeril working well for her at bedside BM 08/07 so ordered laxatives 08/08/20: Lidocaine patch helps Cefepime maintained for Pseudomonas UTI Midline causes discomfort due to location in arm 08/07/20: Midline OK Sensitive to pain Hypotension noted so holding BP meds and consulting Dr Cohen since she did have Type II NC at [facility] Labs obtained and all looked ok and no sepsis 08/06/20: Midline is causing issues so will have that evaluated Cefepime and Venofer maintained through her IV so it is required Bowels moved and doing well from that aspect Pseudomonas UTI causing discomfort 08/05/20: Pseudomonas UTI will be treated with Cefepime Swallowing is okay Pyridium really does not help her bladder Midline will be replaced because Cefepime needs to be completed IV iron infusions will also be restarted 08/04/20: Pt was too obese to undergo MRI yesterday Will likely need to wait until she can go to higher-level at discharge as an outpatient for MRI Overall doing okay Pseudomonas UTI, awaiting culture Appreciate Dr. Cabrera 08/03/20: MRI of the lumbar spine will be done today with Valium taken 1hr before fo 5mg Tolerating IV iron infusions Overall feels like she is doing well 08/02/20: Patient doing better Spasms noted right back which are profound I reviewed [facility] chart regarding workup for those spasms and it appears that she did not receive an MRI so will order that since this is delaying her recovery and her recent bacteremia will need with and without contrast to be sure there is no seeding of bacteria Nose dry so ordered saline nasal spray CPAP used at bedside and talked about knee braces 08/01/20: Patient doing well today BM Urinary system improved on new meds from Urology Pain controlled No 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 07/31/20: at bedside today Flexeril helps back pain Used CPAP last night BM+ No falls Feels improved Fogginess in thought process noted at times Midline placed for IV iron and she has not received iron before IV but has anemia nursing home Patient settling in RIght back and leg pain improved Worse CPAP last night Dr Cabrera consulted for night time polyuria and incontinence 2+ edema lower legs still KRISTEN wraps placed due to intolerance to GERARDO hose Hgb 10.4 Iron pending Checked meds and labs Conferred with RN Reviewed therapy notes Review of Systems Musculoskeletal: arm pain, back pain, leg pain Focused Exam Lactate Level Objective Exam Vital Signs Vital Signs Date Time Temp Pulse Resp B/P (MAP) Pulse Ox O2 Delivery O2 Flow Rate FiO2 08/10/20 21:33 Room Air 08/10/20 20:30 78 110/58 (75) 08/10/20 15:54 36.0 16 97 Capillary Refill : Less Than 3 Seconds General Appearance: No Apparent Distress, WD/WN, Chronically ill, Obese HEENT: PERRL/EOMI, Normal ENT Inspection, Pharynx Normal Neck: Full Range of Motion, Normal Inspection, Non Tender, Supple, Carotid Bru it Respiratory: Chest Non Tender, Lungs Clear, Normal Breath Sounds, No Accessory Muscle Use, No Respiratory Distress Cardiovascular: Regular Rate, Rhythm, No Edema, No Gallop, No JVD, No Murmur, Normal Peripheral Pulses Gastrointestinal: Normal Bowel Sounds, No Organomegaly, No Pulsatile Mass, Non Tender, Soft Back: Normal Inspection, Decreased Range of Motion, Muscle Spasm, Vertebral Tenderness Extremity: Normal Capillary Refill, Normal Inspection, Normal Range of Motion, Non Tender, No Calf Tenderness, No Pedal Edema, Swelling (left inner upper arm) Neurologic/Psychiatric: Alert, Oriented x3, No Motor/Sensory Deficits, Normal Mood/Affect, car hostler II-XII Norm as Tested, Abnormal Gait, Motor Weakness Skin: Normal Color, Warm/Dry Lymphatic: No Adenopathy Results/Procedures Lab Laboratory Tests 08/10/20 06:00 Patient resulted labs reviewed. FIM Transfers Therapy Code Descriptions/Definitions Functional [place] Measure: 0=Not Assessed/NA 4=Minimal Assistance 1=Total Assistance 5=Supervision or Setup 2=Maximal Assistance 6=Modified [place] 3=Moderate Assistance 7=Complete IndependenceSCALE: Activities may be completed with or without assistive devices. 6-Xrguiegozy-hibkmfo completes the activity by him/herself with no assistance from a helper. 5-Set-up or Clean-up Assistance-helper sets up or cleans up; patient completes activity. [place] assists only prior to or following the activity. 4-Supervision or Touching Assistance-helper provides verbal cues and/or touching/steadying and/or contact guard assistance as patient completes ac tivity. Assistance may be provided throughout the activity or intermittently. 3-Partial/Moderate Assistance-helper does LESS THAN HALF the effort. [place] lifts, holds or supports trunk or limbs, but provides less than half the effort. 2-Substantial/Maximal Assistance-helper does MORE THAN HALF the effort. [place] lifts or holds trunk or limbs and provides more than half the effort. 1-Jwbptlcwu-fcqowv does ALL the effort. Patient does none of the effort to complete the activity. Or, the assistance of 2 or more helpers is required for the patient to complete the activity. If activity was not attempted, code reason: 7-Patient Refused. 9-Not Applicable-not attempted and the patient did not perform the activity before the current illness, exacerbation or injury. 10-Not Attempted due to Environmental Limitations-(lack of equipment, weather restraints, etc.). 88-Not Attempted due to Medical Conditions or Safety Concerns. Roll Left to Right (QC): 6 Sit to Lying (QC): 4 Sit to Stand (QC): 4 Chair/Jur-rv-Ifhht Xfer(QC): 4 Car Transfer (QC): 3 Gait Training Does the Patient Walk?: Yes Distance: 5' Walk 10 feet (QC): 5 Walk 50 ft with 2 Turns(QC): 5 Walk 150 ft (QC): 5 Walking 10ft/uneven surface-QC: 3 (min assist for balance and safety. ) Gait Persons Needed: 1 Gait Assistive Device: FWW Wheelchair Training Does the Pt Use a Wheelchair?: Yes Wheel 50 ft with 2 turns (QC): 4 Wheel 150 ft (QC): 6 Type of Wheelchair: Manual Stair Training 1 Step (curb) (QC): 88 (approached step but pt unable to safely attempt; fall risk noted. ) 4 Steps (QC): 88 12 Steps (QC): 88 Balance Picking up an Object (QC): 88 (functional weakness and balance deficit limit safety to attempt this task) ADL-Treatment Eating (QC): 6 (Using clinical judgement, pt able to complete own meal set up and use regular utensils to eat.) Oral Hygiene (QC): 4 Bathing Location: L Arm, R Arm, L Upper Leg, R Upper Leg, L Lower Leg (including foot), R Lower Leg (including foot), Chest, Abdomen, Buttocks (SBA), Perineal Area Shower/Bathe Self (QC): 4 Upper Body Dressing (QC): 5 Lower Body Dressing (QC): 4 On/Off Footwear (QC): 5 Toileting Hygiene (QC): 4 Toilet Transfer (QC): 4 Assessment/Plan Assessment and Plan Assess & Plan/Chief Complaint Assessment: Severe back pain with debility after 20 days hospital course at [facility] MSSA bacteremia HTN HLP Thrombocytosis Obesity GRUPO on CPAP Plan: Monitor labs Check iron level IRF protocol Fall risk 07/31/20: IV iron infusion ordered after midline Pain control IRF protocol 08/01/20: Continue IV iron infusions via midline Improved overall Pain controlled 08/02/20: MRI L-spine with and without IV contrast since [facility] had not completed one due to bacteremia issues taking precedence and this is delaying recovery and participation in her therapy. CPAP use nightly and slept well Knee braces per PT tomorrow recs as requested 08/03/20: Obtain MRI today at the lumbar spine Continue IV iron infusions Could not tolerate MRI due to anxiety even after Valium given and could not fit due to obesity 08/04/20: Obtain MRI as an outpatient Monitor pain Rehab protocol UCx pending 08/05/20: Start Cefepime for pseudomonas UTI Replace mid-line Start iron infusions since restarting mid line Monitor loose stools 08/06/20: IV abx Iron infusions Monitor pain 08/07/20: Abx Labs obtained Dr Cohen consult 08/08/20: Monitor midline Complete abx Pain control 08/09/20: Complete IV abx Pain control Check labs in am 08/10/20: Labs reviewed USG left upper arm due to midline irritation Monitor urinary issues (1) Debility (2) Back pain (3) Type 2 myocardial infarction (4) GRUPO on CPAP (5) Obesity, morbid, BMI 40.0-49.9 (6) Edema (7) MSSA (methicillin susceptible Staphylococcus aureus) septicemia KRYSTIAN LLANES DO Aug 10, 2020 05:33
[2020-08-10 06:16] LABS: BASOPHILS # (AUTO) 0.1 10^3/uL (0.0-0.1); BASOPHILS % (AUTO) 1 % (0-10); EOSINOPHILS # (AUTO) 0.2 10^3/uL (0.0-0.3); EOSINOPHILS % (AUTO) 2 % (0-10); HEMATOCRIT 34 % (35-52); HEMOGLOBIN 10.5 g/dL (11.5-16.0); LYMPHOCYTES # (AUTO) 1.9 10^3/uL (1.0-4.0); LYMPHOCYTES % (AUTO) 21 % (12-44); MEAN CORPUSCULAR HEMOGLOBIN 27 pg (25-34); MEAN CORPUSCULAR HGB CONC 31 g/dL (32-36); MEAN CORPUSCULAR VOLUME 88 fL (80-99); MEAN PLATELET VOLUME 9.4 fL (9.0-12.2); MONOCYTES % (AUTO) 12 % (0-12); NEUTROPHILS # (AUTO) 5.7 10^3/uL (1.8-7.8); NEUTROPHILS % (AUTO) 64 % (42-75); PLATELET COUNT 684 10^3/uL (130-400)
[2020-08-10] MEDS: KCL 10 MEQ TAB (MICRO K) PO SCH (06:20)
[2020-08-10] MEDS: CATHETER FLUSH 10 ML SYR IV SCH ×3 (06:21→20:34)
[2020-08-10 06:29] LABS: ALANINE AMINOTRANSFERASE 7 U/L (0-55); ALBUMIN 2.7 GM/DL (3.2-4.5); ALKALINE PHOSPHATASE 142 U/L (40-136); BILIRUBIN,TOTAL 0.4 MG/DL (0.1-1.0); BUN/CREATININE RATIO 12; CALCIUM 8.3 MG/DL (8.5-10.1); CARBON DIOXIDE 25 MMOL/L (21-32); CHLORIDE 100 MMOL/L (98-107); CREATININE SERUM 0.66 MG/DL (0.60-1.30); GFR ESTIMATED > 60; GLUCOSE 90 MG/DL (70-105); POTASSIUM 4.2 MMOL/L (3.6-5.0); SODIUM 134 MMOL/L (135-145); TOTAL PROTEIN 6.6 GM/DL (6.4-8.2)
[2020-08-10 08:18] VITALS: BP 110/68
[2020-08-10] MEDS: buPROPion SR 100 MG (WELLBUTRIN SR) TAB PO SCH ×2 (08:20→20:32)
[2020-08-10] MEDS: PHENAZOPYRIDINE 100 MG (PYRIDIUM) TABLET PO SCH ×3 (08:20→18:03)
[2020-08-10] MEDS: PANTOPRAZOLE 20 MG TABLET (PROTONIX) PO SCH (08:20)
[2020-08-10] MEDS: LEVOTHYROXINE 125 MCG (LEVOTHROID) TABLET PO SCH (08:20)
[2020-08-10] MEDS: ENOXAPARIN 40 MG/0.4 ML (LOVENOX) SYR SC SCH ×2 (08:21→20:33)
[2020-08-10] MEDS: LIDOCAINE 4% (SALONPAS) PATCH TP SCH (08:23)
--- NOTE | 2020-08-10 08:29 | Cardiology Progress Note ---
Subjective Date Seen by Provider: Aug 10, 2020 Time Seen by Provider: 08:27 Subjective/Events-last exam Patient sitting up in chair, denies any chest pain or dyspnea. Review of Systems General: No Chills, No Night Sweats; Fatigue, Malaise; No Appetite, No Other HEENT: No Head Aches, No Visual Changes, No Eye Pain, No Ear Pain, No Dysphasia, No Sinus Congestion, No Post Nasal Drip, No Sore Throat, No Other Pulmonary: No Dyspnea, No Cough, No Pleuritic Chest Pain, No Other Cardiovascular: No: Chest Pain, Palpitations, Orthopnea, Paroxysmal Noc. Dyspnea, Edema, Lt Headedness, Other Focused Exam Lactate Level 08/07/20 12:30: Lactic Acid Level 1.03 Objective-Cardiology Exam Last Set of Vital Signs Vital Signs 08/10/20 08/10/20 08/10/20 05:16 08:18 09:00 Temp 35.4 Pulse 86 Resp 18 B/P (MAP) 110/68 (82) Pulse Ox 95 O2 Delivery Room Air Capillary Refill : Less Than 3 Seconds I&O Intake and Output 08/09/20 23:59 Intake Total 1720 ml Balance 1720 ml Intake Oral 1700 ml IV Total 20 ml # Voids 4 # Bowel Movements 1 General: Alert, Oriented X3, Cooperative HEENT: Atraumatic, PERRLA Neck: Supple, No JVD, No Thyromegaly Lungs: Clear to Auscultation, Normal Air Movement Heart: Regular Rate, Normal S1, Normal S2, No Murmurs Abdomen: Normal Bowel Sounds, Soft, No Tenderness, No Hepatosplenomegaly, No Masses Extremities: No Clubbing, No Cyanosis, No Edema, Normal Pulses, No Tenderness/Swelling Skin: No Rashes, No Breakdown, No Significant Lesion Neuro: Normal Gait, Normal Speech, Strength at 5/5 X4 Ext, Normal Tone, Sensation Intact Psych/Mental Status: Mental Status NL, Mood NL Results Lab Laboratory Tests 08/10/20 06:00 A/P-Cardiology Admission Diagnosis UTI Hypotension Anemia Hypokalemia Assessment/Plan UTI sepsis, Recent pneumonia, continue antibiotics. History of hypertension, having borderline hypotension, I will decrease Lopressor and Lisinopril, continue to monitor. Hyponatremia, deferred to the primary team. Anemia, unclear etiology. Hypokalemia, replaced and improved, continue to monitor. Borderline positive cardiac enzymes in [facility]. Borderline positive cardia c enzymes with severe systemic illness. Was labeled as type II myocardial infarction. No further chest pain or shortness of breath. echocardiogram showed normal LV function with no wall motion abnormalities. Has appt with Dr. Maldonado as outpatient. Patient was seen and evaluated with Ashley, examination performed, management plan was discussed, agree with the current scribed note, I made few changes to the note using Italic font Patient is feeling better, was borderline hypotensive, discussed the management plan, will decrease Lopressor and lisinopril and monitor blood pressure as an outpatient Clinical Quality Measures DVT/VTE Risk/Contraindication: Risk Factor Score Per Nursin RFS Level Per Nursing on Admit: 1=Low/No VTE PPX ASHLEY ONTIVEROS Aug 10, 2020 8:29 am SANDRA CONTRERAS MD Aug 10, 2020 11:36 am
[2020-08-10] MEDS: FUROSEMIDE 20 MG (LASIX) TAB PO SCH (09:47)
[2020-08-10] MEDS: DOCUSATE SODIUM 100 MG (COLACE) CAP PO SCH ×2 (09:47→20:34)
[2020-08-10] MEDS: polyethylene glycoL POWDER 17 GM (MIRALAX) PACK PO SCH ×2 (09:48→20:34)
[2020-08-10] MEDS: lisINopril 20 MG (PRINIVIL) TABLET PO SCH (09:48)
[2020-08-10] MEDS: meTOprolol TARTRATE 50 MG (LOPRESSOR) TAB PO SCH (09:48)
[2020-08-10] MEDS: SENNA W/DOCUSATE (SENOKOT S) TABLET PO SCH ×2 (09:48→20:34)
--- NOTE | 2020-08-10 10:28 | Occupational Ther Daily Note ---
OT Current Status-Daily Note Subjective Pt alert, sitting in recliner when OT entered. Pt agreed to therapy. No c/o pain reported. Mental Status/Objective Patient Orientation: Person, Place, Time, Situation ADL-Treatment Pt agreed to taking to shower. Pt sit-stand from raised recliner to FWW, i ndependently. Pt ambulated using FWW to cabinets in room to pick and shovel worker clothing. Pt then ambulated to bathroom and transferred to shower bench, independently. Pt then doffed upper body dressing independently. While standing, pt hiked pants down hips, close SBA due to pt fatigue quickly. Pt then used dressing stick to thread B feet out pants and to doff socks. Pt required shower bench, grabbars, hand held shower head, and long handled sponge to complete shower. Pt was able to cleanse upper arms, upper/lower legs, chest, abdomen, emilia, buttocks(side to side while sitting). After shower, pt transferred from shower bench to w/c, close SBA. Pt was to don upper body dressing, independently. Pt required dressing stick to thread B feet into briefs and pants. While standing, pt hiked lower body dressing over hips with close SBA due to fatiguing. Pt then donned socks using sock aid, independently. Pt then wheeled to sink and completed oral care independently while sitting in w/c. Pt then wheeled to gym. Therapy Code Descriptions/Definitions Functional [place] Measure: 0=Not Assessed/NA 4=Minimal Assistance 1=Total Assistance 5=Supervision or Setup 2=Maximal Assistance 6=Modified [place] 3=Moderate Assistance 7=Complete IndependenceSCALE: Activities may be completed with or without assistive devices. 7-Jcssdxrjpa-ugsxaxn completes the activity by him/herself with no assistance from a helper. 5-Set-up or Clean-up Assistance-helper sets up or cleans up; patient completes activity. [place] assists only prior to or following the activity. 4-Supervision or Touching Assistance-helper provides verbal cues and/or touching/steadying and/or contact guard assistance as patient completes activity. Assistance may be provided throughout the activity or intermittently. 3-Partial/Moderate Assistance-helper does LESS THAN HALF the effort. [place] lifts, holds or supports trunk or limbs, but provides less than half the effort. 2-Substantial/Maximal Assistance-helper does MORE THAN HALF the effort. [place] lifts or holds trunk or limbs and provides more than half the effort. 8-Cjjpmrkee-jhllal does ALL the effort. Patient does none of the effort to complete the activity. Or, the assistance of 2 or more helpers is required for the patient to complete the activity. If activity was not attempted, code reason: 7-Patient Refused. 9-Not Applicable-not attempted and the patient did not perform the activity before the current illness, exacerbation or injury. 10-Not Attempted due to Environmental Limitations-(lack of equipment, weather restraints, etc.). 88-Not Attempted due to Medical Conditions or Safety Concerns. Eating (QC): 6 (per clinical judgement) Oral Hygiene (QC): 6 Bathing Location: L Arm, R Arm, L Upper Leg, R Upper Leg, L Lower Leg (including foot), R Lower Leg (including foot), Chest, Abdomen, Buttocks, Perineal Area Shower/Bathe Self (QC): 6 Upper Body Dressing (QC): 6 Lower Body Dressing (QC): 6 On/Off Footwear: 6 Toileting Hygiene (QC): 4 (per clinical judgement, close SBA due to fatigue quickly using toilet aid tongs) Toilet Transfer (QC): 6 (per clinical judgement) Other Treatment Once in gym pt completed B UE strengthening task by taking objects across arch while standing for strengthening UE and functional dynamic balance to complete ADLs. Pt completed pinch/tobacco baler strengthening activity while standing for daily task. Pt had to pinch/tobacco baler different resistive clothes pin(Yellow-least resistive, green, red, blue and black-most resistive) to different sized poles. Pt was able to grasp and pinch each clothes and put them on and off the poles (yellow, green, and red on the skinnier poles. Blue and black on the thicker.) Pt completed pinch/tobacco baler strengthening task while seated using theraputty for ADL task. Pt had to pinch/grasp beads out of medium resistive theraputty then placed beads back into putty. Pt was then educated on hand exercise program using theraputty. Pt verbalized understanding and was able to return demonstration. Pt required skilled instruction and handout for exercises. Pt then ambulated back to room sat in recliner. Call light/phone in reach. All needs met. Education OT Patient Education: Exercise program Teaching Recipient: Patient Teaching Methods: Demonstration, Handout, Discussion Response to Teaching: Verbalize Understanding, Return Demonstration OT Short Term Goals Short Term Goals Time Frame: Aug 05, 2020 Eatin Oral hygiene: 5 Toileting hygiene: 3 Shower/bathe self: 3 Upper body dressin Lower body dressin Putting on/taking off footwear: 4 OT House Cleaner Supervisor Goals Half-Way Goals Time Frame: Aug 12, 2020 Eating (QC): 6 (met, per clinical judgement) Oral Hygiene (QC): 6 (met) Toileting Hygiene (QC): 6 (not met, close SBA due to fatigue quickly using toilet aid tongs) Shower/Bathe Self (QC): 4 (met) Upper Body Dressing (QC): 6 (met) Lower Body Dressing (QC): 6 (not met, close SBA when hiking pants due to fatigue quickly) On/Off Footwear (QC): 6 (using AE, met) Additional Goals: 1-Demonstrate ADL Tasks, 2-Verbalize Understanding, 3- ImproveStrength/Sandra 1=Demonstrate adherence to instructed precautions during ADL tasks. 2=Patient will verbalize/demonstrate understanding of assistive devices/modifications for ADL. 3=Patient will improve strength/tolerance for activity to enable patient to perform ADL's. OT Education/Plan Problem List/Assessment Assessment: Decreased Activ Tolerance Discharge Recommendations Plan/Recommendations: Discharge/Goals Met Treatment Plan/Plan of Care Patient would benefit from OT for education, treatment and training to promote i ndependence in ADL's, mobility, safety and/or upper extremity function for ADL's. Plan of Care: ADL Retraining, Functional Mobility, UE Funct Exercise/Act Treatment Duration: Aug 12, 2020 Frequency: At least 5 of 7 days/Wk (IRF) Estimated Hrs Per Day: 1.5 hours per day Agreement: Yes Rehab Potential: Good Time/GCodes Start Time: 09:00 Stop Time: 10:30 Total Time Billed (hr/min): 90 Billed Treatment Time 1 visit- ADL 4 (60 mins) EX 2 (30 mins) VENTURA MILES Aug 10, 2020 10:28
--- NOTE | 2020-08-10 11:54 | Physical Therapy Daily Note ---
PT Daily Note-Current Subjective Pt.states she feels she is better overall. Still gets SOB with gait. Expects to have some diagnostics done to check the infiltration in L arm. "I havent seen my grandchildren for a month and I hope they havent forgotten me" Pain Location: No Pain Reported Mental Status Patient Orientation: Normal For Age Attachments: Other-See Comments (mask while out of room for Rx) Transfers SCALE: Activities may be completed with or without assistive devices. 6-Ycotypnzul-yczdkpq completes the activity by him/herself with no assistance from a helper. 5-Set-up or Clean-up Assistance-helper sets up or cleans up; patient completes activity. [place] assists only prior to or following the activity. 4-Supervision or Touching Assistance-helper provides verbal cues and/or touching/steadying and/or contact guard assistance as patient completes activity. Assistance may be provided throughout the activity or intermittently. 3-Partial/Moderate Assistance-helper does LESS THAN HALF the effort. [place] lifts, holds or supports trunk or limbs, but provides less than half the effort. 2-Substantial/Maximal Assistance-helper does MORE THAN HALF the effort. [place] lifts or holds trunk or limbs and provides more than half the effort. 2-Kidqbsmli-vmhric does ALL the effort. Patient does none of the effort to complete the activity. Or, the assistance of 2 or more helpers is required for the patient to complete the activity. If activity was not attempted, code reason: 7-Patient Refused. 9-Not Applicable-not attempted and the patient did not perform the activity before the current illness, exacerbation or injury. 10-Not Attempted due to Environmental Limitations-(lack of equipment, weather restraints, etc.). 88-Not Attempted due to Medical Conditions or Safety Concerns. Roll Left & Right (QC): 6 Sit to Lying (QC): 6 Lying to Sitting/Side of Bed(Q: 6 Sit to Stand (QC): 6 Chair/[place] Xfer(QC): 6 Toilet Transfer (QC): 6 Car Transfer (QC): 6 all TRFs are slow, fatigue pt. and she requires time and rest breaks but she is indep Weight Bearing Full Weight Bearing Full Weight Bearing Gait Training Does the Patient Walk?: Yes Walk 10 feet (QC): 6 Walk 50 ft with 2 Turns(QC): 6 Walk 150 ft (QC): 6 Walking 10ft/uneven surface-QC: 6 Gait Persons Needed: 0 Gait Assistive Device: FWW slow, heavy wt bearing on FWW, needs standing rest breaks and sitting rest breaks, antalgic but no LOB Stair Training Stair Training: Handrails/: 2 handrails #of Steps: 1 1 Step (curb) (QC): 3 4 Steps (QC): 88 12 Steps (QC): 88 Stairs: Pattern: Step to pt. has one step at home, no steps at work, has not ascended steps in many years, pt. ascended 1 step with bilat rails and required mod assist for balance and stability, attempting further steps was not advisable. Balance Picking up an Object (QC): 5 Exercises Supine Ex: Bridging (unable to clear bed/Rx table), Ankle pumps, Quad Set, Rolling, Glut sets, Heel Slides, Short Arc Quads, Scooting, Straight leg raise, Hip abd/add Supine Reps: 10 Seated Therapy Exercises: Ankle pumps, Sit to stand, Long arc quads, Hip flexion, Hip abd/add Seated Reps: 10 Assessment Current Status: Good Progress pt. fatigues easily with all activity and needs rest breaks. SOB with activity , recovering quickly with rest PT Short Term Goals Short Term Goals Time Frame: Aug 05, 2020 Lying to sitting on side of be: 4 Sit to stand: 4 Walk 50 feet with two turns: 4 Walk 150 feet: 4 1 step (curb): 3 PT Intermediate Goals Reed Fixer Goals PT Intermediate Goals Time Frame: Aug 19, 2020 Roll Left & Right (QC): 6 Sit to Lying (QC): 6 Lying-Sitting on Side/Bed(QC): 6 Sit to Stand (QC): 6 Chair/Aqr-cg-Cgczb Xfer(QC): 6 Toilet Transfer (QC): 6 Car Transfer (QC): 6 Does the Patient Walk: Yes Walk 10 feet (QC): 6 Walk 50ft with 2 Turns (QC): 6 Walk 150 ft (QC): 6 Walking 10ft on Uneven Surface: 5 1 Step (curb) (QC): 6 4 Steps (QC): 6 12 Steps (QC): 5 Picking up an Object (QC): 5 Does the Pt use WC or Scooter?: No Wheel 50 feet with 2 turns (QC: 9 Wheel 150 feet: 9 PT Plan Treatment/Plan Treatment Plan: Continue Plan of Care Treatment Plan: Bed Mobility, Education, Functional Activity Sandra, Functional Strength, Group Therapy, Gait, Safety, Therapeutic Exercise, Transfers Treatment Duration: Aug 19, 2020 Frequency: At least 5 of 7 days/Wk (IRF) Estimated Hrs Per Day: 1.5 hours per day Patient and/or Family Agrees t: Yes Safety Risks/Education Patient Education: Gait Training, Transfer Techniques, Steps, Correct Positioning, Disease Process, Safety Issues Teaching Recipient: Patient Teaching Methods: Demonstration, Discussion Response to Teaching: Verbalize Understanding, Return Demonstration, Reinforcement Needed Time/GCodes Time In: 1100 Time Out: 1200 Total Billed Treatment Time: 60 Total Billed Treatment 1,GT15m,FA25m,EX20m LUIS EDUARDO MCKEON JIG OPERATOR Aug 10, 2020 11:54
--- NOTE | 2020-08-10 13:29 | Diagnostic Imaging Report ---
PROCEDURE: US venous upper extremity left. TECHNIQUE: Multiple realtime grayscale images were obtained of left upper extremity in various projections. Additional spectral analysis and color Doppler duplex images were also obtained. INDICATION: Swelling post midline infiltration. COMPARISON: There are no prior studies available for comparison. FINDINGS: This study was technically difficult due to the patient's body habitus. There is good blood flow and compressibility throughout the deep venous system. There is no evidence for deep venous thrombosis. In the distal half of the upper arm, there is a 2.1 x 5.0 cm area of slightly altered echogenicity. This could be secondary to hematoma formation. There is no active bleeding noted. IMPRESSION: 1. There is no evidence for deep venous thrombosis. 2. The area of altered echogenicity in the lower upper arm is of uncertain etiology but may be related to hematoma formation. If further study is desired, then a short-term (2-4 week) follow-up ultrasound exam would be recommended. Dictated by: Dictated on workstation # [id number]
--- NOTE | 2020-08-10 14:41 | Physical Therapy Daily Note ---
PT Daily Note-Current Subjective Pt. states she is really tired this afternoon, requests exercises in the room. Mental Status Patient Orientation: Person, Place, Time, Situation Transfers SCALE: Activities may be completed with or without assistive devices. 3-Lawaobauaa-filxmzi completes the activity by him/herself with no assistance from a helper. 5-Set-up or Clean-up Assistance-helper sets up or cleans up; patient completes activity. [place] assists only prior to or following the activity. 4-Supervision or Touching Assistance-helper provides verbal cues and/or touching/steadying and/or contact guard assistance as patient completes activity. Assistance may be provided throughout the activity or intermittently. 3-Partial/Moderate Assistance-helper does LESS THAN HALF the effort. [place] lifts, holds or supports trunk or limbs, but provides less than half the effort. 2-Substantial/Maximal Assistance-helper does MORE THAN HALF the effort. [place] lifts or holds trunk or limbs and provides more than half the effort. 3-Qhpoiucgp-ceeezt does ALL the effort. Patient does none of the effort to complete the activity. Or, the assistance of 2 or more helpers is required for the patient to complete the activity. If activity was not attempted, code reason: 7-Patient Refused. 9-Not Applicable-not attempted and the patient did not perform the activity before the current illness, exacerbation or injury. 10-Not Attempted due to Environmental Limitations-(lack of equipment, weather restraints, etc.). 88-Not Attempted due to Medical Conditions or Safety Concerns. Sit to Lying (QC): 6 Lying to Sitting/Side of Bed(Q: 4 Sit to Stand (QC): 6 Weight Bearing Full Weight Bearing Full Weight Bearing Exercises Supine Ex: Ankle pumps, Quad Set, Glut sets, Short Arc Quads, Hip abd/add Supine Reps: 20 Seated Therapy Exercises: Ankle pumps, Long arc quads, Hip flexion, Hip abd/add Seated Reps: 20 Standing: Heel/toe raises, Marching, Sit to Stand Standing Reps: 20 Treatments LE exercises Assessment Current Status: Good Progress Pt. needed min A to transfer supine to sit. Overall good performance with exercises but does fatigue quickly. Pt. returned to supine position in bed, call light in reach and all needs met. PT Short Term Goals Short Term Goals Time Frame: Aug 05, 2020 Lying to sitting on side of be: 4 Sit to stand: 4 Walk 50 feet with two turns: 4 Walk 150 feet: 4 1 step (curb): 3 PT Sugar Refinery Supervisor Goals Chcf Goals PT [facility]cf Goals Time Frame: Aug 19, 2020 Roll Left & Right (QC): 6 Sit to Lying (QC): 6 Lying-Sitting on Side/Bed(QC): 6 Sit to Stand (QC): 6 Chair/Zdh-sp-Golpi Xfer(QC): 6 Toilet Transfer (QC): 6 Car Transfer (QC): 6 Does the Patient Walk: Yes Walk 10 feet (QC): 6 Walk 50ft with 2 Turns (QC): 6 Walk 150 ft (QC): 6 Walking 10ft on Uneven Surface: 5 1 Step (curb) (QC): 6 4 Steps (QC): 6 12 Steps (QC): 5 Picking up an Object (QC): 5 Does the Pt use WC or Scooter?: No Wheel 50 feet with 2 turns (QC: 9 Wheel 150 feet: 9 PT Plan Treatment/Plan Treatment Plan: Continue Plan of Care Treatment Plan: Bed Mobility, Education, Functional Activity Sandra, Functional Strength, Group Therapy, Gait, Safety, Therapeutic Exercise, Transfers Treatment Duration: Aug 19, 2020 Frequency: At least 5 of 7 days/Wk (IRF) Estimated Hrs Per Day: 1.5 hours per day Patient and/or Family Agrees t: Yes Time/GCodes Time In: 1417 Time Out: 1447 Total Billed Treatment Time: 30 Total Billed Treatment 1, Ex 30' ANGIE MOORE PT Aug 10, 2020 14:40
[2020-08-10 15:54] VITALS: BP 109/61
[2020-08-10 20:30] VITALS: BP 110/58
[2020-08-10] MEDS: IMIPRAMINE 25 MG (TOFRANIL) TAB PO SCH (20:32)
[2020-08-10] MEDS: LIDOCAINE PATCH REMOVAL TP SCH (20:34)
[2020-08-10] MEDS ORDERED: meTOprolol TARTRATE 25 MG (LOPRESSOR) TABLET PO SCH (21:00)
[2020-08-11] MEDS: CATHETER FLUSH 10 ML SYR IV SCH (06:35)
[2020-08-11] MEDS: KCL 10 MEQ TAB (MICRO K) PO SCH (06:35)
[2020-08-11] MEDS: buPROPion SR 100 MG (WELLBUTRIN SR) TAB PO SCH (08:00)
[2020-08-11] MEDS: PHENAZOPYRIDINE 100 MG (PYRIDIUM) TABLET PO SCH (08:00)
[2020-08-11] MEDS: PANTOPRAZOLE 20 MG TABLET (PROTONIX) PO SCH (08:00)
[2020-08-11] MEDS: LEVOTHYROXINE 125 MCG (LEVOTHROID) TABLET PO SCH (08:00)
[2020-08-11] MEDS: LIDOCAINE 4% (SALONPAS) PATCH TP SCH (08:00)
[2020-08-11 08:01] VITALS: BP 100/57
[2020-08-11] MEDS: ENOXAPARIN 40 MG/0.4 ML (LOVENOX) SYR SC SCH (08:01)
[2020-08-11] MEDS ORDERED: PHEN-826 PO (08:19)
[2020-08-11] MEDS ORDERED: CYCL10TA9 PO (08:19)
[2020-08-11] MEDS ORDERED: POTA10TA6 PO (08:19)
[2020-08-11] MEDS ORDERED: SENN-20 PO (08:19)
[2020-08-11] MEDS ORDERED: METH1ADH11 TP (08:19)
[2020-08-11] MEDS ORDERED: TRAM50TA3 PO (08:19)
--- NOTE | 2020-08-11 08:21 | D/C HH Face to Face Order ---
D/C Face to Face Orders Reconcile Patient Problems Problems Reviewed?: Yes Instructions for Patient [facility], Patient Instructions/FollowUp: PCP 1 week Physician to follow Patient: PCP Discharge Diet for Home: No Restrictions Patient Problems: Back pain Debility Hypotension Patient Data-Allergies,Ht & Wt Patient Allergies: Coded Allergies: Penicillins (Verified Allergy, Unknown, 08/02/20) ciprofloxacin (Verified Allergy, Unknown, 08/02/20) Home Health Need/Face to Face Date of Face to Face: Aug 11, 2020 Clinical Findings: Generalized weakness and fatigue, Muscle weakness, Pain with ambulation, Unsteady gait I have seen Pt evvq-rn-wboz: Yes Discharged To: Home Diagnosis/Conditions: Back pain Debility Hypotension Patient is Homebound due to: Muscle weakness, Pain w/ambulation Homebound Status Due to the above stated illness, injury or surgical procedure (medical condition or diagnosis) and associated clinical findings, the patient is homebound because of his/her inability to leave home except with aid of a supportive device and/or person AND leaving the home requires a considerable and taxing effort or is medically contraindicated. Pt req the following assistanc: Walker Home Health Nursing Orders Home Health Services Order: Nursing Services, Waste Transportation Technician-Evaluate & Treat, Physical Therapy-Evaluate & Treat Home Health Infusion Therapy Line Start Date: Aug 05, 2020 Certify Stmt I certify that this patient is under my care and that I, a nurse practitioner or a physician; a anesthetic assistant working with me, had a face to face encounter that - meets the physician face to face encounter requirements with this patient as dated. KRYSTIAN LLANES DO Aug 11, 2020 08:21
--- NOTE | 2020-08-11 08:22 | Discharge Summary ---
Diagnosis/Chief Complaint Date of Admission Jul 29, 2020 at 11:30 Date of Discharge Discharge Date: Aug 11, 2020 Discharge Diagnosis Assessment: Severe back pain with debility after 20 days hospital course at [facility] MSSA bacteremia HTN HLP Thrombocytosis Obesity GRUPO on CPAP Plan: Monitor labs Check iron level IRF protocol Fall risk 07/31/20: IV iron infusion ordered after midline Pain control IRF protocol 08/01/20: Continue IV iron infusions via midline Improved overall Pain controlled 08/02/20: MRI L-spine with and without IV contrast since Sharon had not completed one due to bacteremia issues taking precedence and this is delaying recovery and participation in her therapy. CPAP use nightly and slept well Knee braces per PT tomorrow recs as requested 08/03/20: Obtain MRI today at the lumbar spine Continue IV iron infusions Could not tolerate MRI due to anxiety even after Valium given and could not fit due to obesity 08/04/20: Obtain MRI as an outpatient Monitor pain Rehab protocol UCx pending 08/05/20: Start Cefepime for pseudomonas UTI Replace mid-line Start iron infusions since restarting mid line Monitor loose stools 08/06/20: IV abx Iron infusions Monitor pain 08/07/20: Abx Labs obtained Dr Cohen consult 08/08/20: Monitor midline Complete abx Pain control 08/09/20: Complete IV abx Pain control Check labs in am 08/10/20: Labs reviewed USG left upper arm due to midline irritation Monitor urinary issues (1) Debility (2) Back pain (3) Type 2 myocardial infarction (4) GRUPO on CPAP (5) Obesity, morbid, BMI 40.0-49.9 (6) Edema (7) MSSA (methicillin susceptible Staphylococcus aureus) septicemia Discharge Summary Discharge Physical Examination Allergies: Coded Allergies: Penicillins (Verified Allergy, Unknown, 08/02/20) ciprofloxacin (Verified Allergy, Unknown, 08/02/20) Vitals & I&Os Vital Signs Date Time Temp Pulse Resp B/P (MAP) Pulse Ox O2 Delivery O2 Flow Rate FiO2 08/11/20 11:00 36.0 81 16 100/57 97 Room Air General Appearance: Alert, Oriented X3, Cooperative Respiratory: Clear to Auscultation Cardiovascular: Regular Rate Neuro: Normal Gait, Normal Speech, Strength at 5/5 X4 Ext Psych/Mental Status: Mental Status NL Hospital Course Was the Problem List Reviewed?: Yes Hospital Course: Pt had a somewhat uneventful hospital course for two weeks when she came from [facility] after severe back pain and MSSA staph sepsis with bacteremia. She participated in therapy, was able to navigate and regain back to near baseline. The only pain medication she was talking was Flexeril and she did have an episode of mild hypotension not affiliated with sepsis. She was found to have pseudomonas UTI treated by urology along with initiated of Detrol for incontinence. Overall she was stable for DC and was ready to receive home health at time of discharge with close follow up with her PCP. Labs (last 24 hrs) Laboratory Tests 07/29/20 11:30: Lab Scanned Report Referred Lab Report 07/30/20 05:57: White Blood Count 4.3, Red Blood Count 4.06L, Hemoglobin 10.9L, Hematocrit 35, Mean Corpuscular Volume 87, Mean Corpuscular Hemoglobin 27, Mean Corpuscular Hemoglobin Concent 31L, Red Cell Distribution Width 14.7H, Platelet Count 551H, Mean Platelet Volume 8.7, Neutrophils (%) (Auto) 49, Lymphocytes (%) (Auto) 31, Monocytes (%) (Auto) 18H, Eosinophils (%) (Auto) 1, Basophils (%) (Auto) 1, Neutrophils # (Auto) 2.1, Lymphocytes # (Auto) 1.4, Monocytes # (Auto) 0.8, Eosinophils # (Auto) 0.1, Basophils # (Auto) 0.0, Sodium Level 137, Potassium Level 3.7, Chloride Level 100, Carbon Dioxide Level 24, Anion Gap 13, Blood Urea Nitrogen 8, Creatinine 0.64, Estimat Glomerular Filtration Rate > 60, BUN/Creatinine Ratio 13, Glucose Level 92, Calcium Level 8.3L, Corrected Calcium 9.2, Iron Level 14L, Total Bilirubin 0.3, Aspartate Amino Transf (AST/SGOT) 24, Alanine Aminotransferase (ALT/SGPT) 6, Alkaline Phosphatase 110, Total Protein 7.0, Albumin 2.9L 08/03/20 06:21: White Blood Count 5.4, Red Blood Count 3.95L, Hemoglobin 10.5L, Hematocrit 34L, Mean Corpuscular Volume 86, Mean Corpuscular Hemoglobin 27, Mean Corpuscular Hemoglobin Concent 31L, Red Cell Distribution Width 15.1H, Platelet Count 521H, Mean Platelet Volume 8.8, Neutrophils (%) (Auto) 46, Lymphocytes (%) (Auto) 33, Monocytes (%) (Auto) 16H, Eosinophils (%) (Auto) 5, Basophils (%) (Auto) 0, Neutrophils # (Auto) 2.5, Lymphocytes # (Auto) 1.8, Monocytes # (Auto) 0.9, Eosinophils # (Auto) 0.3, Basophils # (Auto) 0.0, Sodium Level 137, Potassium Level 3.8, Chloride Level 102, Carbon Dioxide Level 24, Anion Gap 11, Blood Urea Nitrogen 9, Creatinine 0.64, Estimat Glomerular Filtration Rate > 60, BUN/Creatinine Ratio 14, Glucose Level 91, Calcium Level 8.2L, Corrected Calcium 9.2, Total Bilirubin 0.3, Aspartate Amino Transf (AST/SGOT) 28, Alanine Aminotransferase (ALT/SGPT) 7, Alkaline Phosphatase 110, Total Protein 6.6, Albumin 2.8L 08/03/20 11:32: Urine Color YELLOW, Urine Clarity CLEAR, Urine pH 7.5, Urine Specific Pecan Gap 1.010L, Urine Protein 2+H, Urine Glucose (UA) NEGATIVE, Urine Ketones NEGATIVE, Urine Nitrite NEGATIVE, Urine Bilirubin NEGATIVE, Urine Urobilinogen 0.2, Urine Leukocyte Esterase 3+H, Urine RBC (Auto) 3+H, Urine RBC >100H, Urine WBC 50-100H , Urine Squamous Epithelial Cells 2-5, Urine Renal Epithelial Cells RARE, Urine Crystals NONE, Urine Bacteria FEWH, Urine Casts NONE, Urine Mucus NEGATIVE, Urine Culture Indicated YES 08/07/20 10:31: Glucometer 88 08/07/20 12:30: White Blood Count 9.1, Red Blood Count 4.04, Hemoglobin 10.8L, Hematocrit 35, Mean Corpuscular Volume 88, Mean Corpuscular Hemoglobin 27, Mean Corpuscular Hemoglobin Concent 31L, Red Cell Distribution Width 15.0H, Platelet Count 637H, Mean Platelet Volume 9.1, Immature Granulocyte % (Auto) 1, Neutrophils (%) (Auto) 62, Lymphocytes (%) (Auto) 21, Monocytes (%) (Auto) 13H, Eosinophils (%) (Auto) 2, Basophils (%) (Auto) 1, Neutrophils # (Auto) 5.6, Lymphocytes # (Auto) 1.9, Monocytes # (Auto) 1.2H, Eosinophils # (Auto) 0.2, Basophils # (Auto) 0.1, Immature Granulocyte # (Auto) 0.1, Sodium Level 133L, Potassium Level 3.3L, Chloride Level 97L, Carbon Dioxide Level 24, Anion Gap 12, Blood Urea Nitrogen 10, Creatinine 0.77, Estimat Glomerular Filtration Rate > 60, BUN/Creatinine Ratio 13, Glucose Level 107H, Lactic Acid Level 1.03, Calcium Level 8.4L, Corrected Calcium 9.3, Total Bilirubin 0.5, Aspartate Amino Transf (AST/SGOT) 27, Alanine Aminotransferase (ALT/SGPT) 10, Alkaline Phosphatase 140H, Total Protein 6.9, Albumin 2.9L, Procalcitonin 0.05 08/10/20 06:00: White Blood Count 9.0, Red Blood Count 3.87, Hemoglobin 10.5L, Hematocrit 34L, Mean Corpuscular Volume 88, Mean Corpuscular Hemoglobin 27, Mean Corpuscular Hemoglobin Concent 31L, Red Cell Distribution Width 15.2H, Platelet Count 684H, Mean Platelet Volume 9.4, Immature Granulocyte % (Auto) 1, Neutrophils (%) (Auto) 64, Lymphocytes (%) (Auto) 21, Monocytes (%) (Auto) 12, Eosinophils (%) (Auto) 2, Basophils (%) (Auto) 1, Neutrophils # (Auto) 5.7, Lymphocytes # (Auto) 1.9, Monocytes # (Auto) 1.0, Eosinophils # (Auto) 0.2, Basophils # (Auto) 0.1, Immature Granulocyte # (Auto) 0.1, Sodium Level 134L, Potassium Level 4.2, Chloride Level 100, Carbon Dioxide Level 25, Anion Gap 9, Blood Urea Nitrogen 8, Creatinine 0.66, Estimat Glomerular Filtration Rate > 60, BUN/Creatinine Ratio 12, Glucose Level 90, Calcium Level 8.3L, Corrected Calcium 9.3, Total Bilirubin 0.4, Aspartate Amino Transf (AST/SGOT) 22, Alanine Aminotransferase (ALT/SGPT) 7, Alkaline Phosphatase 142H, Total Protein 6.6, Albumin 2.7L Microbiology 08/03/20 Urine Culture - Final, Complete Pseudomonas aeruginosa Pending Labs Microbiology Date/Time Source Procedure Growth Status 08/03/20 11:32 Urine Clean Catch Urine Culture - Final Pseudomonas aeruginosa Complete Laboratory Tests 07/29/20 11:30: Lab Scanned Report Referred Lab Report 07/30/20 05:57: White Blood Count 4.3, Red Blood Count 4.06, Hemoglobin 10.9, Hematocrit 35, Mean Corpuscular Volume 87, Mean Corpuscular Hemoglobin 27, Mean Corpuscular Hemoglobin Concent 31, Red Cell Distribution Width 14.7, Platelet Count 551, Mean Platelet Volume 8.7, Neutrophils (%) (Auto) 49, Lymphocytes (%) (Auto) 31, Monocytes (%) (Auto) 18, Eosinophils (%) (Auto) 1, Basophils (%) (Auto) 1, Neutrophils # (Auto) 2.1, Lymphocytes # (Auto) 1.4, Monocytes # (Auto) 0.8, Eosinophils # (Auto) 0.1, Basophils # (Auto) 0.0, Sodium Level 137, Potassium Level 3.7, Chloride Level 100, Carbon Dioxide Level 24, Anion Gap 13, Blood Urea Nitrogen 8, Creatinine 0.64, Estimat Glomerular Filtration Rate > 60, BUN/Creatinine Ratio 13, Glucose Level 92, Calcium Level 8.3, Corrected Calcium 9.2, Iron Level 14, Total Bilirubin 0.3, Aspartate Amino Transf (AST/SGOT) 24, Alanine Aminotransferase (ALT/SGPT) 6, Alkaline Phosphatase 110, Total Protein 7.0, Albumin 2.9 08/03/20 06:21: White Blood Count 5.4, Red Blood Count 3.95, Hemoglobin 10.5, Hematocrit 34, Mean Corpuscular Volume 86, Mean Corpuscular Hemoglobin 27, Mean Corpuscular Hemoglobin Concent 31, Red Cell Distribution Width 15.1, Platelet Count 521, Mean Platelet Volume 8.8, Neutrophils (%) (Auto) 46, Lymphocytes (%) (Auto) 33, Monocytes (%) (Auto) 16, Eosinophils (%) (Auto) 5, Basophils (%) (Auto) 0, Neutrophils # (Auto) 2.5, Lymphocytes # (Auto) 1.8, Monocytes # (Auto) 0.9, Eosinophils # (Auto) 0.3, Basophils # (Auto) 0.0, Sodium Level 137, Potassium Level 3.8, Chloride Level 102, Carbon Dioxide Level 24, Anion Gap 11, Blood Urea Nitrogen 9, Creatinine 0.64, Estimat Glomerular Filtration Rate > 60, BUN/Creatinine Ratio 14, Glucose Level 91, Calcium Level 8.2, Corrected Calcium 9.2, Total Bilirubin 0.3, Aspartate Amino Transf (AST/SGOT) 28, Alanine Aminotransferase (ALT/SGPT) 7, Alkaline Phosphatase 110, Total Protein 6.6, Albumin 2.8 08/03/20 11:32: Urine Color YELLOW, Urine Clarity CLEAR, Urine pH 7.5, Urine Specific Pecan Gap 1.010, Urine Protein 2+, Urine Glucose (UA) NEGATIVE, Urine Ketones NEGATIVE, Urine Nitrite NEGATIVE, Urine Bilirubin NEGATIVE, Urine Urobilinogen 0.2, Urine Leukocyte Esterase 3+, Urine RBC (Auto) 3+, Urine RBC >100, Urine WBC 50-100, Urine Squamous Epithelial Cells 2-5, Urine Renal Epithelial Cells RARE, Urine Crystals NONE, Urine Bacteria FEW, Urine Casts NONE, Urine Mucus NEGATIVE, Urine Culture Indicated YES 08/07/20 10:31: Glucometer 88 08/07/20 12:30: White Blood Count 9.1, Red Blood Count 4.04, Hemoglobin 10.8, Hematocrit 35, Mean Corpuscular Volume 88, Mean Corpuscular Hemoglobin 27, Mean Corpuscular Hemoglobin Concent 31, Red Cell Distribution Width 15.0, Platelet Count 637, Mean Platelet Volume 9.1, Immature Granulocyte % (Auto) 1, Neutrophils (%) (Auto) 62, Lymphocytes (%) (Auto) 21, Monocytes (%) (Auto) 13, Eosinophils (%) (Auto) 2, Basophils (%) (Auto) 1, Neutrophils # (Auto) 5.6, Lymphocytes # (Auto) 1.9, Monocytes # (Auto) 1.2, Eosinophils # (Auto) 0.2, Basophils # (Auto) 0.1, Immature Granulocyte # (Auto) 0.1, Sodium Level 133, Potassium Level 3.3, Chloride Level 97, Carbon Dioxide Level 24, Anion Gap 12, Blood Urea Nitrogen 10, Creatinine 0.77, Estimat Glomerular Filtration Rate > 60, BUN/Creatinine Ratio 13, Glucose Level 107, Lactic Acid Level 1.03, Calcium Level 8.4, Corrected Calcium 9.3, Total Bilirubin 0.5, Aspartate Amino Transf (AST/SGOT) 27, Alanine Aminotransferase (ALT/SGPT) 10, Alkaline Phosphatase 140, Total Protein 6.9, Albumin 2.9, Procalcitonin 0.05 08/10/20 06:00: White Blood Count 9.0, Red Blood Count 3.87, Hemoglobin 10.5, Hematocrit 34, Mean Corpuscular Volume 88, Mean Corpuscular Hemoglobin 27, Mean Corpuscular Hemoglobin Concent 31, Red Cell Distribution Width 15.2, Platelet Count 684, Mean Platelet Volume 9.4, Immature Granulocyte % (Auto) 1, Neutrophils (%) (Auto) 64, Lymphocytes (%) (Auto) 21, Monocytes (%) (Auto) 12, Eosinophils (%) (Auto) 2, Basophils (%) (Auto) 1, Neutrophils # (Auto) 5.7, Lymphocytes # (Auto) 1.9, Monocytes # (Auto) 1.0, Eosinophils # (Auto) 0.2, Basophils # (Auto) 0.1, Immature Granulocyte # (Auto) 0.1, Sodium Level 134, Potassium Level 4.2, Chloride Level 100, Carbon Dioxide Level 25, Anion Gap 9, Blood Urea Nitrogen 8, Creatinine 0.66, Estimat Glomerular Filtration Rate > 60, BUN/Creatinine Ratio 12, Glucose Level 90, Calcium Level 8.3, Corrected Calcium 9.3, Total Bilirubin 0.4, Aspartate Amino Transf (AST/SGOT) 22, Alanine Aminotransferase (ALT/SGPT) 7, Alkaline Phosphatase 142, Total Protein 6.6, Albumin 2.7 Discharge Home Medications: Active Scripts Active Salonpas 3.1%-6.0%-10.0% Patch (Methyl Salicylate/Menth/Camph) 1 Each Adh..patch 1 Each TP DAILY Phenazopyridine HCl 100 Mg Tablet 100 Mg PO TIDPC Senna-Time S Tablet (Sennosides/Docusate Sodium) 1 Each Tablet 1 Ea PO BID Klor-Con 10 (Potassium Chloride) 10 Meq Tablet.er 10 Meq PO DAILY@0700 Tramadol HCl 50 Mg Tablet 100 Mg PO Q12H PRN Cyclobenzaprine HCl 10 Mg Tablet 10 Mg PO TID PRN Reported Duloxetine HCl 60 Mg Capsule.dr 60 Mg PO DAILY PRN Omeprazole 20 Mg Tab.rap.dr 20 Mg PO DAILY PRN Ibuprofen 600 Mg Tablet 600 Mg PO Q6H PRN Flonase Allergy Relief (Fluticasone Propionate) 9.9 Ml [place].susp 2 [place] NSEACH DAILY PRN Bupropion HCl Sr (Bupropion HCl) 100 Mg Tablet.er 100 Mg PO BID Tylenol (Acetaminophen) 325 Mg Tablet 650 Mg PO Q6H PRN Levothyroxine Sodium 125 Mcg Tablet 125 Mcg PO DAILY Instructions to patient/family Please see electronic discharge instructions given to patient. Diagnosis/Problems Diagnosis/Problems (1) Debility (2) Back pain (3) Type 2 myocardial infarction (4) GRUPO on CPAP (5) Obesity, morbid, BMI 40.0-49.9 (6) Edema (7) MSSA (methicillin susceptible Staphylococcus aureus) septicemia Clinical Quality Measures DVT/VTE Risk/Contraindication: Risk Factor Score Per Nursin RFS Level Per Nursing on Admit: 1=Low/No VTE PPX KRYSTIAN LLANES DO Aug 11, 2020 08:22
--- NOTE | 2020-08-11 08:36 | Therapy Team Discharge Summary ---
Therapy Discharge Summary Discharge Recommendations Date of Discharge Physical Therapy Patient came to rehab with pneumonia; debility. Upon evaluation patient performed bed mobility and transfers with min assist, car transfer min assist, and could ambulate 50' with a rolling walker with min assist (including 50' with at least 2 turns of 90 degrees and 10' over an uneven surface). Patient has been performing bed mobility and transfer training, balance and endurance training, functional strengthening, stair training, gait training, and education. 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 Now, patient performs bed mobility and transfers with independence, car transfer independent, ambulates 150' with a rolling walker with independence (including 50' with at least 2 turns of 90 degrees and 10' over an uneven surface), can pickers material handlers an object from the floor with setup, and can go up and down 1 step using 2 handrails with min assist. Patient is discharging from this facility today and will be discharged from PT at this time. Occupational Therapy Decreased Activ Tolerance PT Instrumentation Controls Engineer Goals Care Home Goals PT Instrumentation Controls Engineer Goals Time Frame: Aug 19, 2020 Roll Left to Right (QC): 6 Sit to Lying (QC): 6 Lying-Sitting on Side/Bed(QC): 6 Sit to Stand (QC): 6 Chair/[id number]-[id number] Xfer(QC): 6 Car Transfer (QC): 6 Does the Patient Walk: Yes Walk 10 feet (QC): 6 Walk 10ft-Uneven Surface(QC): 5 Walk 50ft with 2 Turns (QC): 6 Walk 150 ft (QC): 6 Does the Pt use WC or Scooter?: No Wheel 50 feet with 2 turns (QC: 9 1 Step (curb) (QC): 6 4 Steps (QC): 6 12 Steps (QC): 5 Picking up an Object (QC): 5 OT Care Home Goals Instrumentation Controls Engineer Goals Time Frame: Aug 12, 2020 Eating (QC): 6 (met, per clinical judgement) Oral Hygiene (QC): 6 (met) Shower/Bathe Self (QC): 4 (met) Upper Body Dressing (QC): 6 (met) Lower Body Dressing (QC): 6 (not met, close SBA when hiking pants due to fatigue quickly) On/Off Footwear (QC): 6 (using AE, met) Toileting Hygiene (QC): 6 (not met, close SBA due to fatigue quickly using toilet aid tongs) Toilet/Commode Transfer (QC): 6 Additional Goals: 1-Demonstrate ADL Tasks, 2-Verbalize Understanding, 3- ImproveStrength/Sandra 1=Demonstrate adherence to instructed precautions during ADL tasks. 2=Patient will verbalize/demonstrate understanding of assistive devices/modifications for ADL. 3=Patient will improve strength/tolerance for activity to enable patient to perform ADL's. RORY MARK PT Aug 11, 2020 08:36
--- NOTE | 2020-08-11 08:52 | Cardiology Progress Note ---
Subjective Date Seen by Provider: Aug 11, 2020 Time Seen by Provider: 08:05 Subjective/Events-last exam Patient sitting in bed, no new complaints. Reports occasional episode of di zziness. Review of Systems General: No Chills, No Night Sweats, No Fatigue, No Malaise, No Appetite, No Other HEENT: No Head Aches, No Visual Changes, No Eye Pain, No Ear Pain, No Dysphasia, No Sinus Congestion, No Post Nasal Drip, No Sore Throat, No Other Pulmonary: No Dyspnea, No Cough, No Pleuritic Chest Pain, No Other Cardiovascular: No: Chest Pain, Palpitations, Orthopnea, Paroxysmal Noc. Dyspnea, Edema, Lt Headedness, Other Objective-Cardiology Exam Last Set of Vital Signs Vital Signs 08/10/20 08/10/20 08/11/20 15:54 21:33 08:01 Temp 36.0 Pulse 81 Resp 16 B/P (MAP) 100/57 (71) Pulse Ox 97 O2 Delivery Room Air Capillary Refill : Less Than 3 Seconds I&O Intake and Output 08/11/20 00:00 Intake Total 1450 ml Balance 1450 ml Intake Oral 1450 ml # Voids 5 General: Alert, Oriented X3, Cooperative HEENT: Atraumatic, PERRLA Neck: Supple, No JVD, No Thyromegaly Lungs: Clear to Auscultation, Normal Air Movement Heart: Regular Rate, Normal S1, Normal S2, No Murmurs Abdomen: Normal Bowel Sounds, Soft, No Tenderness, No Hepatosplenomegaly, No Masses Extremities: No Clubbing, No Cyanosis, No Edema, Normal Pulses, No Tenderness/Swelling Skin: No Rashes, No Breakdown, No Significant Lesion Neuro: Normal Gait, Normal Speech, Strength at 5/5 X4 Ext, Normal Tone, Sensation Intact Psych/Mental Status: Mental Status NL, Mood NL A/P-Cardiology Admission Diagnosis UTI Hypotension Anemia Hypokalemia Assessment/Plan UTI sepsis, Recent pneumonia, continue antibiotics. History of hypertension, having borderline hypotension, I will discontinue Lopressor and Lisinopril, continue to monitor blood pressure at home and bring recordings to her f/u with Dr. Maldonado Hyponatremia, deferred to the primary team. Anemia, unclear etiology. Hypokalemia, replaced and improved, continue to monitor. Borderline positive cardiac enzymes in [facility]. Borderline positive cardiac enzymes with severe systemic illness. Was labeled as type II myocardial infarction. No further chest pain or shortness of breath. echocardiogram showed normal LV function with no wall motion abnormalities. Has appt with Dr. Maldonado as outpatient. Patient was seen and evaluated with Ashley, examination performed, management plan was discussed, agree with the current scribed note, I made few changes to the note using Italic font Patient is feeling well, possible discharge today. No new complaint. Continue on current medication Clinical Quality Measures DVT/VTE Risk/Contraindication: Risk Factor Score Per Nursin RFS Level Per Nursing on Admit: 1=Low/No VTE PPX ASHLEY ONTIVEROS Aug 11, 2020 8:52 am SANDRA CONTRERAS MD Aug 11, 2020 9:33 am
--- NOTE | 2020-08-11 08:59 | Progress Note - Urology ---
Progress Note-Urology Progress Notes/Assess & Plan Progress/Assessment & Plan DOING [facility]. HOME. WILL SEE PRN Final Diagnosis UTI (RESOLVED) SHASHANK JACOME MD Aug 11, 2020 08:59
[2020-08-11] MEDS: FUROSEMIDE 20 MG (LASIX) TAB PO SCH (09:00)
[2020-08-11] MEDS: polyethylene glycoL POWDER 17 GM (MIRALAX) PACK PO SCH (09:00)
[2020-08-11] MEDS ORDERED: lisINopril 10 MG (PRINIVIL) TABLET PO SCH (09:00)
[2020-08-11] MEDS: SENNA W/DOCUSATE (SENOKOT S) TABLET PO SCH (09:00)
[2020-08-11] MEDS: DOCUSATE SODIUM 100 MG (COLACE) CAP PO SCH (09:00)
[2020-08-11 11:00] VITALS: BP 100/57
--- NOTE | 2020-08-11 11:49 | Therapy Team Discharge Summary ---
Therapy Discharge Summary Discharge Recommendations Date of Discharge 08-11-20 Therapy D/C Recommendations: Home w/ Family Support, Occupational Therapy Home Care Occupational Therapy Pt. seen by occupational therapy to increase overall strength and independence with daily tasks. Pt. has met most goals, but requires SBA with LE dressing. Pt. using AE. Requires encouragement to complete for self and motivate. Pt. to discharge home with family. Recommend hip kit and continued home health OT to work towards independence. Decreased Activ Tolerance, Decreased UE Strength, Impaired Bed Mobility, Impaired I ADL's, Impaired Self-Care Skills PT Stitching Department Supervisor Goals Half-Way Goals PT Half-Way Goals Time Frame: Aug 19, 2020 Roll Left to Right (QC): 6 Sit to Lying (QC): 6 Lying-Sitting on Side/Bed(QC): 6 Sit to Stand (QC): 6 Chair/[id number]-Jhpng Xfer(QC): 6 Car Transfer (QC): 6 Does the Patient Walk: Yes Walk 10 feet (QC): 6 Walk 10ft-Uneven Surface(QC): 5 Walk 50ft with 2 Turns (QC): 6 Walk 150 ft (QC): 6 Does the Pt use WC or Scooter?: No Wheel 50 feet with 2 turns (QC: 9 1 Step (curb) (QC): 6 4 Steps (QC): 6 12 Steps (QC): 5 Picking up an Object (QC): 5 OT Stitching Department Supervisor Goals Stitching Department Supervisor Goals Time Frame: Aug 12, 2020 Eating (QC): 6 (met, per clinical judgement) Oral Hygiene (QC): 6 (met) Shower/Bathe Self (QC): 4 (met) Upper Body Dressing (QC): 6 (met) Lower Body Dressing (QC): 6 (not met, close SBA when hiking pants due to fatigue quickly) On/Off Footwear (QC): 6 (using AE, met) Toileting Hygiene (QC): 6 (not met, close SBA due to fatigue quickly using toilet aid tongs) Toilet/Commode Transfer (QC): 6 Additional Goals: 1-Demonstrate ADL Tasks, 2-Verbalize Understanding, 3- ImproveStrength/Sandra 1=Demonstrate adherence to instructed precautions during ADL tasks. 2=Patient will verbalize/demonstrate understanding of assistive devices/modifications for ADL. 3=Patient will improve strength/tolerance for activity to enable patient to perform ADL's. SEEMA CALLES OT Aug 11, 2020 11:49
--- NOTE | 2020-08-11 13:03 | NUR ---
CM/SS DISCHARGE Finalization of discharge over a two day process. [facility]: Reviewed Medicare Compare for agencies in patient service area that also accepted her insurance. Coordinated with [facility] for RN, PT and OT. Faxed continuum of care information today as part of final dismissal. DME: The only needed assistive device was commode and patient reported that her spouse secured that for her. Unit RN completed dismissal, patient family member was here to transport a.m.
== END 2020-08-11 11:03 | disposition home health service (06) | DRG 91 ==
PROVIDERS: ADMIT Internal Medicine; ATTEND Internal Medicine
DX: G72.81 Critical illness myopathy (principal); I21.A1 Myocardial infarction type 2; N39.0 Urinary tract infection, site not specified; T80.1XXA Vascular complications following infusion, transfusion and therapeutic injection, initial encounter; I50.32 Chronic diastolic (congestive) heart failure; E87.1 Hypo-osmolality and hyponatremia; Z68.42 Body mass index [BMI] 45.0-49.9, adult; M62.830 Muscle spasm of back; B96.5 Pseudomonas (aeruginosa) (mallei) (pseudomallei) as the cause of diseases classified elsewhere; I95.9 Hypotension, unspecified; E87.6 Hypokalemia; I80.8 Phlebitis and thrombophlebitis of other sites; I11.0 Hypertensive heart disease with heart failure; I27.20 Pulmonary hypertension, unspecified; I35.1 Nonrheumatic aortic (valve) insufficiency; D72.825 Bandemia; D47.3 Essential (hemorrhagic) thrombocythemia; M19.91 Primary osteoarthritis, unspecified site; K59.00 Constipation, unspecified; N39.44 Nocturnal enuresis; E66.01 Morbid (severe) obesity due to excess calories; G47.33 Obstructive sleep apnea (adult) (pediatric); F32.9 Major depressive disorder, single episode, unspecified; D64.9 Anemia, unspecified; E78.00 Pure hypercholesterolemia, unspecified; E03.9 Hypothyroidism, unspecified
CPT/HCPCS: 36415; 76937; 80053; 81000; 82962; 83540; 83605; 84145; 85025; 87077; 87088; 87186; 93306